=== PATIENT | female | born 1990 | race African-American/Black ===

== ENCOUNTER 2016-11-25 20:07 | Emergency (ER) | payer SELFPAY ==
[~2016-11-25] VITALS: Ht 185.4 cm; Wt 80.7 kg
[~2016-11-25 20:07] MED LIST: ALPR2TAB2 PO; BUPR150T6 PO; CRAN1CAP13 PO; CYAN1TAB28 PO; DESV100T PO; DEXT30TA2 PO; DIPH25CA58 PO; ENOX40DI SQ; HYDR-971 PO; HYDR50TA PO; IBUP800T2 PO; LEVE100020 PO; MESA800T2 PO; NITR100C62 PO; PANT20TA2 PO; PANT40TA3 PO; PENI500T PO; PRAZ1CAP2 PO; PRED50TA PO; TRAM50TA PO; TRAZ50TA15 PO; VENL75TA PO; WARF1TAB; ZOLP5TAB5 PO
[2016-11-25] MEDS ORDERED: TOPI50TA38 PO ×2 (20:40→23:28)
[2016-11-25] MEDS ORDERED: TRAM50TA PO ×2 (20:42→23:28)
[2016-11-25] MEDS ORDERED: PARO20TA55 PO (20:43)
[2016-11-25] MEDS ORDERED: CLON1TAB3 PO (20:45)
[2016-11-25] MEDS ORDERED: OLAN20TA3 PO (20:45)
[2016-11-25] MEDS ORDERED: PRED-220 PO (20:48)
[2016-11-25] MEDS ORDERED: ENOX40DI SQ (20:49)
[2016-11-25 21:10] LABS: BASO % 0 % (0-3); EOS % 0 % (0-3); HEMATOCRIT 31.3 % (36.0-47.0); LYMPH # 0.8 x10^3/uL (1.0-4.8); LYMPH % 12 % (24-48); MEAN CORPUSCULAR HEMOGLOBIN 27 pg (25-35); MEAN CORPUSCULAR HGB CONC 32 g/dL (31-37); MEAN CORPUSCULAR VOLUME 85 fL (79-100); MONO % 3 % (0-9); NEUT % 85 % (31-73); PLATELET COUNT 271 x10^3/uL (140-400); RED BLOOD COUNT 3.68 x10^6/uL (3.50-5.40); RED CELL DISTRIBUTION WIDTH 15.3 % (11.5-14.5); WHITE BLOOD COUNT 6.9 x10^3/uL (4.0-11.0)
--- NOTE | 2016-11-25 21:28 | ED.ADGEN ---
Past Medical History Past Medical History: Seizure, Stroke, Other Additional Past Medical Histor: Ulcerative colitis, Lupus & Protein S deficiency causing frequent DVTs Past Surgical History: Angioplasty, Other Additional Past Surgical Histo: Filter & x4 stents LEFT LEG Alcohol Use: None Drug Use: Marijuana Adult General Chief Complaint Chief Complaint: CHEST PAIN HPI HPI Patient is a 26 year old woman, history of ulcer colitis, CVA, protein C deficiency status post multiple DVTs, who presents to the emergency department with left-sided chest pain for the past 2 days. Patient's pain is located in the left side of her chest, that is radiating across to the right side of her chest, describes a sharp and stabbing in nature. Similar pain that she experienced previously, she states before she's had a seizure. Patient was released from incarceration 3 days ago, and states that she has only had some her medications since that time. She states she try to follow-up with her primary care provider but was unable to get an appointment for the next several weeks. She states she's not had any seizure activity, but states that she has been experiencing this pain constantly for the past 2 days, denies any history of PE, slightly nauseous and slightly lightheaded. Denies any weakness numbness or tingling. No abdominal pain. States she is not certain if she might be , her last mental period was 4 months ago. Review of Systems Review of Systems Constitutional: Denies fever or chills. [] Eyes: Denies change in visual acuity. [] HENT: Denies nasal congestion or sore throat. [] Respiratory: Denies cough or shortness of breath. [] Cardiovascular: Left-sided chest pain, radiating to the left arm. Radiating across to the right chest. GI: Denies abdominal pain, nausea, vomiting, bloody stools or diarrhea. [] : Denies dysuria. [] Musculoskeletal: Denies back pain or joint pain. [] Integument: Denies rash. [] Neurologic: Denies headache, focal weakness or sensory changes. [] Endocrine: Denies polyuria or polydipsia. [] Lymphatic: Denies swollen glands. [] Psychiatric: Denies depression or anxiety. [] Current Medications Current Medications Current Medications Medications (Trade) Dose Ordered Sig/Cyndi Start Time Stop Time Status Last Admin Dose Admin Info (Do NOT chart on this entry -- for MONITORING) 1 each PRN DAILY PRN 11/25/16 22:45 11/27/16 22:44 Iohexol (Omnipaque 300 Mg/ml) 75 ml 1X ONCE 11/25/16 22:45 11/25/16 22:46 DC Ondansetron HCl (Zofran) 4 mg 1X ONCE 11/25/16 21:30 11/25/16 21:31 DC 11/25/16 22:02 4 MG Sodium Chloride (Iv Sodium Chloride 0.9% 1000ml Bag) 1,000 ml @ 1,000 mls/hr 1X ONCE 11/25/16 21:30 11/25/16 22:29 DC 11/25/16 22:01 1,000 MLS/HR Tramadol HCl (Ultram) 50 mg 1X ONCE 11/25/16 22:00 11/25/16 22:01 DC 11/25/16 22:02 50 MG Allergies Allergies Allergies Coded Allergies Type Severity Reaction Last Updated Verified prochlorperazine Allergy Severe DYSTONIC REACTION 03/22/16 Yes warfarin Allergy Intermediate "AGGRAVATES ULCERS IN STOMACH" 03/22/16 Yes Physical Exam Physical Exam Constitutional: Well developed, well nourished, no acute distress, non-toxic appearance. [] HENT: Normocephalic, atraumatic, bilateral external ears normal, oropharynx moist, no oral exudates, nose normal. [] Eyes: PERRLA, EOMI, conjunctiva normal, no discharge. [] Neck: Normal range of motion, no tenderness, supple, no stridor. [] Cardiovascular:Heart rate regular rhythm, no murmur, S1, S2, tachycardic, no rubs or gallops. [] Lungs & Thorax: Bilateral breath sounds clear to auscultation, no wheezing, rhonchi, rales. Patient with tenderness to palpation across the anterior left chest and right chest. [] Abdomen: Bowel sounds normal, soft, no tenderness, no masses, no pulsatile masses. [] Skin: Warm, dry, no erythema, no rash. [] Back: No tenderness, no CVA tenderness. [] Extremities: No tenderness, no cyanosis, no clubbing, ROM intact, no edema. [] Negative Homans sign. Neurologic: Alert and oriented X 3, normal motor function, normal sensory function, no focal deficits noted. [] Psychologic: Affect normal, judgement normal, mood normal. [] Current Patient Data Vital Signs Vital Signs Date Time Temp Pulse Resp B/P Pulse Ox O2 Delivery O2 Flow Rate FiO2 11/25/16 22:02 20 97 Room Air 11/25/16 20:29 108 134/76 Lab Values Laboratory Tests Test 11/25/16 20:20 11/25/16 21:20 11/25/16 21:45 White Blood Count 6.9x10^3/uL (4.0-11.0) Red Blood Count 3.68x10^6/uL (3.50-5.40) Hemoglobin 10.0g/dL (12.0-15.5) L Hematocrit 31.3% (36.0-47.0) L Mean Corpuscular Volume 85fL (79-100) Mean Corpuscular Hemoglobin 27pg (25-35) Mean Corpuscular Hemoglobin Concent 32g/dL (31-37) Red Cell Distribution Width 15.3% (11.5-14.5) H Platelet Count 271x10^3/uL (140-400) Neutrophils (%) (Auto) 85% (31-73) H Lymphocytes (%) (Auto) 12% (24-48) L Monocytes (%) (Auto) 3% (0-9) Eosinophils (%) (Auto) 0% (0-3) Basophils (%) (Auto) 0% (0-3) Neutrophils # (Auto) 5.9x10^3uL (1.8-7.7) Lymphocytes # (Auto) 0.8x10^3/uL (1.0-4.8) L Monocytes # (Auto) 0.2x10^3/uL (0.0-1.1) Eosinophils # (Auto) 0.0x10^3/uL (0.0-0.7) Basophils # (Auto) 0.0x10^3/uL (0.0-0.2) D-Dimer (Katie) 1.05ug/mlFEU (0.00-0.50) H Urine Test Negative (NEG) Sodium Level 139mmol/L (136-145) Potassium Level 4.0mmol/L (3.5-5.1) Chloride Level 103mmol/L (98-107) Carbon Dioxide Level 22mmol/L (21-32) Anion Gap 14 (6-14) Blood Urea Nitrogen 13mg/dL (7-20) Creatinine 0.7mg/dL (0.6-1.0) Estimated GFR (Cockcroft-Gault) 120.6 BUN/Creatinine Ratio 19 (6-20) Glucose Level 102mg/dL (70-99) H Calcium Level 9.1mg/dL (8.5-10.1) Total Bilirubin 0.1mg/dL (0.2-1.0) L Aspartate Amino Transferase (AST) 26U/L (15-37) Alanine Aminotransferase (ALT) 26U/L (14-59) Alkaline Phosphatase 92U/L (46-116) Troponin I Quantitative < 0.017ng/mL (0.000-0.055) Total Protein 8.5g/dL (6.4-8.2) H Albumin 3.4g/dL (3.4-5.0) Albumin/Globulin Ratio 0.7 (1.0-1.7) L Lipase 153U/L (73-393) Urine Opiates Screen Pos (NEG) Urine Methadone Screen Neg (NEG) Urine Barbiturates Neg (NEG) Urine Phencyclidine Screen Neg (NEG) Urine Amphetamine/Methamphetamine Pos (NEG) Urine Benzodiazepines Screen Neg (NEG) Urine Cocaine Screen Neg (NEG) Urine Cannabinoids Screen Neg (NEG) Urine Ethyl Alcohol Neg (NEG) Influenza Type A Antigen Negative (NEGATIVE) Influenza Type B Antigen Negative (NEGATIVE) Laboratory Tests 11/25/16 20:20 Laboratory Tests 11/25/16 20:20 EKG EKG EC: Sinus tachycardia, heart rate 115 beats minute, upright axis, QTC of 439, OR 148, QRS of 88, no ST elevations or depressions, contour abnormalities noted in the inferior anterior lateral leads, abnormal ECG, does not meet STEMI criteria. As interpreted by me. [] Radiology/Procedures Radiology/Procedures Chest x-ray: PA and lateral: 2 view: Normal cardiopulmonary silhouette, no infiltrates, no effusions, no pneumothorax, no soft tissue or bony abnormalities identified. As interpreted by me. [] Course & Med Decision Making Course & Med Decision Making Pertinent Labs and Imaging studies reviewed. (See chart for details) Patient states that she's been compliant with her Lovenox. She denies any swelling in the extremities, right leg pain. Pain is reproducible across the anterior portion of her chest. She is requesting tramadol for the pain. Patient states she has not been able to get her tramadol or her Topamax for the past several days due to issues filling prescriptions being released from incarceration. Discussed with her that we'll to provide her with her bupropion, her tramadol, and her Topamax, however long-term and additional medications most provided by her primary care provider. She voices understanding. On reevaluation states she is feeling better after receiving her tramadol. I did discuss obtaining additional imaging of the chest in addition to the x-ray which was on concerning, due to concerns that she may have a recurrent blood clot, despite the fact that she has a filter in place. After discussion, patient did decline, at this time her oxygenation saturation is 9800% room air, respiratory rate is 18 and unlabored, heart rate is in the 80s. Patient states she has fluctuating tachycardia times. She did receive an ambulatory trial in the ED without any difficulty, states that she understands that we cannot fully rule out any potentially occult pathology in the chest without a CT, for which she is at higher risk due to her history, although she states she is taking her Lovenox as stated. Patient states that this time she would prefer to be discharged, will follow up with her primary care provider, and return to the ED if any concerning symptoms did develop. We discussed at length with the symptoms would entail, patient voiced agreement and understanding, discharged home with prescriptions as stated, in stable condition with plan as above. Dragon Disclaimer Dragon Disclaimer This electronic medical record was generated, in whole or in part, using a voice recognition dictation system. Departure Impression: Primary Impression: Chest pain Disposition: HOME, SELF-CARE Condition: IMPROVED Scripts Bupropion Hcl (Bupropion Hcl Sr)150 Mg Tablet.er150 Mg PO DAILY #30 Prov:MIKAYLA DESAI DO 11/25/16 Topiramate (Topamax)50 Mg Tablet1 Tab PO BID #60 TAB Ref 1 Prov:MIKAYLA DESAI DO 11/25/16 Tramadol Hcl 50 Mg Tablet1 Tab PO PRN Q6HRS PRN PAIN #20 TAB Prov:MIKAYLA DESAI DO 11/25/16 MIKAYLA DESAI DO Nov 25, 2016 21:28
[2016-11-25] MEDS ORDERED: IV NORMAL SALINE 1000ML BAG 1,000 ML IV ONE (21:30)
[2016-11-25] MEDS ORDERED: ONDANSETRON PF 4 MG/2 ML VIAL. IV ONE (21:30)
[2016-11-25 21:43] LABS: NEG OBC UR NEG; POS OBC UR POS
[2016-11-25 21:47] LABS: BARBITURATES NEG (NEG); BENZODIAZEPINES NEG (NEG); CANNABINOIDS NEG (NEG); COCAINE NEG (NEG); METHADONE NEG (NEG); OPIATES POS (NEG); PHENCYCLIDINE NEG (NEG)
[2016-11-25 21:53] LABS: ETHANOL, URINE NEG (NEG)
[2016-11-25] MEDS ORDERED: TRAMADOL 50 MG TABLET. PO ONE (22:00)
[2016-11-25 22:05] LABS: CALCIUM 9.1 mg/dL (8.5-10.1); CREATININE 0.7 mg/dL (0.6-1.0); GFR 120.6
[2016-11-25 22:11] LABS: ALBUMIN 3.4 g/dL (3.4-5.0); ALBUMIN/GLOBULIN RATIO 0.7 (1.0-1.7); TOTAL BILIRUBIN 0.1 mg/dL (0.2-1.0); TOTAL PROTEIN 8.5 g/dL (6.4-8.2)
[2016-11-25 22:18] LABS: OBC FLU VALID
[2016-11-25] MEDS ORDERED: CONTRAST GIVEN MC PRN (22:45)
[2016-11-25] MEDS ORDERED: IOHEXOL 300 MG/ML 75 ML VIAL IV ONE (22:45)
[2016-11-25 23:20] VITALS: BP 144/94
[2016-11-25] MEDS ORDERED: BUPR150T20 PO (23:28)
--- NOTE | 2016-11-26 08:03 | RAD ---
Chest, 2 views, 11/25/2016: History: Chest pain The heart size and pulmonary vascularity are normal. No pulmonary infiltrates are seen. There is no evidence of pleural fluid. IMPRESSION: No acute cardiopulmonary abnormality is detected.
== END 2016-11-26 00:15 | disposition home or self-care (01) ==
LOC: ER 20:07
DX: R07.9 Chest pain, unspecified (principal); F12.10 Cannabis abuse, uncomplicated; Z86.73 Personal history of transient ischemic attack (TIA), and cerebral infarction without residual deficits; Z86.718 Personal history of other venous thrombosis and embolism; Z88.8 Allergy status to other drugs, medicaments and biological substances; Z98.62 Peripheral vascular angioplasty status
CPT/HCPCS: 36415; 71020; 80053; 80305; 81025; 83690; 84484; 84703; 85027; 85379; 87804; 96361; 96374; 99285; J2405; J7030; G0481

== ENCOUNTER 2016-12-14 15:42 | Emergency (ER) | payer OTHER ==
[~2016-12-14] VITALS: Ht 185.4 cm; Wt 80.7 kg
[~2016-12-14 15:42] MED LIST changes: +BUPR150T20 PO; +CLON1TAB3 PO; +OLAN20TA3 PO; +PARO20TA55 PO; +PRED-220 PO; +TOPI50TA38 PO
[2016-12-14] MEDS ORDERED: HYDROMORPHONE 2 MG/ML VIAL. IV ONE (16:45)
[2016-12-14 16:56] LABS: BASO % 1 % (0-3); EOS % 6 % (0-3); HEMATOCRIT 34.2 % (36.0-47.0); HEMOGLOBIN 10.9 g/dL (12.0-15.5); LYMPH # 1.4 x10^3/uL (1.0-4.8); LYMPH % 23 % (24-48); MEAN CORPUSCULAR HEMOGLOBIN 28 pg (25-35); MEAN CORPUSCULAR HGB CONC 32 g/dL (31-37); MEAN CORPUSCULAR VOLUME 86 fL (79-100); MONO % 11 % (0-9); NEUT % 59 % (31-73); PLATELET COUNT 209 x10^3/uL (140-400); RED BLOOD COUNT 3.96 x10^6/uL (3.50-5.40); RED CELL DISTRIBUTION WIDTH 17.7 % (11.5-14.5)
[2016-12-14 17:05] LABS: CALCIUM 9.1 mg/dL (8.5-10.1); CREATININE 0.9 mg/dL (0.6-1.0); GFR 90.2; POTASSIUM 3.7 mmol/L (3.5-5.1)
[2016-12-14 17:06] LABS: INR 1.1 (0.8-1.1); PROTHROMBIN TIME PATIENT 13.5 SEC (11.7-14.0)
[2016-12-14 17:09] VITALS: BP 108/64
[2016-12-14 17:11] LABS: ALBUMIN 3.3 g/dL (3.4-5.0); DIRECT BILIRUBIN 0.1 mg/dL (0.0-0.2); TOTAL BILIRUBIN 0.2 mg/dL (0.2-1.0); TOTAL PROTEIN 8.2 g/dL (6.4-8.2)
--- NOTE | 2016-12-14 17:38 | RAD ---
Left lower extremity venous ultrasound, 12/14/2016: HISTORY - LEG PAIN Duplex evaluation of the deep veins in the left lower extremity was performed including grayscale, color flow and spectral Doppler analysis. The left common femoral and superficial femoral veins are patent. There is a small amount of nonocclusive thrombus in the left popliteal vein. There is thrombus in both peroneal veins in the left lower leg and 1 of the posterior tibial veins. IMPRESSION Deep vein thrombosis in the left popliteal, posterior tibial and peroneal veins as described above. Electronically signed by: Francisco Hawkins MD (Dec 14, 2016 17:36:41)
--- NOTE | 2016-12-14 17:46 | PHYS DOC ---
Past Medical History Past Medical History: Anemia, Bipolar, Depression, Seizure, Stroke, Other Additional Past Medical Histor: Ulcerative colitis, Lupus & Protein S deficiency causing frequent DVTs Past Surgical History: Angioplasty, Other Additional Past Surgical Histo: Filter & x4 stents LEFT LEG, D&C Alcohol Use: None Drug Use: Marijuana Adult General Chief Complaint Chief Complaint: LOWER EXTREMITY SWELLING HPI HPI Patient is a 26 year old female who presents with LLE pain and swelling. Patient reports that for the past week she has been having increasing swelling, pain, and discoloration of her LLE around her ankle and foot. No trauma or other inciting event. Patient does have h/o DVT in that leg, and says these symptoms are similar. Patient has multiple stents in that leg as well as IVC filter. She uses lovenox BID for anticoagulation; she was initially on warfarin but this was discontinued due to bleeding stomach ulcer. Patient says she has been compliant with the lovenox. She has not taken anything for pain prior to arrival. Lastly, patient describes intermittent chest discomfort. This is a chronic pain and is unchanged from baseline. She denies SOB. Current Medications Current Medications Current Medications Medications (Trade) Dose Ordered Sig/Cyndi Start Time Stop Time Status Last Admin Dose Admin Hydromorphone HCl (Dilaudid) 0.5 mg 1X ONCE 12/14/16 16:45 12/14/16 16:46 DC 12/14/16 16:54 0.5 MG Allergies Allergies Allergies Coded Allergies Type Severity Reaction Last Updated Verified prochlorperazine Allergy Severe DYSTONIC REACTION 03/22/16 Yes warfarin Allergy Intermediate "AGGRAVATES ULCERS IN STOMACH" 03/22/16 Yes Physical Exam Physical Exam Constitutional: Well developed, well nourished, no acute distress, non-toxic appearance HENT: Normocephalic, atraumatic, bilateral external ears normal Eyes: EOMI, conjunctiva normal, no discharge Neck: Normal range of motion, no stridor Cardiovascular: Tachycardic, regular rhythm, no murmur Lungs & Thorax: Bilateral breath sounds clear to auscultation Abdomen: Bowel sounds normal, soft, non-distended, no TTP Skin: Warm, dry, no erythema, no rash Extremities: L ankle and foot discolored (dark), swollen, generally TTP; 2+ DP pulse, brisk cap refill in toes; motor function and sensation to light touch preserved Neurologic: Alert and oriented X 3, no gross deficits noted Current Patient Data Vital Signs Vital Signs Date Time Temp Pulse Resp B/P Pulse Ox O2 Delivery O2 Flow Rate FiO2 12/14/16 17:09 92 14 108/64 Room Air 12/14/16 16:39 97 12/14/16 16:30 98.4 98.4 Lab Values Laboratory Tests Test 12/14/16 16:42 White Blood Count 6.0x10^3/uL (4.0-11.0) Red Blood Count 3.96x10^6/uL (3.50-5.40) Hemoglobin 10.9g/dL (12.0-15.5) L Hematocrit 34.2% (36.0-47.0) L Mean Corpuscular Volume 86fL (79-100) Mean Corpuscular Hemoglobin 28pg (25-35) Mean Corpuscular Hemoglobin Concent 32g/dL (31-37) Red Cell Distribution Width 17.7% (11.5-14.5) H Platelet Count 209x10^3/uL (140-400) Neutrophils (%) (Auto) 59% (31-73) Lymphocytes (%) (Auto) 23% (24-48) L Monocytes (%) (Auto) 11% (0-9) H Eosinophils (%) (Auto) 6% (0-3) H Basophils (%) (Auto) 1% (0-3) Neutrophils # (Auto) 3.5x10^3uL (1.8-7.7) Lymphocytes # (Auto) 1.4x10^3/uL (1.0-4.8) Monocytes # (Auto) 0.7x10^3/uL (0.0-1.1) Eosinophils # (Auto) 0.4x10^3/uL (0.0-0.7) Basophils # (Auto) 0.0x10^3/uL (0.0-0.2) Prothrombin Time 13.5SEC (11.7-14.0) Prothrombin Time INR 1.1 (0.8-1.1) PTT 28SEC (24-38) Sodium Level 140mmol/L (136-145) Potassium Level 3.7mmol/L (3.5-5.1) Chloride Level 106mmol/L (98-107) Carbon Dioxide Level 25mmol/L (21-32) Anion Gap 9 (6-14) Blood Urea Nitrogen 18mg/dL (7-20) Creatinine 0.9mg/dL (0.6-1.0) Estimated GFR (Cockcroft-Gault) 90.2 Glucose Level 96mg/dL (70-99) Calcium Level 9.1mg/dL (8.5-10.1) Total Bilirubin 0.2mg/dL (0.2-1.0) Direct Bilirubin 0.1mg/dL (0.0-0.2) Aspartate Amino Transferase (AST) 18U/L (15-37) Alanine Aminotransferase (ALT) 15U/L (14-59) Alkaline Phosphatase 84U/L (46-116) Total Protein 8.2g/dL (6.4-8.2) Albumin 3.3g/dL (3.4-5.0) L Laboratory Tests 12/14/16 16:42 Laboratory Tests 12/14/16 16:42 EKG EKG EKG (my read): sinus rhythm, rate 108, normal axis, intervals wnl, nonspecific ST changes Radiology/Procedures Radiology/Procedures LLE US: IMPRESSION Deep vein thrombosis in the left popliteal, posterior tibial and peroneal veins as described above. Course & Med Decision Making Course & Med Decision Making Pertinent Labs and Imaging studies reviewed. (See chart for details) Patient is 26 year old female who presents with LLE pain and swelling. Concern for possible DVT. Will obtain LLE US in addition to labs. Pain medication ordered for pain control. Labs largely unremarkable; hgb 10.9 at baseline. Imaging results as above. I spoke with Dr. Daniel of vascular surgery who says that with h/o bleeding gastric ulcer, would be ok to keep patient on lovenox rather than changing to another anticoagulant but recommended consultation with hematology as well. I then spoke with Dr. Ivey of hematology. Per his recommendation will change patient from lovenox to arixtra 7.5mg daily given subcutaneously. I discussed this with patient and recommended admission to hospital overnight. Patient refuses to stay in hospital, even after I discussed my concerns with her going home. She is A&Ox4 and acknowledges my concerns; I have given her instructions for close outpatient follow up as well as strict return precautions. Will discharge with rx for arixtra (and instruction to cease lovenox once she starts this new med), norco for pain control, and refill of keppra per patient request as she has run out of this med. Juma Disclaimer Juma Disclaimer This electronic medical record was generated, in whole or in part, using a voice recognition dictation system. Departure Departure Impression: Primary Impression: DVT (deep venous thrombosis) Disposition: HOME, SELF-CARE Condition: STABLE Referrals: LIBRADO IVEY MD, MICHAEL M MD Patient Instructions: Deep Vein Thrombosis Additional Instructions: Thank you for allowing us to provide care today in the Emergency Department. You have chosen to go home rather than stay in the hospital. If you have any new concerns, you are welcome to return. Take the provided medication as directed. You will give yourself a shot one time daily with this medication. 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 Schedule a follow up appointment with your primary care doctor and with a yarn hauler using the provided contact information. Return promptly to the Emergency Department if you develop any new or concerning symptoms, such as blood in your stool or worsening swelling in your leg. Scripts Hydrocodone/Apap 5-325 ([place] 5-325 Tablet)1 Each Tablet1-2 Tab PO Q6HRS PRN PAIN #25 TAB Prov:BRETT AVALOS MD 12/14/16 Levetiracetam (Keppra)1,000 Mg Tablet1,000 Mg PO TID 14 Days Prov:BRETT AVALOS MD 12/14/16 Fondaparinux Sodium (Arixtra)7.5 Mg/0.6 Ml Disp.syrin7.5 Mg SQ DAILY 14 Days Prov:BRETT AVALOS MD 12/14/16 BRETT AVALOS MD Dec 14, 2016 17:46
[2016-12-14] MEDS ORDERED: LEVE100020 PO (18:18)
[2016-12-14] MEDS ORDERED: [UNRECOGNIZED DRUG - CODE] SQ (18:18)
[2016-12-14] MEDS ORDERED: HYDR-971 PO (18:18)
--- NOTE | 2016-12-15 09:48 | EKG ---
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
== END 2016-12-14 18:26 | disposition home or self-care (01) ==
LOC: ER 16:01
DX: I82.4Z2 Acute embolism and thrombosis of unspecified deep veins of left distal lower extremity (principal); F31.9 Bipolar disorder, unspecified; F12.10 Cannabis abuse, uncomplicated; Z98.890 Other specified postprocedural states; Z95.5 Presence of coronary angioplasty implant and graft; Z86.73 Personal history of transient ischemic attack (TIA), and cerebral infarction without residual deficits; Z88.8 Allergy status to other drugs, medicaments and biological substances
CPT/HCPCS: 36415; 80048; 80076; 85027; 85610; 85730; 93005; 93971; 96374; 99285; J1170

== ENCOUNTER 2016-12-15 19:40 | Inpatient (IN) | payer OTHER ==
[~2016-12-15] VITALS: Ht 185.4 cm; Wt 81.6 kg
[~2016-12-15 19:40] MED LIST changes: +[UNRECOGNIZED DRUG - CODE] SQ
[2016-12-15] MEDS ORDERED: IV NORMAL SALINE 1000ML BAG 1,000 ML IV SCH (20:18)
[2016-12-15 20:26] LABS: BASO % 1 % (0-3); EOS % 4 % (0-3); HEMATOCRIT 32.1 % (36.0-47.0); HEMOGLOBIN 10.2 g/dL (12.0-15.5); LYMPH # 1.5 x10^3/uL (1.0-4.8); LYMPH % 29 % (24-48); MEAN CORPUSCULAR HEMOGLOBIN 28 pg (25-35); MEAN CORPUSCULAR HGB CONC 32 g/dL (31-37); MEAN CORPUSCULAR VOLUME 87 fL (79-100); MONO % 13 % (0-9); NEUT % 53 % (31-73); PLATELET COUNT 200 x10^3/uL (140-400); RED BLOOD COUNT 3.68 x10^6/uL (3.50-5.40); RED CELL DISTRIBUTION WIDTH 17.8 % (11.5-14.5); WHITE BLOOD COUNT 5.1 x10^3/uL (4.0-11.0)
[2016-12-15] MEDS ORDERED: ONDANSETRON PF 4 MG/2 ML VIAL. IV ONE (20:30)
--- NOTE | 2016-12-15 20:36 | PHYS DOC ---
Past Medical History Past Medical History: Anemia, Bipolar, Depression, Seizure, Stroke, Other Additional Past Medical Histor: Ulcerative colitis, Lupus & Protein S deficiency causing frequent DVTs Past Surgical History: Angioplasty, Other Additional Past Surgical Histo: Filter & x4 stents LEFT LEG, D&C Alcohol Use: None Drug Use: Marijuana Adult General Chief Complaint Chief Complaint: SHORTNESS OF BREATH HPI HPI Patient is a 26 year old female who presents with complaint of left lower extremity pain and swelling. Patient was seen yesterday in the emergency department and was diagnosed with a DVT. Patient has history of protein S deficiency and systemic lupus erythematosus. The patient has an IVC filter in place that she had been on previous anticoagulation but had developed a GI bleed. Patient came in because she is having worsening severe pain in her left lower extremity and also states that she has been having chest pain and shortness of breath. The patient was originally recommended to be admitted yesterday for treatment however she declined at that time. Patient states that due to worsening pain and worsening shortness of breath she came to the emergency department today and thinks that she does need to be admitted. Patient has not had any fevers. Patient rates pain currently is 10 out of 10. Review of Systems Review of Systems Constitutional: Denies fever or chills [] Eyes: Denies change in visual acuity, redness, or eye pain [] HENT: Denies nasal congestion or sore throat [] Respiratory: Shortness of breath [] Cardiovascular: Chest pain [] GI: Denies abdominal pain, nausea, vomiting, bloody stools or diarrhea [] : Denies dysuria or hematuria [] Musculoskeletal: Left lower show any pain and swelling [] Integument: Denies rash or skin lesions [] Neurologic: Denies headache, focal weakness or sensory changes [] Current Medications Current Medications Current Medications Medications (Trade) Dose Ordered Sig/Cyndi Start Time Stop Time Status Last Admin Dose Admin Heparin Sodium (Porcine) (Heparin Sodium) 1,100 unit PRN Q6HRS PRN 12/15/16 20:45 Heparin Sodium (Porcine) 5750 unit 5,750 unit 1X ONCE 12/15/16 20:45 12/15/16 20:50 DC 12/15/16 21:08 5,750 UNIT Heparin Sodium/ Dextrose 500 ml @ 0 mls/hr CONT PRN 12/15/16 20:45 12/15/16 21:11 0 MLS/HR Hydromorphone HCl (Dilaudid) 1 mg PRN Q1HR PRN 12/15/16 20:30 12/16/16 03:12 1 MG Iohexol (Omnipaque 300 Mg/ml) 75 ml 1X ONCE 12/15/16 20:45 12/15/16 20:46 DC Ondansetron HCl (Zofran) 4 mg 1X ONCE 12/15/16 20:30 12/15/16 20:31 DC 12/15/16 20:56 4 MG Sodium Chloride (Iv Sodium Chloride 0.9% 1000ml Bag) 1,000 ml @ 100 mls/hr Q10H 12/15/16 20:18 12/16/16 06:17 12/15/16 20:30 100 MLS/HR Allergies Allergies Allergies Coded Allergies Type Severity Reaction Last Updated Verified prochlorperazine Allergy Severe DYSTONIC REACTION 03/22/16 Yes warfarin Allergy Intermediate "AGGRAVATES ULCERS IN STOMACH" 03/22/16 Yes Physical Exam Physical Exam Constitutional: Alert, afebrile, appears in moderate discomfort. [] HENT: Normocephalic, atraumatic, bilateral external ears normal, oropharynx moist, no oral exudates, nose normal. [] Eyes: PERRLA, EOMI, conjunctiva normal, no discharge. [] Neck: Normal range of motion, no tenderness, supple, no stridor. [] Cardiovascular: Tachycardia, regular rhythm, no murmur [] Lungs & Thorax: Bilateral breath sounds clear to auscultation [] Abdomen: Bowel sounds normal, soft, no tenderness, no masses, no pulsatile masses. [] Skin: Warm, dry, no erythema, no rash. [] Back: No tenderness, no CVA tenderness. [] Extremities: Left lower extremity displays mild to moderate soft tissue swelling , calf tenderness present,, no cyanosis, no clubbing, ROM intact. [] Neurologic: Alert and oriented X 3, normal motor function, normal sensory function, no focal deficits noted. [] Current Patient Data Vital Signs Vital Signs Date Time Temp Pulse Resp B/P Pulse Ox O2 Delivery O2 Flow Rate FiO2 12/15/16 21:17 84 24 107/57 100 Room Air 12/15/16 19:50 98.3 98.3 Lab Values Laboratory Tests Test 12/15/16 20:19 White Blood Count 5.1x10^3/uL (4.0-11.0) Red Blood Count 3.68x10^6/uL (3.50-5.40) Hemoglobin 10.2g/dL (12.0-15.5) L Hematocrit 32.1% (36.0-47.0) L Mean Corpuscular Volume 87fL (79-100) Mean Corpuscular Hemoglobin 28pg (25-35) Mean Corpuscular Hemoglobin Concent 32g/dL (31-37) Red Cell Distribution Width 17.8% (11.5-14.5) H Platelet Count 200x10^3/uL (140-400) Neutrophils (%) (Auto) 53% (31-73) Lymphocytes (%) (Auto) 29% (24-48) Monocytes (%) (Auto) 13% (0-9) H Eosinophils (%) (Auto) 4% (0-3) H Basophils (%) (Auto) 1% (0-3) Neutrophils # (Auto) 2.7x10^3uL (1.8-7.7) Lymphocytes # (Auto) 1.5x10^3/uL (1.0-4.8) Monocytes # (Auto) 0.7x10^3/uL (0.0-1.1) Eosinophils # (Auto) 0.2x10^3/uL (0.0-0.7) Basophils # (Auto) 0.0x10^3/uL (0.0-0.2) Prothrombin Time 15.3SEC (11.7-14.0) H Prothrombin Time INR 1.3 (0.8-1.1) H PTT 34SEC (24-38) Sodium Level 142mmol/L (136-145) Potassium Level 3.4mmol/L (3.5-5.1) L Chloride Level 107mmol/L (98-107) Carbon Dioxide Level 24mmol/L (21-32) Anion Gap 11 (6-14) Blood Urea Nitrogen 14mg/dL (7-20) Creatinine 0.9mg/dL (0.6-1.0) Estimated GFR (Cockcroft-Gault) 90.2 BUN/Creatinine Ratio 16 (6-20) Glucose Level 99mg/dL (70-99) Calcium Level 8.9mg/dL (8.5-10.1) Total Bilirubin 0.2mg/dL (0.2-1.0) Aspartate Amino Transferase (AST) 19U/L (15-37) Alanine Aminotransferase (ALT) 15U/L (14-59) Alkaline Phosphatase 75U/L (46-116) Total Protein 8.1g/dL (6.4-8.2) Albumin 3.3g/dL (3.4-5.0) L Albumin/Globulin Ratio 0.7 (1.0-1.7) L Serum Test, Qualitative Negative (NEG) Laboratory Tests 12/15/16 20:19 Laboratory Tests 12/15/16 20:19 EKG EKG Interpreted by me: Heart rate 89, sinus rhythm, normal intervals, normal axis, no acute ST/T-wave abnormalities present [] Radiology/Procedures Radiology/Procedures One view AP chest x-ray interpreted by me: No infiltrate, no effusions, normal cardiac silhouette [facility] [address] [place], [place] [id number] IMAGING REPORT Signed PATIENT: TIM FISH ACCOUNT: [id number] : 1990 LOCATION: [facility] AGE: 26 SEX: F EXAM STATUS: ADM IN ORD. PHYSICIAN: MIGUE RUVALCABA MD REASON: rule out PE/ NM KNOWS PROCEDURE: LUNG VENT/PERFUSION SCAN(VQ) VQ lung scan Indication: Pulmonary embolism. The patient was administered 12 millicuries of Xenon 133 gas and inspiratory, equilibrium and washout views over the chest were performed. Next, the patient was administered 5.5 millicuries of technetium 99 M maa intravenously and imaging of the chest was performed at multiple obliquities. The ventilation portion of the exam shows homogeneous ventilation of both lungs. There is prompt washout from both lungs. No ventilation defect is seen. Perfusion portion of the exam demonstrates homogeneous perfusion of both lungs. No pleural-based perfusion defect is seen. Impression: Normal ventilation and perfusion lung scan. Electronically signed by: Nikhil Odonnell MD (Dec 15, 2016 23:35:17) DICTATED and SIGNED BY: NIKHIL ODONNELL MD DATE: 12/15/16 3591 CC: MIGUE RUVALCABA MD; NO PCP; MILES HUSSEIN MD ~ [] Course & Med Decision Making Course & Med Decision Making Pertinent Labs and Imaging studies reviewed. (See chart for details) Patient was given IV Dilaudid and Zofran for symptoms. I consult to Dr. Ivey of hematology who is familiar with the patient from last night's visit. I informed him that the pharmacy does not have Arixtra treatment to give to the patient at this time. He recommended the patient be started on IV heparin for now. The patient was initially given a 22-gauge IV which radiology noted this not large enough to be able to give IV contrast for a pulmonary embolism study. The patient is refusing at this time to have another IV put in place. Thus a V/ Q study was ordered. Patient admitted to Dr. Hussein. Patient's VQ study did not show evidence of pulmonary embolism. Dragon Disclaimer Dragon Disclaimer This electronic medical record was generated, in whole or in part, using a voice recognition dictation system. Departure Departure Impression: Primary Impression: DVT (deep venous thrombosis) Additional Impressions: Intractable pain Chest pain Disposition: ADMITTED INPATIENT Admitting Physician: Other Condition: GUARDED Referrals: NO PCP (PCP) Problem Qualifiers Primary Impression: DVT (deep venous thrombosis) DVT location: lower extremity Affected thrombotic vein of extremity: unspecified vein of extremity Laterality: left Chronicity: acute Qualified Code: I82.402 - Acute embolism and thrombosis of unspecified deep veins of left lower extremity Additional Impressions: Chest pain Chest pain type: unspecified Qualified Code: R07.9 - Chest pain, unspecified MIGUE RUVALCABA MD Dec 15, 2016 20:36
[2016-12-15 20:37] LABS: INR 1.3 (0.8-1.1); PROTHROMBIN TIME PATIENT 15.3 SEC (11.7-14.0)
[2016-12-15 20:38] LABS: CALCIUM 8.9 mg/dL (8.5-10.1); CREATININE 0.9 mg/dL (0.6-1.0); GFR 90.2; POTASSIUM 3.4 mmol/L (3.5-5.1)
[2016-12-15 20:43] LABS: ALBUMIN 3.3 g/dL (3.4-5.0); ALBUMIN/GLOBULIN RATIO 0.7 (1.0-1.7); TOTAL BILIRUBIN 0.2 mg/dL (0.2-1.0); TOTAL PROTEIN 8.1 g/dL (6.4-8.2)
[2016-12-15] MEDS ORDERED: HEPARIN for IV BOLUS 10,000 UNIT/10 ML VIAL. IV ONE (20:45)
[2016-12-15] MEDS ORDERED: IOHEXOL 300 MG/ML 75 ML VIAL IV ONE (20:45)
[2016-12-15] MEDS ORDERED: HEPARIN 25,000UTS/500ML PREMIX 500 ML IV PRN (20:45)
[2016-12-15] MEDS ORDERED: HEPARIN for IV BOLUS 10,000 UNIT/10 ML VIAL. IV PRN ×2 (20:45)
[2016-12-15] MEDS: HYDROMORPHONE 2 MG/ML VIAL. IV PRN ×2 (21:01→22:31)
--- NOTE | 2016-12-15 22:14 | ACF ---
Admission Forms Criteria DEEP VENOUS THROMBOSIS OF LOWER EXTREMITIES Clinical Indications for Admission to Inpatient Care ( Place 'X' for any and all applicable criteria): Admission is indicated for ANY ONE of the following (1)(2)(3)(4): [ ]I. Documented extensive thrombosis (e.g., clot in vena cava or above iliofemoral bifurcation) [ ]II. Limb-threatening thrombosis (e.g., phlegmasia cerulea dolens) [ ]III. Active bleeding [ ]IV. Recent surgery (e.g., within 6 weeks) [ ]V. Active peptic ulcer disease [ ]. Thrombosis while on anticoagulation [ ]VII. [ ]VIII. Appropriate monitoring and therapy cannot be provided in home or outpatient setting [ ]IX. Thrombolysis (e.g., catheter-directed) or pharmaco mechanical thrombectomy needed (3) [ ]X. Vena cava filter placement planned (3) [ ]XI. Severely diminished cardiopulmonary reserve (e.g., pulmonary hypertension) [ ]XII. Severe renal failure (e.g., GFR less than 30 mL/min/1.73m2 (0.5 mL/sec /1.73m2)) [X]XIII. Known clotting abnormality or deficiency (antithrombin III, protein C , or protein S) [ ]XIV. History of heparin-induced thrombocytopenia [ ]XV . Personal or family history of bleeding tendency or familial bleeding disorder that requires inpatient admission rather than observation care (Also use Deep Venous Thrombosis of Lower Extremities: Observation Care as appropriate) because of ANY ONE of the following: [ ]a) Significant allergic, autoimmune (thrombocytopenia), or coagulopathic reaction occurs in response to anticoagulation [ ]b) Other significant finding or clinical condition judged not to be within the scope of observation care Extended stay beyond goal length of stay may be needed for(1)(19): [ ]a) Hemorrhage or recent surgery(3) [ ]b) Inadequate oral anticoagulation [ ]c) Recurrent thromboembolism(3) [ ]d) Heparin-induced thrombocytopenia(14) The original [facility] content created by [facility] has been revised. The portions of the content which have been revised are identified through the use of italic text or in bold, and [facility] has neither reviewed nor approved the modified material. All other unmodified content is copyright [facility]. Please see references footnoted in the original [facility] edition 2016 Admission Criteria Met?: Yes JOSE REIS Dec 15, 2016 22:14
[2016-12-15 22:20] VITALS: BP 106/79
[2016-12-15] MEDS ORDERED: ONDANSETRON PF 4 MG/2 ML VIAL. IV PRN (22:30)
--- NOTE | 2016-12-15 23:36 | RAD ---
VQ lung scan Indication: Pulmonary embolism. The patient was administered 12 millicuries of Xenon 133 gas and inspiratory, equilibrium and washout views over the chest were performed. Next, the patient was administered 5.5 millicuries of technetium 99 M maa intravenously and imaging of the chest was performed at multiple obliquities. The ventilation portion of the exam shows homogeneous ventilation of both lungs. There is prompt washout from both lungs. No ventilation defect is seen. Perfusion portion of the exam demonstrates homogeneous perfusion of both lungs. No pleural-based perfusion defect is seen. Impression: Normal ventilation and perfusion lung scan. Electronically signed by: Nikhil Odonnell MD (Dec 15, 2016 23:35:17)
[2016-12-16 00:07] LABS: NEG OBC SER NEG; POS OBC SER POS
[2016-12-16] MEDS ORDERED: CLON2TAB2 PO (00:41)
[2016-12-16] MEDS ORDERED: LEVE100020 PO (00:42)
[2016-12-16] MEDS ORDERED: HYDR-2762 PO (00:43)
[2016-12-16] MEDS ORDERED: TOPI50TA38 PO (00:43)
[2016-12-16] MEDS ORDERED: BUPR150T15 PO (00:44)
[2016-12-16] MEDS ORDERED: TRAZ100T12 PO (00:44)
[2016-12-16] MEDS ORDERED: DEXT20CA7 PO (00:45)
[2016-12-16] MEDS ORDERED: OLAN20TA3 PO (00:46)
[2016-12-16] MEDS: HYDROMORPHONE 2 MG/ML VIAL. IV PRN ×4 (03:12→21:08)
[2016-12-16 03:29] VITALS: BP 92/47
[2016-12-16 04:41] LABS: BASO % 1 % (0-3); EOS % 5 % (0-3); HEMATOCRIT 32.1 % (36.0-47.0); HEMOGLOBIN 10.2 g/dL (12.0-15.5); LYMPH # 2.9 x10^3/uL (1.0-4.8); LYMPH % 55 % (24-48); MEAN CORPUSCULAR HEMOGLOBIN 28 pg (25-35); MEAN CORPUSCULAR HGB CONC 32 g/dL (31-37); MEAN CORPUSCULAR VOLUME 87 fL (79-100); MONO % 10 % (0-9); NEUT % 29 % (31-73); PLATELET COUNT 173 x10^3/uL (140-400); RED BLOOD COUNT 3.68 x10^6/uL (3.50-5.40); RED CELL DISTRIBUTION WIDTH 17.9 % (11.5-14.5); WHITE BLOOD COUNT 5.3 x10^3/uL (4.0-11.0)
[2016-12-16 05:05] LABS: CALCIUM 8.4 mg/dL (8.5-10.1); CREATININE 0.7 mg/dL (0.6-1.0); GFR 120.6; POTASSIUM 3.9 mmol/L (3.5-5.1)
[2016-12-16] MEDS: IV NORMAL SALINE 1000ML BAG 1,000 ML IV SCH ×3 (05:33→18:03)
--- NOTE | 2016-12-16 06:26 | EKG ---
[facility] [address] [place] [address] Test Date: 2016-12-15 Test Time: 20:35:16 Pat Name: TIM FISH Department: Room: 262 1 Gender: F [employer]: : 1990 Requested By: MIGUE RUVALCABA Order Number: [id number] Reading MD: Hanna Sim Measurements Intervals [place] Rate: 89 P: 37 DC: 158 QRS: 53 QRSD: 102 T: 46 QT: 364 QTc: 444 Interpretive Statements SINUS RHYTHM NORMAL ECG RI6.01 Compared to ECG 03/24/2016 22:48:24 No significant changes Electronically Signed On 12-21-2016 12:36:24 CDT by Hanna Sim
[2016-12-16 07:00] VITALS: BP 101/62
--- NOTE | 2016-12-16 07:26 | RAD ---
Portable chest, 12/15/2016: History: Shortness of breath, chest pain Comparison is made to a study from 11/25/2016. The heart size and pulmonary vascularity are normal. There is minimal prominence of the left basilar markings compatible with atelectasis. No pulmonary consolidation is seen. There is no evidence of pleural fluid. IMPRESSION: Minimal left basilar atelectasis.
--- NOTE | 2016-12-16 09:49 | PDOC ---
Provider Note Provider Note Onc consult dictated- [id number] H/o multiple DVTs now with new LLE DVT- On heparin, plan to switch to eliquis residential if OOP cost not too high, otherwise lovenox which she has done previously. Needs lifelong blood thinners. H/o Ulcerative colitis with ongoing severe constipation now, reports h/o GI bleed none currently- Requests GI to see while here. Consult placed. Thank you. MASSIEL RICHARD DO Dec 16, 2016 09:49
[2016-12-16] MEDS ORDERED: MAGNESIUM HYDROXIDE 2,400 MG/30 ML ORAL.SUSP. PO PRN (11:00)
[2016-12-16] MEDS: traZODone 100 MG TABLET. PO SCH ×2 (11:00→21:50)
[2016-12-16] MEDS ORDERED: ONDANSETRON PF 4 MG/2 ML VIAL. IV PRN (11:00)
[2016-12-16] MEDS ORDERED: ACETAMINOPHEN 325 MG TABLET. PO PRN (11:00)
[2016-12-16] MEDS ORDERED: TRAMADOL 50 MG TABLET. PO PRN (11:00)
[2016-12-16 11:21] VITALS: BP 120/71
--- NOTE | 2016-12-16 11:41 | CONS ---
DATE OF CONSULTATION: 12/16/2016 ONCOLOGY CONSULT NOTE REFERRING PROVIDER: Julien Macias M.D. REASON FOR CONSULTATION: DVT, history of GI bleed. HISTORY OF PRESENT ILLNESS: The patient is a 26-year-old female who has a history of lupus and preeclampsia causing demise in her . She experienced multiple blood clots which she describes throughout the entire left side of her body. She had an IVC filter placed. She also was placed on Coumadin, which she reports caused gastric ulcers. She was then placed on Lovenox. She states that she continued on this for 5 years and did not have any further blood clots and told she was recently incarcerated late last year. For some reason, this medication, she reports was discontinued in the care home. Upon leaving the care home 3 months ago, she continued to remain off the Lovenox, said that was held while she was there. She then presented yesterday with a new left lower extremity DVT causing symptomatic pain and swelling. She has now been started on a heparin drip. She has not had any ongoing issues with GI bleeds. She also reports a history of ulcerative colitis, on some immunosuppression as an outpatient. She now is concerned that she repeatedly has constipation for 2 weeks at a time with only very small bowel movements. This sometimes causes severe nausea for her. She requests GI followup while she is here. PAST MEDICAL HISTORY: Protein S deficiency, lupus, reported having gastric ulcer due to previous medications, ulcerative colitis, hepatomegaly per chart review, also bipolar depression and schizophrenia. PAST SURGICAL HISTORY: IVC filter placement, D and C. FAMILY HISTORY: Unknown to the patient. SOCIAL HISTORY: Recently incarcerated. Denies any tobacco, alcohol or drug use. ALLERGIES: COUMADIN, COMPAZINE. CURRENT MEDICATIONS: Normal saline, Zofran, heparin, Dilaudid. REVIEW OF SYSTEMS: Ten-point review of systems completed and unremarkable with the exception of the constipation, left lower extremity swelling and pain. PHYSICAL EXAMINATION: VITAL SIGNS: Temperature 97.5, pulse 85, respiratory rate 16, blood pressure 101/62, 98% O2 on room air. GENERAL: She is alert and oriented though does appear very fatigued after taking some pain medication. No distress at this time. HEENT: Extraocular muscles are intact. Sclerae are without icterus. Mucous membranes are moist. CARDIOVASCULAR: Heart is regular in rhythm and rate. LUNGS: Clear to auscultation bilaterally. ABDOMEN: Soft, nontender. EXTREMITIES: 1+ edema, distal left lower extremity. No swelling in other extremities. NEUROLOGIC: No focal deficits. IMAGING/LABORATORY DATA: Left lower extremity ultrasound confirmed a popliteal, posterior tibial and peroneal vein acute DVT. V/Q scan was negative. CBC notable for hemoglobin 10.2, which appears to be her baseline. The remainder of her CBC and CMP are unremarkable. ASSESSMENT AND PLAN: The patient is a 26-year-old female with the following medical problems: 1. Left lower extremity acute deep venous thrombosis with history of multiple blood clots previously. Clinically, she appears to be very prone to have recurrent clots and needs lifelong anticoagulation. She is tolerating the heparin without difficulty. If there are no planned procedures this admission, I would recommend starting Eliquis as she would like to be on an oral medication mcfp. I will place a request for nurse case management to please check and make sure she does not have a large [id number] cost. 2. History of reported ulcerative colitis, now with ongoing severe constipation, reported history of GI bleeding. She has requested that GI see her while she is here, so I have placed this consult as well. There does not appear to be any active GI bleeding at this time, so I do think anticoagulation is okay to give. Thank you for allowing me to participate in her care. MASSIEL RICHARD DO DR: Armand JOB#: [id number] / [id number]
[2016-12-16] MEDS: SENNOSIDES/DOCUSATE 8.6/50MG TABLET. PO SCH ×2 (12:52→21:49)
[2016-12-16] MEDS: DOCUSATE SODIUM 100 MG CAPSULE. PO SCH ×2 (12:52→21:49)
[2016-12-16] MEDS: TOPIRAMATE 25 MG TABLET. PO SCH ×2 (12:52→21:51)
[2016-12-16] MEDS: buPROPion XL 150 MG TAB.ER.24H. PO SCH (12:52)
[2016-12-16] MEDS: CLONAZEPAM 1 MG TABLET. PO SCH ×2 (12:53→21:51)
[2016-12-16] MEDS: HYDROCODONE/APAP 7.5/325MG TABLET. PO PRN (12:53)
--- NOTE | 2016-12-16 12:57 | PDOC2 ---
CONSULT Date of Consult Date of Consult DATE: 12/16/16 TIME: 12:56 Reason for Consult Reason for Consult: Ulcerative colitis flare/DVTS Past Medical History Cardiovascular: Other Pulmonary: No pertinent hx CENTRAL NERVOUS SYSTEM: Migraine, Seizure GI: Inflam bowel disease Heme/Onc: Other Hepatobiliary: No pertinent hx Psych: Anxiety, Bipolar, Depression, Schizophrenia Rheumatologic: Fibromyalgia, Other Infectious disease: No pertinent hx Renal/: No pertinent hx Endocrine: No pertinent hx Past Surgical History Past Surgical History: Other Social History ALCOHOL: none Drugs: Marijuana Current Problem List Problem List Problems Medical Problems: (1) Chest pain Status: Acute (2) Deep vein thrombosis (DVT) of left lower extremity Status: Acute (3) DVT (deep venous thrombosis) Status: Acute (4) Intractable pain Status: Acute Current Medications Current Medications Current Medications Sodium Chloride (Iv Sodium Chloride 0.9% 1000ml Bag) 1,000 ml @ 100 mls/hr Q10H IV Last administered on 12/15/16 20:30; Start 12/15/16 at 20:18; Stop at 06:17; Status DC Hydromorphone HCl (Dilaudid) 1 mg PRN Q1HR PRN IV PAIN Last administered on 07:48; Start 12/15/16 at 20:30; Stop 12/16/16 at 10:56; Status DC Ondansetron HCl (Zofran) 4 mg 1X ONCE IV Last administered on 12/15/16 20:56 ; Start 12/15/16 at 20:30; Stop 12/15/16 at 20:31; Status DC Iohexol (Omnipaque 300 Mg/ml) 75 ml 1X ONCE IV ; Start 12/15/16 at 20:45; Stop 12/15/16 at 20:46; Status DC Heparin Sodium (Porcine) 5750 unit 5,750 unit 1X ONCE IV Last administered on 12/15/16 21:08; Start 12/15/16 at 20:45; Stop 12/15/16 at 20:50; Status DC Heparin Sodium/ Dextrose 500 ml @ 0 mls/hr CONT PRN IV SEE I/O RECORD Last administered on 12/15/16 21:11; Start 12/15/16 at 20:45 Heparin Sodium (Porcine) (Heparin Sodium) 2,150 unit PRN Q6HRS PRN IV FOR UFH LEVEL LESS THAN 0.2; Start 12/15/16 at 20:45 Heparin Sodium (Porcine) (Heparin Sodium) 1,100 unit PRN Q6HRS PRN IV FOR UFH LEVEL 0.2 - 0.29; Start 12/15/16 at 20:45 Ondansetron HCl 4 mg 4 mg PRN Q8HRS PRN IV NAUSEA/VOMITING; Start 12/15/16 at 22:30; Stop 12/16/16 at 22:29 Sodium Chloride (Iv Sodium Chloride 0.9% 1000ml Bag) 1,000 ml @ 100 mls/hr Q10H IV Last administered on 12/16/16 05:33; Start 12/15/16 at 22:30; Stop at 22:29 Bupropion HCl (Wellbutrin Xl) 150 mg DAILYWBKFT PO Last administered on 12:52; Start 12/16/16 at 11:00 Acetaminophen/ Hydrocodone Bitart (Lortab 7.5/325) 1 tab PRN TID PRN PO PAIN Last administered on 12/16/16 12:53; Start 12/16/16 at 11:00 Trazodone HCl (Desyrel) 100 mg BID PO Last administered on 12/16/16 11:00; Start 12/16/16 at 11:00 Clonazepam (Klonopin) 2 mg BID PO Last administered on 12/16/16 12:53; Start 12/16/16 at 11:00 Non-Formulary Medication 40 mg DAILY PO ; Start 12/17/16 at 09:00; Status UNV Non-Formulary Medication 3 tab TID PO ; Start 12/16/16 at 14:00; Status UNV Olanzapine (Zyprexa) 20 mg HS PO ; Start 12/16/16 at 21:00 Topiramate (Topamax) 50 mg BID PO Last administered on 12/16/16 12:52; Start 12/16/16 at 11:15 Hydromorphone HCl (Dilaudid) 1 mg PRN Q4HRS PRN IV PAIN; Start 12/16/16 at 20: 30 Acetaminophen (Tylenol) 650 mg PRN Q6HRS PRN PO FEVER; Start 12/16/16 at 11:00 Ondansetron HCl (Zofran) 4 mg PRN Q6HRS PRN IV NAUSEA/VOMITING; Start 12/16/16 at 11:00 Tramadol HCl (Ultram) 100 mg PRN Q6HRS PRN PO PAIN; Start 12/16/16 at 11:00 Senna/Docusate Sodium (Senna Plus) 1 tab BID PO Last administered on 12/16/16 12:52; Start 12/16/16 at 11:00 Docusate Sodium (Colace) 100 mg BID PO Last administered on 12/16/16 12:52; Start 12/16/16 at 11:00 Magnesium Hydroxide (Milk Of Magnesia) 2,400 mg PRN Q12HR PRN PO CONSTIPATION; Start 12/16/16 at 11:00 Active Scripts Active Reported Zyprexa (Olanzapine) 20 Mg Tablet 1 Tab PO QHS Adderall Xr 20 Mg Capsule (Dextroamphetamine/Amphetamine) 20 Mg Cap.er.24h 40 Mg PO DAILY Wellbutrin Xl (Bupropion Hcl) 150 Mg Tab.er.24h 1 Tab PO DAILYWBKFT Trazodone Hcl 100 Mg Tablet 1 Tab PO BID Topamax (Topiramate) 50 Mg Tablet 1 Tab PO BID Hydrocodone-Apap 7.5-325 (Hydrocodone Bit/Acetaminophen) 1 Each Tablet 1 Tab PO TID PRN Keppra (Levetiracetam) 1,000 Mg Tablet 3 Tab PO TID Clonazepam 2 Mg Tablet 1 Tab PO BID Allergies Allergies: Coded Allergies: prochlorperazine (Verified Allergy, Severe, DYSTONIC REACTION, 03/22/16) warfarin (Verified Allergy, Intermediate, "AGGRAVATES ULCERS IN STOMACH", 03/22/16) Vitals VITALS Vital Signs Date Time Temp Pulse Resp B/P Pulse Ox O2 Delivery O2 Flow Rate FiO2 12/16/16 12:53 100 Room Air 12/16/16 11:21 98.0 103 18 120/71 98.0 Labs Labs Laboratory Tests Test 12/15/16 20:19 12/16/16 03:05 White Blood Count 5.1x10^3/uL (4.0-11.0) 5.3x10^3/uL (4.0-11.0) Red Blood Count 3.68x10^6/uL (3.50-5.40) 3.68x10^6/uL (3.50-5.40) Hemoglobin 10.2g/dL (12.0-15.5) 10.2g/dL (12.0-15.5) Hematocrit 32.1% (36.0-47.0) 32.1% (36.0-47.0) Mean Corpuscular Volume 87fL (79-100) 87fL (79-100) Mean Corpuscular Hemoglobin 28pg (25-35) 28pg (25-35) Mean Corpuscular Hemoglobin Concent 32g/dL (31-37) 32g/dL (31-37) Red Cell Distribution Width 17.8% (11.5-14.5) 17.9% (11.5-14.5) Platelet Count 200x10^3/uL (140-400) 173x10^3/uL (140-400) Neutrophils (%) (Auto) 53% (31-73) 29% (31-73) Lymphocytes (%) (Auto) 29% (24-48) 55% (24-48) Monocytes (%) (Auto) 13% (0-9) 10% (0-9) Eosinophils (%) (Auto) 4% (0-3) 5% (0-3) Basophils (%) (Auto) 1% (0-3) 1% (0-3) Neutrophils # (Auto) 2.7x10^3uL (1.8-7.7) 1.5x10^3uL (1.8-7.7) Lymphocytes # (Auto) 1.5x10^3/uL (1.0-4.8) 2.9x10^3/uL (1.0-4.8) Monocytes # (Auto) 0.7x10^3/uL (0.0-1.1) 0.5x10^3/uL (0.0-1.1) Eosinophils # (Auto) 0.2x10^3/uL (0.0-0.7) 0.3x10^3/uL (0.0-0.7) Basophils # (Auto) 0.0x10^3/uL (0.0-0.2) 0.0x10^3/uL (0.0-0.2) Prothrombin Time 15.3SEC (11.7-14.0) Prothromb Time International Ratio 1.3 (0.8-1.1) Activated Partial Thromboplast Time 34SEC (24-38) Sodium Level 142mmol/L (136-145) 144mmol/L (136-145) Potassium Level 3.4mmol/L (3.5-5.1) 3.9mmol/L (3.5-5.1) Chloride Level 107mmol/L (98-107) 109mmol/L (98-107) Carbon Dioxide Level 24mmol/L (21-32) 24mmol/L (21-32) Anion Gap 11 (6-14) 11 (6-14) Blood Urea Nitrogen 14mg/dL (7-20) 13mg/dL (7-20) Creatinine 0.9mg/dL (0.6-1.0) 0.7mg/dL (0.6-1.0) Estimated GFR (Cockcroft-Gault) 90.2 120.6 BUN/Creatinine Ratio 16 (6-20) Glucose Level 99mg/dL (70-99) 94mg/dL (70-99) Calcium Level 8.9mg/dL (8.5-10.1) 8.4mg/dL (8.5-10.1) Total Bilirubin 0.2mg/dL (0.2-1.0) Aspartate Amino Transf (AST/SGOT) 19U/L (15-37) Alanine Aminotransferase (ALT/SGPT) 15U/L (14-59) Alkaline Phosphatase 75U/L (46-116) Total Protein 8.1g/dL (6.4-8.2) Albumin 3.3g/dL (3.4-5.0) Albumin/Globulin Ratio 0.7 (1.0-1.7) Serum Test, Qualitative Negative (NEG) Heparin Anti-Xa Act, Unfractionated 0.80IU/mL (0.30-0.70) Laboratory Tests Test 12/15/16 20:19 12/16/16 03:05 White Blood Count 5.1x10^3/uL (4.0-11.0) 5.3x10^3/uL (4.0-11.0) Red Blood Count 3.68x10^6/uL (3.50-5.40) 3.68x10^6/uL (3.50-5.40) Hemoglobin 10.2g/dL (12.0-15.5) 10.2g/dL (12.0-15.5) Hematocrit 32.1% (36.0-47.0) 32.1% (36.0-47.0) Mean Corpuscular Volume 87fL (79-100) 87fL (79-100) Mean Corpuscular Hemoglobin 28pg (25-35) 28pg (25-35) Mean Corpuscular Hemoglobin Concent 32g/dL (31-37) 32g/dL (31-37) Red Cell Distribution Width 17.8% (11.5-14.5) 17.9% (11.5-14.5) Platelet Count 200x10^3/uL (140-400) 173x10^3/uL (140-400) Neutrophils (%) (Auto) 53% (31-73) 29% (31-73) Lymphocytes (%) (Auto) 29% (24-48) 55% (24-48) Monocytes (%) (Auto) 13% (0-9) 10% (0-9) Eosinophils (%) (Auto) 4% (0-3) 5% (0-3) Basophils (%) (Auto) 1% (0-3) 1% (0-3) Neutrophils # (Auto) 2.7x10^3uL (1.8-7.7) 1.5x10^3uL (1.8-7.7) Lymphocytes # (Auto) 1.5x10^3/uL (1.0-4.8) 2.9x10^3/uL (1.0-4.8) Monocytes # (Auto) 0.7x10^3/uL (0.0-1.1) 0.5x10^3/uL (0.0-1.1) Eosinophils # (Auto) 0.2x10^3/uL (0.0-0.7) 0.3x10^3/uL (0.0-0.7) Basophils # (Auto) 0.0x10^3/uL (0.0-0.2) 0.0x10^3/uL (0.0-0.2) Prothrombin Time 15.3SEC (11.7-14.0) Prothromb Time International Ratio 1.3 (0.8-1.1) Activated Partial Thromboplast Time 34SEC (24-38) Sodium Level 142mmol/L (136-145) 144mmol/L (136-145) Potassium Level 3.4mmol/L (3.5-5.1) 3.9mmol/L (3.5-5.1) Chloride Level 107mmol/L (98-107) 109mmol/L (98-107) Carbon Dioxide Level 24mmol/L (21-32) 24mmol/L (21-32) Anion Gap 11 (6-14) 11 (6-14) Blood Urea Nitrogen 14mg/dL (7-20) 13mg/dL (7-20) Creatinine 0.9mg/dL (0.6-1.0) 0.7mg/dL (0.6-1.0) Estimated GFR (Cockcroft-Gault) 90.2 120.6 BUN/Creatinine Ratio 16 (6-20) Glucose Level 99mg/dL (70-99) 94mg/dL (70-99) Calcium Level 8.9mg/dL (8.5-10.1) 8.4mg/dL (8.5-10.1) Total Bilirubin 0.2mg/dL (0.2-1.0) Aspartate Amino Transf (AST/SGOT) 19U/L (15-37) Alanine Aminotransferase (ALT/SGPT) 15U/L (14-59) Alkaline Phosphatase 75U/L (46-116) Total Protein 8.1g/dL (6.4-8.2) Albumin 3.3g/dL (3.4-5.0) Albumin/Globulin Ratio 0.7 (1.0-1.7) Serum Test, Qualitative Negative (NEG) Heparin Anti-Xa Act, Unfractionated 0.80IU/mL (0.30-0.70) Assessment/Plan Assessment/Plan Ulcerative colitis- with flare, will resume oral steroids, begin anticoagulation MAYKEL QUINTANILLA MD Dec 16, 2016 12:57
--- NOTE | 2016-12-16 13:29 | PDOC1 ---
History and Physical Date of Admission Date of Admission 12/16/16 Identification/Chief Complaint Chief Complaint left leg pain, dvt Problems: Source Source: Chart review, Patient History of Present Illness History of Present Illness HPI HPI Patient is a 26 year old female who presents with complaint of left lower extremity pain and swelling for a few days. Pt has history of protein S deficiency and systemic lupus erythematosus, h/o DVT 3 TImes before. The patient has an IVC filter in place, on levonox bid currently, has h/o UC, with GIB. Recently not on any meds for UC, chronic constipation, last BM was 1 week ago, not taking stool softner. The patient was originally recommended to be admitted on 12/14 for treatment however she declined at that time. Patient states that due to worsening pain and worsening shortness of breath she came to the emergency department today and thinks that she does need to be admitted. Patient has not had any fevers. Patient rates pain currently is 10 out of 10. no sob, or chest pain. US left leg + DVT, PE neg from VQ scan. Past Medical History Cardiovascular: Other Pulmonary: No pertinent hx CENTRAL NERVOUS SYSTEM: Migraine, Seizure GI: Inflam bowel disease Heme/Onc: Other Hepatobiliary: No pertinent hx Psych: Anxiety, Bipolar, Depression, Schizophrenia Rheumatologic: Fibromyalgia, Other Infectious disease: No pertinent hx Renal/: No pertinent hx Endocrine: No pertinent hx Past Surgical History Past Surgical History: Other Social History Smoke: No ALCOHOL: none Drugs: Marijuana Current Problem List Problem List Problems Medical Problems: (1) Chest pain Status: Acute (2) Deep vein thrombosis (DVT) of left lower extremity Status: Acute (3) DVT (deep venous thrombosis) Status: Acute (4) Intractable pain Status: Acute Current Medications Current Medications Current Medications Medications (Trade) Dose Ordered Sig/Cyndi Start Time Stop Time Status Last Admin Dose Admin Acetaminophen (Tylenol) 650 mg PRN Q6HRS PRN 12/16/16 11:00 Acetaminophen/ Hydrocodone Bitart (Lortab 7.5/325) 1 tab PRN TID PRN 12/16/16 11:00 12/16/16 12:53 1 TAB Bupropion HCl (Wellbutrin Xl) 150 mg DAILYWBKFT 12/16/16 11:00 12/16/16 12:52 150 MG Clonazepam (Klonopin) 2 mg BID 12/16/16 11:00 12/16/16 12:53 2 MG Docusate Sodium (Colace) 100 mg BID 12/16/16 11:00 12/16/16 12:52 100 MG Heparin Sodium (Porcine) (Heparin Sodium) 1,100 unit PRN Q6HRS PRN 12/15/16 20:45 Heparin Sodium (Porcine) 5750 unit 5,750 unit 1X ONCE 12/15/16 20:45 12/15/16 20:50 DC 12/15/16 21:08 5,750 UNIT Heparin Sodium/ Dextrose 500 ml @ 0 mls/hr CONT PRN 12/15/16 20:45 12/15/16 21:11 0 MLS/HR Hydromorphone HCl (Dilaudid) 1 mg PRN Q4HRS PRN 12/16/16 20:30 Iohexol (Omnipaque 300 Mg/ml) 75 ml 1X ONCE 12/15/16 20:45 12/15/16 20:46 DC Magnesium Hydroxide (Milk Of Magnesia) 2,400 mg PRN Q12HR PRN 12/16/16 11:00 Mesalamine (Pentasa) 1,000 mg [id number] 12/16/16 17:00 Non-Formulary Medication 3 tab TID 12/16/16 14:00 UNV Olanzapine (Zyprexa) 20 mg HS 12/16/16 21:00 Ondansetron HCl (Zofran) 4 mg PRN Q6HRS PRN 12/16/16 11:00 Ondansetron HCl 4 mg 4 mg PRN Q8HRS PRN 12/15/16 22:30 12/16/16 22:29 Prednisone (Prednisone) 20 mg BID 12/16/16 13:00 Senna/Docusate Sodium (Senna Plus) 1 tab BID 12/16/16 11:00 12/16/16 12:52 1 TAB Sodium Chloride (Iv Sodium Chloride 0.9% 1000ml Bag) 1,000 ml @ 100 mls/hr Q10H 12/15/16 22:30 12/16/16 22:29 12/16/16 05:33 100 MLS/HR Topiramate (Topamax) 50 mg BID 12/16/16 11:15 12/16/16 12:52 50 MG Tramadol HCl (Ultram) 100 mg PRN Q6HRS PRN 12/16/16 11:00 Trazodone HCl (Desyrel) 100 mg BID 12/16/16 11:00 12/16/16 11:00 100 MG Allergies Allergies Allergies Coded Allergies Type Severity Reaction Last Updated Verified prochlorperazine Allergy Severe DYSTONIC REACTION 03/22/16 Yes warfarin Allergy Intermediate "AGGRAVATES ULCERS IN STOMACH" 03/22/16 Yes ROS Review of System CONSTITUTIONAL: No fever or chills EYES: No recent changes SKIN: No rash or itching CARDIOVASCULAR: No chest pain, syncope, palpitations, or edema RESPIRATORY: No SOB or cough GASTROINTESTINAL: No nausea, vomiting or abdominal pain NEUROLOGICAL: No headaches or weakness ENDOCRINE: No cold or heat intolerance GENITOURINARY: No urgency or frequency of urination MUSCULOSKELETAL: No back pain or joint pain LYMPHATICS: No enlarged lymph nodes PSYCHIATRIC: No anxiety or depression Physical Exam Physical Exam GEN.: No apparent distress. Alert and oriented. HEENT: Head is normocephalic, atraumatic NECK: Supple. LUNGS: Clear to auscultation. HEART: RRR, S1, S2 present. Peripheral pulses intact ABDOMEN: Soft, nontender. Positive bowel sounds. EXTREMITIES: Without any cyanosis. left leg mild swelling, with tenderness NEUROLOGIC: Normal speech, normal tone PSYCHIATRIC: Normal affect, normal mood. SKIN: No ulcerations Vitals Vitals Vital Signs Date Time Temp Pulse Resp B/P Pulse Ox O2 Delivery O2 Flow Rate FiO2 12/16/16 12:53 100 Room Air 12/16/16 11:21 98.0 103 18 120/71 98.0 Labs Labs Laboratory Tests Test 12/15/16 20:19 12/16/16 03:05 White Blood Count 5.1x10^3/uL (4.0-11.0) 5.3x10^3/uL (4.0-11.0) Red Blood Count 3.68x10^6/uL (3.50-5.40) 3.68x10^6/uL (3.50-5.40) Hemoglobin 10.2g/dL (12.0-15.5) 10.2g/dL (12.0-15.5) Hematocrit 32.1% (36.0-47.0) 32.1% (36.0-47.0) Mean Corpuscular Volume 87fL (79-100) 87fL (79-100) Mean Corpuscular Hemoglobin 28pg (25-35) 28pg (25-35) Mean Corpuscular Hemoglobin Concent 32g/dL (31-37) 32g/dL (31-37) Red Cell Distribution Width 17.8% (11.5-14.5) 17.9% (11.5-14.5) Platelet Count 200x10^3/uL (140-400) 173x10^3/uL (140-400) Neutrophils (%) (Auto) 53% (31-73) 29% (31-73) Lymphocytes (%) (Auto) 29% (24-48) 55% (24-48) Monocytes (%) (Auto) 13% (0-9) 10% (0-9) Eosinophils (%) (Auto) 4% (0-3) 5% (0-3) Basophils (%) (Auto) 1% (0-3) 1% (0-3) Neutrophils # (Auto) 2.7x10^3uL (1.8-7.7) 1.5x10^3uL (1.8-7.7) Lymphocytes # (Auto) 1.5x10^3/uL (1.0-4.8) 2.9x10^3/uL (1.0-4.8) Monocytes # (Auto) 0.7x10^3/uL (0.0-1.1) 0.5x10^3/uL (0.0-1.1) Eosinophils # (Auto) 0.2x10^3/uL (0.0-0.7) 0.3x10^3/uL (0.0-0.7) Basophils # (Auto) 0.0x10^3/uL (0.0-0.2) 0.0x10^3/uL (0.0-0.2) Prothrombin Time 15.3SEC (11.7-14.0) Prothromb Time International Ratio 1.3 (0.8-1.1) Activated Partial Thromboplast Time 34SEC (24-38) Sodium Level 142mmol/L (136-145) 144mmol/L (136-145) Potassium Level 3.4mmol/L (3.5-5.1) 3.9mmol/L (3.5-5.1) Chloride Level 107mmol/L (98-107) 109mmol/L (98-107) Carbon Dioxide Level 24mmol/L (21-32) 24mmol/L (21-32) Anion Gap 11 (6-14) 11 (6-14) Blood Urea Nitrogen 14mg/dL (7-20) 13mg/dL (7-20) Creatinine 0.9mg/dL (0.6-1.0) 0.7mg/dL (0.6-1.0) Estimated GFR (Cockcroft-Gault) 90.2 120.6 BUN/Creatinine Ratio 16 (6-20) Glucose Level 99mg/dL (70-99) 94mg/dL (70-99) Calcium Level 8.9mg/dL (8.5-10.1) 8.4mg/dL (8.5-10.1) Total Bilirubin 0.2mg/dL (0.2-1.0) Aspartate Amino Transf (AST/SGOT) 19U/L (15-37) Alanine Aminotransferase (ALT/SGPT) 15U/L (14-59) Alkaline Phosphatase 75U/L (46-116) Total Protein 8.1g/dL (6.4-8.2) Albumin 3.3g/dL (3.4-5.0) Albumin/Globulin Ratio 0.7 (1.0-1.7) Serum Test, Qualitative Negative (NEG) Heparin Anti-Xa Act, Unfractionated 0.80IU/mL (0.30-0.70) Laboratory Tests Test 12/15/16 20:19 12/16/16 03:05 White Blood Count 5.1x10^3/uL (4.0-11.0) 5.3x10^3/uL (4.0-11.0) Red Blood Count 3.68x10^6/uL (3.50-5.40) 3.68x10^6/uL (3.50-5.40) Hemoglobin 10.2g/dL (12.0-15.5) 10.2g/dL (12.0-15.5) Hematocrit 32.1% (36.0-47.0) 32.1% (36.0-47.0) Mean Corpuscular Volume 87fL (79-100) 87fL (79-100) Mean Corpuscular Hemoglobin 28pg (25-35) 28pg (25-35) Mean Corpuscular Hemoglobin Concent 32g/dL (31-37) 32g/dL (31-37) Red Cell Distribution Width 17.8% (11.5-14.5) 17.9% (11.5-14.5) Platelet Count 200x10^3/uL (140-400) 173x10^3/uL (140-400) Neutrophils (%) (Auto) 53% (31-73) 29% (31-73) Lymphocytes (%) (Auto) 29% (24-48) 55% (24-48) Monocytes (%) (Auto) 13% (0-9) 10% (0-9) Eosinophils (%) (Auto) 4% (0-3) 5% (0-3) Basophils (%) (Auto) 1% (0-3) 1% (0-3) Neutrophils # (Auto) 2.7x10^3uL (1.8-7.7) 1.5x10^3uL (1.8-7.7) Lymphocytes # (Auto) 1.5x10^3/uL (1.0-4.8) 2.9x10^3/uL (1.0-4.8) Monocytes # (Auto) 0.7x10^3/uL (0.0-1.1) 0.5x10^3/uL (0.0-1.1) Eosinophils # (Auto) 0.2x10^3/uL (0.0-0.7) 0.3x10^3/uL (0.0-0.7) Basophils # (Auto) 0.0x10^3/uL (0.0-0.2) 0.0x10^3/uL (0.0-0.2) Prothrombin Time 15.3SEC (11.7-14.0) Prothromb Time International Ratio 1.3 (0.8-1.1) Activated Partial Thromboplast Time 34SEC (24-38) Sodium Level 142mmol/L (136-145) 144mmol/L (136-145) Potassium Level 3.4mmol/L (3.5-5.1) 3.9mmol/L (3.5-5.1) Chloride Level 107mmol/L (98-107) 109mmol/L (98-107) Carbon Dioxide Level 24mmol/L (21-32) 24mmol/L (21-32) Anion Gap 11 (6-14) 11 (6-14) Blood Urea Nitrogen 14mg/dL (7-20) 13mg/dL (7-20) Creatinine 0.9mg/dL (0.6-1.0) 0.7mg/dL (0.6-1.0) Estimated GFR (Cockcroft-Gault) 90.2 120.6 BUN/Creatinine Ratio 16 (6-20) Glucose Level 99mg/dL (70-99) 94mg/dL (70-99) Calcium Level 8.9mg/dL (8.5-10.1) 8.4mg/dL (8.5-10.1) Total Bilirubin 0.2mg/dL (0.2-1.0) Aspartate Amino Transf (AST/SGOT) 19U/L (15-37) Alanine Aminotransferase (ALT/SGPT) 15U/L (14-59) Alkaline Phosphatase 75U/L (46-116) Total Protein 8.1g/dL (6.4-8.2) Albumin 3.3g/dL (3.4-5.0) Albumin/Globulin Ratio 0.7 (1.0-1.7) Serum Test, Qualitative Negative (NEG) Heparin Anti-Xa Act, Unfractionated 0.80IU/mL (0.30-0.70) VTE Prophylaxis Ordered VTE Prophylaxis Devices: Yes VTE Pharmacological Prophylaxi: No Assessment/Plan Assessment/Plan 1. 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 h/o protein S deficiency and SLE 3. H/O UC 4. CHRONIC constipation 5. bipolar 6. chronic anemia 7. h/o seizure 8. IVC filter 9. h/o left leg stents 10, drug abuse with marijuana plan: 1. dc heparin drip, start eliquis 2. onco, GI consulted 2. on prednisone bid as per GI cont home pysch meds pain control dc tmr add stool softner HIRAM THACKER MD Dec 16, 2016 13:29
[2016-12-16] MEDS ORDERED: ANTI-COAG MONITOR BY PHARMACY. MC PRN (13:45)
[2016-12-16] MEDS: APIXABAN 5 MG TABLET. PO SCH ×2 (14:23→21:50)
[2016-12-16] MEDS: PREDNISONE 20 MG TABLET PO SCH ×2 (14:23→21:49)
[2016-12-16] MEDS: LEVETIRACETAM 500 MG TABLET. PO SCH ×2 (14:23→21:50)
[2016-12-16 14:50] VITALS: BP 93/53
[2016-12-16] MEDS: MESALAMINE ER 250 MG CAPSULE.ER PO SCH ×2 (18:03→21:52)
[2016-12-16 19:11] VITALS: BP 115/62
[2016-12-16] MEDS ORDERED: HYDROMORPHONE 2 MG/ML VIAL. IV PRN (20:30)
[2016-12-16] MEDS ORDERED: OLANZAPINE 5 MG TABLET. PO SCH (21:00)
[2016-12-16] MEDS ORDERED: FAMOTIDINE 20 MG TABLET. PO SCH (21:00)
[2016-12-16 23:04] VITALS: BP 115/63
--- NOTE | 2016-12-16 23:58 | CONS ---
DATE OF CONSULTATION: 12/16/2016 REASON FOR CONSULTATION: DVTs and ulcerative colitis. HISTORY OF PRESENT ILLNESS: A 26-year-old -[place] female with past medical history significant for UC, lupus, protein S deficiency with recurrent DVTs, seizure disorder, bipolar, anemia, who is admitted to [facility] with increasing shortness of breath and DVTs. Consultation is requested for further management with 10-20 loose, nonbloody stools each day. The patient states that she was on sulfasalazine and low dose prednisone while in the local ____, which did not control her symptoms. There are no recent antibiotics, exotic travel or additional constitutional complaints. PAST MEDICAL HISTORY: Lupus, protein S deficiency, angioplasty, seizure, SLE, stroke, depression and bipolar disorder. ALLERGIES: WARFARIN. MEDICATIONS: Include Zyprexa, Dilaudid, Topamax, Ultram, Klonopin, Desyrel, Lortab, Wellbutrin. FAMILY AND SOCIAL HISTORY: Does not drink or smoke. Family history is noncontributory. REVIEW OF SYSTEMS: Per records. PHYSICAL EXAMINATION: GENERAL: Reveals a thin -[place] female. VITAL SIGNS: Temperature is 98, pulse 103, respirations 18, blood pressure is 120/71. HEENT: Normocephalic, atraumatic head. Pupils and extraocular muscles not tested. Sclerae anicteric. NECK: Supple. LUNGS: Clear. CARDIOVASCULAR: Reveals S1, S2 without S3, S4 or appreciable murmur. ABDOMEN: Reveals soft abdomen, normal bowel sounds, without appreciable hepatosplenomegaly. EXTREMITIES: Reveals pedal edema bilaterally. LABORATORY DATA: Hemoglobin is 10.2, hematocrit 32.1, white count 5.3, platelet count 173,000. Sodium 142, potassium 3.4, chloride 107, BUN 14, creatinine 0.9, glucose is 99, calcium is 8.9, total bilirubin 0.2, AST of 19, ALT of 15, alkaline phosphatase 75, total protein 8.1, albumin 3.3. INR is 1.3. IMPRESSION: Ulcerative colitis with recent flare. Recommend the patient resume steroids, mesalamine product. If this is unhelpful, interval colonoscopy prior to Imuran or biologic therapy may be warranted. I would like to thank Dr. Hussein for allowing us to consult and participate in the patient's care. MAYKEL QUINTANILLA MD DR: Armida JOB#: [id number] / [id number]
[2016-12-17] MEDS: HYDROCODONE/APAP 7.5/325MG TABLET. PO PRN (02:59)
[2016-12-17 03:00] VITALS: BP 126/79
[2016-12-17 05:01] LABS: BASO % 0 % (0-3); EOS % 0 % (0-3); HEMATOCRIT 32.6 % (36.0-47.0); HEMOGLOBIN 10.4 g/dL (12.0-15.5); LYMPH # 0.6 x10^3/uL (1.0-4.8); LYMPH % 11 % (24-48); MEAN CORPUSCULAR HEMOGLOBIN 28 pg (25-35); MEAN CORPUSCULAR HGB CONC 32 g/dL (31-37); MEAN CORPUSCULAR VOLUME 86 fL (79-100); MONO % 3 % (0-9); NEUT % 85 % (31-73); PLATELET COUNT 199 x10^3/uL (140-400); RED BLOOD COUNT 3.77 x10^6/uL (3.50-5.40); RED CELL DISTRIBUTION WIDTH 18.1 % (11.5-14.5); WHITE BLOOD COUNT 5.8 x10^3/uL (4.0-11.0)
[2016-12-17 05:29] LABS: CALCIUM 8.9 mg/dL (8.5-10.1); CREATININE 0.7 mg/dL (0.6-1.0); GFR 120.6; POTASSIUM 3.9 mmol/L (3.5-5.1)
[2016-12-17 07:00] VITALS: BP 126/69
[2016-12-17] MEDS ORDERED: AMPHETAMINE PO SCH (09:00)
[2016-12-17] MEDS ORDERED: DEXTROAMPHETAMINE PO SCH (09:00)
[2016-12-17] MEDS: buPROPion XL 150 MG TAB.ER.24H. PO SCH (09:19)
[2016-12-17] MEDS: DOCUSATE SODIUM 100 MG CAPSULE. PO SCH (09:19)
[2016-12-17] MEDS: LEVETIRACETAM 500 MG TABLET. PO SCH (09:20)
[2016-12-17] MEDS: CLONAZEPAM 1 MG TABLET. PO SCH (09:20)
[2016-12-17] MEDS: traZODone 100 MG TABLET. PO SCH (09:20)
[2016-12-17] MEDS: SENNOSIDES/DOCUSATE 8.6/50MG TABLET. PO SCH (09:20)
[2016-12-17] MEDS: PREDNISONE 20 MG TABLET PO SCH (09:20)
[2016-12-17] MEDS: TOPIRAMATE 25 MG TABLET. PO SCH (09:20)
[2016-12-17] MEDS: APIXABAN 5 MG TABLET. PO SCH (09:20)
[2016-12-17] MEDS: MESALAMINE ER 250 MG CAPSULE.ER PO SCH (09:21)
[2016-12-17] MEDS ORDERED: HYDR-2762 PO (10:11)
[2016-12-17] MEDS ORDERED: MESA250C PO (10:11)
[2016-12-17] MEDS ORDERED: CLON2TAB2 PO (10:11)
[2016-12-17] MEDS ORDERED: PRED20TA PO (10:11)
[2016-12-17] MEDS ORDERED: APIX5TAB PO (10:11)
[2016-12-17] MEDS ORDERED: DOCU100C5 PO (10:11)
[2016-12-17] MEDS ORDERED: TRAM50TA PO (10:11)
[2016-12-17] MEDS ORDERED: SENN-22 PO (10:11)
--- NOTE | 2016-12-17 13:09 | PDOC3 ---
Discharge Summary [facility] Date of Admission: Dec 15, 2016 Discharge Date: Dec 17, 2016 Admitting Diagnosis 1. 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 h/o protein S deficiency and SLE 3. H/O UC 4. CHRONIC constipation 5. bipolar 6. chronic anemia 7. h/o seizure 8. IVC filter 9. h/o left leg stents 10, drug abuse with marijuana Problems: Final Diagnosis CONSULTS onco gi Brief Hospital Course Patient is a 26 year old female who presents with complaint of left lower extremity pain and swelling for a few days. Pt has history of protein S deficiency and systemic lupus erythematosus, h/o DVT 3 TImes before. The patient has an IVC filter in place, on levonox bid currently, has h/o UC, with GIB. Recently not on any meds for UC, chronic constipation, last BM was 1 week ago, not taking stool softner. The patient was originally recommended to be admitted on 12/14 for treatment however she declined at that time. Patient states that due to worsening pain and worsening shortness of breath she came to the emergency department today and thinks that she does need to be admitted. Patient has not had any fevers. Patient rates pain currently is 10 out of 10. no sob, or chest pain. US left leg + DVT, PE neg from VQ scan. Pt was on heparin drip for 1d, switch to eliquis bid. gi consulted, add prednisone and mesalamine. dc home with eliquis, 20 pills of lortab and tramadol, and stool softner. pt still has some left leg pain with mild swelling foot. Grandma refused dc. dc time 35min GEN.: No apparent distress. Alert and oriented. HEENT: Head is normocephalic, atraumatic NECK: Supple. LUNGS: Clear to auscultation. HEART: RRR, S1, S2 present. Peripheral pulses intact ABDOMEN: Soft, nontender. Positive bowel sounds. EXTREMITIES: Without any cyanosis. left leg/foot mild swelling, with tenderness NEUROLOGIC: Normal speech, normal tone PSYCHIATRIC: Normal affect, normal mood. SKIN: No ulcerations Patient History: Unknown Problems: Disposition home CONDITION AT DISCHARGE: Improved Diet regular Scheduled Apixaban (Eliquis) 10 MG PO BID Bupropion Hcl (Wellbutrin Xl) 1 TAB PO [id number] (Reported) Clonazepam (Clonazepam) 1 TAB PO BID Dextroamphetamine/Amphetamine (Adderall Xr 20 Mg Capsule) 40 MG PO DAILY ( Reported) Docusate Sodium (Docusate Sodium) 100 MG PO BID Levetiracetam (Keppra) 3 TAB PO TID (Reported) Mesalamine (Pentasa) 1,000 MG PO [id number] Olanzapine (Zyprexa) 1 TAB PO QHS (Reported) Prednisone (Prednisone) 20 MG PO BID Sennosides/Docusate Sodium (Senna-Time S Tablet) 1 TAB PO BID Topiramate (Topamax) 1 TAB PO BID (Reported) Trazodone Hcl (Trazodone Hcl) 1 TAB PO BID (Reported) Scheduled PRN Hydrocodone Bit/Acetaminophen (Hydrocodone-Apap 7.5-325 ) 1 TAB PO TID PRN PRN PAIN Tramadol Hcl (Tramadol Hcl) 100 MG PO PRN Q6HRS PRN PRN PAIN Discontinued Medications Bupropion Hcl (Bupropion Xl) 150 MG PO DAILY (Reported) Discontinued Reason: PER PT Bupropion Hcl (Bupropion Hcl Sr) 150 MG PO DAILY Discontinued Reason: PER PT Clonazepam (Clonazepam) 1 TAB PO BID (Reported) Discontinued Reason: PER PT Cran/C/B.coag/Fos/L.acid/L.rha (Probiotic Plus & Cranberry Cap) 1 EACH PO ( Reported) Discontinued Reason: PRT PT Desvenlafaxine Succinate (Pristiq Er) 100 MG PO DAILY (Reported) Discontinued Reason: PRT PT Dextroamphetamine/Amphetamine (Adderall 30 Mg Tablet) 40 MG PO DAILY (Reported) Discontinued Reason: PER PT Diphenhydramine Hcl (Benadryl) 25 MG PO PRN Q12HRS PRN PRN CONGESTION (Reported ) Discontinued Reason: PER PT Enoxaparin Sodium (Lovenox) 60 MG SQ BID (Reported) Discontinued Reason: PER PT Fondaparinux Sodium (Arixtra) 7.5 MG SQ DAILY Discontinued Reason: PER PT Hydrocodone/Apap 5-325 ([place] 5-325 Tablet) 1 TAB PO PRN Q4-6HRS PRN PRN PAIN Discontinued Reason: PER PT Hydrocodone/Apap 5-325 ([place] 5-325 Tablet) 1-2 TAB PO Q6HRS PRN PRN PAIN Discontinued Reason: PER PT Ibuprofen (Ibuprofen) 800 MG PO PRN PRN PRN MODERATE PAIN (Reported) Discontinued Reason: PER PT Levetiracetam (Keppra) 1,000 MG PO TID (Reported) Discontinued Reason: PE Levetiracetam (Keppra) 1,000 MG PO TID Discontinued Reason: PER Mesalamine (Asacol Hd) 800 MG PO TID (Reported) Discontinued Reason: PER Nitrofurantoin Monohyd/M-Cryst (Macrobid 100 Mg Capsule) 1 CAP PO BID Discontinued Reason: PER PT Olanzapine (Zyprexa) 1 TAB PO QHS (Reported) Discontinued Reason: PER PT Pantoprazole Sodium (Protonix) 40 MG PO DAILY (Reported) Discontinued Reason: PER PT Paroxetine Hcl (Paxil) 1 TAB PO DAILY (Reported) Discontinued Reason: PER PT Prazosin Hcl (Prazosin Hcl) 1 MG PO QHS (Reported) Discontinued Reason: PET Prednisone (Prednisone) 10 MG PO DAILY (Reported) Discontinued Reason: PER PT Topiramate (Topamax) 1 TAB PO BID (Reported) Discontinued Reason: PER PT Topiramate (Topamax) 1 TAB PO BID Discontinued Reason: PER PT Tramadol Hcl (Tramadol Hcl) 50 MG PO Q6HRS (Reported) Discontinued Reason: PER P Tramadol Hcl (Tramadol Hcl) 1 TAB PO PRN Q6HRS PRN PRN PAIN Discontinued Reason: PER PT Trazodone Hcl (Trazodone Hcl) 50 MG PO HS (Reported) Discontinued Reason: PER PT Venlafaxine Hcl (Venlafaxine Hcl) 75 MG PO QHS (Reported) Discontinued Reason: PER PT Follow Up pcp in 2 weeks HIRAM THACKER MD Dec 17, 2016 13:09
== END 2016-12-17 12:00 | disposition home or self-care (01) | DRG 300 ==
LOC: ER 19:40 → 2 SOUTH 21:43
PROVIDERS: ADMIT Internal Medicine Hematology & Oncology; ATTEND Internal Medicine Hematology & Oncology
DX: I82.402 Acute embolism and thrombosis of unspecified deep veins of left lower extremity (principal); D68.59 Other primary thrombophilia; K51.90 Ulcerative colitis, unspecified, without complications; D64.9 Anemia, unspecified; F20.9 Schizophrenia, unspecified; G40.909 Epilepsy, unspecified, not intractable, without status epilepticus; K25.9 Gastric ulcer, unspecified as acute or chronic, without hemorrhage or perforation; M32.9 Systemic lupus erythematosus, unspecified; F12.20 Cannabis dependence, uncomplicated; F32.9 Major depressive disorder, single episode, unspecified; G43.909 Migraine, unspecified, not intractable, without status migrainosus; Z88.8 Allergy status to other drugs, medicaments and biological substances; Z86.73 Personal history of transient ischemic attack (TIA), and cerebral infarction without residual deficits; Z87.11 Personal history of peptic ulcer disease; F12.10 Cannabis abuse, uncomplicated; F41.9 Anxiety disorder, unspecified; K59.09 Other constipation
CPT/HCPCS: 36415; 71010; 78582; 80048; 80053; 84703; 85027; 85520; 85610; 85730; 93005; 96361; 96374; 96375; A9540; A9558; J1170; J2405; J7030; J7512; 99285-25

== ENCOUNTER 2017-01-20 19:23 | Emergency (ER) | payer OTHER ==
[~2017-01-20] VITALS: Ht 185.4 cm; Wt 71.7 kg
[~2017-01-20 19:23] MED LIST changes: +APIX5TAB PO; +BUPR150T15 PO; +CLON2TAB2 PO; +DEXT20CA7 PO; +DOCU100C5 PO; +HYDR-2762 PO; +MESA250C PO; +PRED20TA PO; +SENN-22 PO; +TRAZ100T12 PO; -WARF1TAB; +WARF1TAB74
[2017-01-20 19:48] VITALS: BP 124/73
--- NOTE | 2017-01-20 20:08 | PHYS DOC ---
Past Medical History Past Medical History: Anemia, Bipolar, Depression, Migraines, Seizure, Stroke, Other Additional Past Medical Histor: Ulcerative colitis, Lupus & Protein S deficiency causing frequent DVTs Past Surgical History: Angioplasty, Other Additional Past Surgical Histo: Filter & x4 stents LEFT LEG, D&C Alcohol Use: None Drug Use: Marijuana Adult General Chief Complaint Chief Complaint: HEADACHE HPI HPI Patient is a 26 year old female with chronic intermittent migraines and body pain who presents seeking tramadol because she ran out because she missed her appointment and has next appointment next week. She wants multiple pain medications. She still has other medications. She denies dyspnea, chest pain, cough, abdominal pain, nausea or vomiting, fever or chills, vision changes, numbness, tingling, weakness, leg pain or swelling. Review of Systems Review of Systems Constitutional: Denies fever or chills [] Eyes: Denies change in visual acuity, redness, or eye pain [] HENT: Denies nasal congestion or sore throat [] Respiratory: Denies cough or shortness of breath [] Cardiovascular: No additional information not addressed in HPI [] GI: Denies abdominal pain, nausea, vomiting, bloody stools or diarrhea [] : Denies dysuria or hematuria [] Musculoskeletal: Denies back pain [] Integument: Denies rash or skin lesions [] Neurologic: Denies focal weakness or sensory changes [] Endocrine: Denies polyuria or polydipsia [] Current Medications Current Medications Current Medications Medications (Trade) Dose Ordered Sig/Cyndi Start Time Stop Time Status Last Admin Dose Admin Tramadol HCl (Ultram) 100 mg 1X ONCE 01/20/17 20:15 01/20/17 20:16 DC 01/20/17 20:17 100 MG Allergies Allergies Allergies Coded Allergies Type Severity Reaction Last Updated Verified prochlorperazine Allergy Severe DYSTONIC REACTION 03/22/16 Yes warfarin Allergy Intermediate "AGGRAVATES ULCERS IN STOMACH" 03/22/16 Yes Physical Exam Physical Exam Constitutional: Well developed, well nourished, no acute distress, non-toxic appearance. [] HENT: Normocephalic, atraumatic, bilateral external ears normal, oropharynx moist, nose normal. [] Eyes: PERRLA, EOMI. [] Neck: Normal range of motion, supple. [] Cardiovascular:Heart rate regular rhythm [] Lungs & Thorax: Bilateral breath sounds clear to auscultation [] Abdomen: Bowel sounds normal, soft, no tenderness. [] Skin: Warm, dry, no erythema, no rash. [] Back: Normal range of motion. [] Extremities: No tenderness, ROM intact, no edema. [] Neurologic: Alert and oriented X 3, normal motor function, normal sensory function, no focal deficits noted, cranial nerves II through XII intact. [] Psychologic: Affect normal, judgement normal, mood normal. [] Current Patient Data Vital Signs Vital Signs Date Time Temp Pulse Resp B/P (MAP) Pulse Ox O2 Delivery O2 Flow Rate FiO2 01/20/17 20:17 20 01/20/17 19:48 98.1 85 124/73 (90) 98 Room Air 98.1 Lab Values Laboratory Tests Test 01/20/17 18:52 POC Urine HCG, Qualitative Hcg negative (Negative) Course & Med Decision Making Course & Med Decision Making Discussed she must see her primary care doctor for refills of controlled substances. Offered tramadol 1 here. Offered IV and IM treatment of headache with nonnarcotic pain medication, but she declined and stated she only wanted tramadol or narcotics. Return precautions given. She understands plan. Dragon Disclaimer Dragon Disclaimer This electronic medical record was generated, in whole or in part, using a voice recognition dictation system. Departure Departure Impression: Primary Impression: Migraine headache Additional Impression: Intractable pain Disposition: 01 HOME, SELF-CARE Condition: STABLE Referrals: MADONNA BOATENG MD (PCP) Patient Instructions: Recurrent Migraine Headache, [id number] Additional Instructions: Follow-up with your primary care doctor for further pain management. Return for any concerns. Problem Qualifiers Primary Impression: Migraine headache Migraine type: unspecified Status migrainosus presence: without status migrainosus Intractability: not intractable Qualified Codes: G43.909 - Migraine, unspecified, not intractable, without status migrainosus Oleg TEJADA MD January 20, 2017 20:08
[2017-01-20] MEDS ORDERED: traMADol 50 MG TABLET PO ONE (20:15)
== END 2017-01-20 20:18 | disposition home or self-care (01) ==
LOC: ER 19:23
DX: G43.909 Migraine, unspecified, not intractable, without status migrainosus (principal); M32.9 Systemic lupus erythematosus, unspecified; F31.9 Bipolar disorder, unspecified; F12.10 Cannabis abuse, uncomplicated; Z86.73 Personal history of transient ischemic attack (TIA), and cerebral infarction without residual deficits; Z88.8 Allergy status to other drugs, medicaments and biological substances; Z95.5 Presence of coronary angioplasty implant and graft
CPT/HCPCS: 81025; 99282

== ENCOUNTER 2017-04-26 18:26 | Emergency (ER) | payer OTHER ==
[~2017-04-26] VITALS: Ht 185.4 cm; Wt 75.7 kg
[~2017-04-26 18:26] MED LIST changes: +DOCU100C28 PO; -DOCU100C5 PO; +IBUP800T19 PO; -IBUP800T2 PO; -PARO20TA55 PO; +PARO20TA99 PO
[2017-04-26] MEDS ORDERED: ONDANSETRON PF 4 MG/2 ML VIAL. IV ONE (18:45)
[2017-04-26] MEDS ORDERED: HYDROmorphone 2 MG/ML VIAL IV ONE ×2 (18:45→19:45)
[2017-04-26] MEDS ORDERED: IV NORMAL SALINE 500ML BAG 500 ML IV ONE (18:45)
--- NOTE | 2017-04-26 18:47 | PHYS DOC ---
Past Medical History Past Medical History: Anemia, Bipolar, Depression, Migraines, Seizure, Stroke, Other Additional Past Medical Histor: Ulcerative colitis, Lupus & Protein S deficiency causing frequent DVTs Past Surgical History: Angioplasty, Other Additional Past Surgical Histo: Filter & x4 stents LEFT LEG, D&C Alcohol Use: None Drug Use: Marijuana Adult General Chief Complaint Chief Complaint: body pain from lupus HPI HPI Patient is a 26 year old female who presents with otherwise body pain consistent with flareup of her lupus 1 day; denies significant chest pain/ shortness of breath, nausea, vomiting/ diarrhea or abdominal pain. Takes subcutaneous Lovenox daily due to prior DVT and pulmonary embolism. Has an IVC filter. Denies kidney failure. Reports history of seizure disorder and noncompliance with her seizure meds. Review of Systems Review of Systems Constitutional: Denies fever or chills [] Eyes: Denies change in visual acuity, redness, or eye pain [] HENT: Denies nasal congestion or sore throat [] Respiratory: Denies cough or shortness of breath [] Cardiovascular: No additional information not addressed in HPI [] GI: Denies abdominal pain, nausea, vomiting, bloody stools or diarrhea [] : Denies dysuria or hematuria [] Musculoskeletal: Denies back pain or joint pain [] Integument: Denies rash or skin lesions [] Neurologic: Denies headache, focal weakness or sensory changes [] Endocrine: Denies polyuria or polydipsia [] Current Medications Current Medications Current Medications Medications (Trade) Dose Ordered Sig/Cyndi Start Time Stop Time Status Last Admin Dose Admin Hydromorphone HCl (Dilaudid) 1 mg 1X ONCE 04/26/17 19:45 04/26/17 20:04 DC 04/26/17 19:50 1 MG Ondansetron HCl (Zofran) 4 mg 1X ONCE 04/26/17 18:45 04/26/17 18:46 DC 04/26/17 19:09 4 MG Sodium Chloride 500 ml @ 500 mls/hr 1X ONCE 04/26/17 18:45 04/26/17 19:44 DC 04/26/17 19:09 500 MLS/HR Allergies Allergies Allergies Coded Allergies Type Severity Reaction Last Updated Verified prochlorperazine Allergy Severe DYSTONIC REACTION 03/22/16 Yes warfarin Allergy Intermediate "AGGRAVATES ULCERS IN STOMACH" 03/22/16 Yes Physical Exam Physical Exam Constitutional: Well developed, well nourished, no acute distress, non-toxic appearance. [] HENT: Normocephalic, atraumatic, bilateral external ears normal, oropharynx moist, no oral exudates, nose normal. [] Eyes: PERRLA, EOMI, conjunctiva normal, no discharge. [] Neck: Normal range of motion, no tenderness, supple, no stridor. [] Cardiovascular:Heart rate regular rhythm, no murmur [] Lungs & Thorax: Bilateral breath sounds clear to auscultation [] Abdomen: Bowel sounds normal, soft, no tenderness, no masses, no pulsatile masses. [] Skin: Warm, dry, no erythema, no rash. [] Back: No tenderness, no CVA tenderness. [] Extremities: No tenderness, no cyanosis, no clubbing, ROM intact, no edema. [] Neurologic: Alert and oriented X 3, normal motor function, normal sensory function, no focal deficits noted. [] Psychologic: Affect normal, judgement normal, mood normal. [] Current Patient Data Vital Signs Vital Signs Date Time Temp Pulse Resp B/P (MAP) Pulse Ox O2 Delivery O2 Flow Rate FiO2 04/26/17 20:08 56 115/67 (83) 100 Room Air 04/26/17 18:30 97.7 12 97.7 Lab Values Laboratory Tests Test 04/26/17 18:34 04/26/17 19:20 POC Urine HCG, Qualitative Hcg negative (Negative) White Blood Count 5.9 x10^3/uL (4.0-11.0) Red Blood Count 3.92 x10^6/uL (3.50-5.40) Hemoglobin 11.7 g/dL (12.0-15.5) L Hematocrit 35.3 % (36.0-47.0) L Mean Corpuscular Volume 90 fL (79-100) Mean Corpuscular Hemoglobin 30 pg (25-35) Mean Corpuscular Hemoglobin Concent 33 g/dL (31-37) Red Cell Distribution Width 13.4 % (11.5-14.5) Platelet Count 194 x10^3/uL (140-400) Neutrophils (%) (Auto) 44 % (31-73) Lymphocytes (%) (Auto) 44 % (24-48) Monocytes (%) (Auto) 9 % (0-9) Eosinophils (%) (Auto) 3 % (0-3) Basophils (%) (Auto) 1 % (0-3) Neutrophils # (Auto) 2.6 x10^3uL (1.8-7.7) Lymphocytes # (Auto) 2.6 x10^3/uL (1.0-4.8) Monocytes # (Auto) 0.5 x10^3/uL (0.0-1.1) Eosinophils # (Auto) 0.2 x10^3/uL (0.0-0.7) Basophils # (Auto) 0.0 x10^3/uL (0.0-0.2) Urine Collection Type Clean catch Urine Color Dk yellow Urine Clarity Clear Urine pH 6.0 Urine Specific [place] >=1.030 Urine Protein 30 mg/dL (NEG-TRACE) Urine Glucose (UA) Negative mg/dL (NEG) Urine Ketones (Stick) Trace mg/dL (NEG) Urine Blood Negative (NEG) Urine Nitrite Negative (NEG) Urine Bilirubin Small (NEG) Urine Urobilinogen Dipstick 1.0 mg/dL (0.2 mg/dL) Urine Leukocyte Esterase Moderate (NEG) Urine RBC 0 /HPF (0-2) Urine WBC 20-40 /HPF (0-4) Urine Squamous Epithelial Cells Few /LPF Urine Bacteria Few /HPF (0-FEW) Urine Hyaline Casts Few /HPF Urine Mucus Marked /LPF Sodium Level 142 mmol/L (136-145) Potassium Level 3.0 mmol/L (3.5-5.1) L Chloride Level 103 mmol/L (98-107) Carbon Dioxide Level 30 mmol/L (21-32) Anion Gap 9 (6-14) Blood Urea Nitrogen 11 mg/dL (7-20) Creatinine 0.8 mg/dL (0.6-1.0) Estimated GFR (Cockcroft-Gault) 103.3 BUN/Creatinine Ratio 14 (6-20) Glucose Level 83 mg/dL (70-99) Calcium Level 9.3 mg/dL (8.5-10.1) Total Bilirubin 0.2 mg/dL (0.2-1.0) Aspartate Amino Transferase (AST) 12 U/L (15-37) L Alanine Aminotransferase (ALT) 11 U/L (14-59) L Alkaline Phosphatase 88 U/L (46-116) Total Protein 8.5 g/dL (6.4-8.2) H Albumin 3.9 g/dL (3.4-5.0) Albumin/Globulin Ratio 0.8 (1.0-1.7) L Laboratory Tests 04/26/17 19:20 Laboratory Tests 04/26/17 19:20 EKG EKG EKG sinus rhythm rate of 57 no STEMI T-wave inversion in V1 and V2 consistent with persistent juvenile pattern QTC normal my interpretation [] Radiology/Procedures Radiology/Procedures [] Course & Med Decision Making Course & Med Decision Making Pertinent Labs and Imaging studies reviewed. (See chart for details) Plan is to check labs to exclude lupus nephritis/renal failure and to treat symptomatically with pain medications. Urine was positive for possible UTI we will treat accordingly with Keflex. Dragon Disclaimer Dragon Disclaimer This electronic medical record was generated, in whole or in part, using a voice recognition dictation system. Departure Departure Impression: Primary Impression: UTI (urinary tract infection) Additional Impression: Lupus (systemic lupus erythematosus) Disposition: 01 HOME, SELF-CARE Condition: IMPROVED Referrals: MADONNA BOATENG MD (PCP) Patient Instructions: Urinary Tract Infection, Ibhs-dx-Gcey Scripts Fluconazole (DIFLUCAN) 150 Mg Tablet 1 TAB PO ONCE, #1 TAB 1 Refill take after antibiotics are completed Prov: MIGUE DAS MD 04/26/17 Metronidazole (FLAGYL) 500 Mg Tablet 1 TAB PO BID, #14 TAB Prov: MIGUE DAS MD 04/26/17 Cephalexin (KEFLEX) 500 Mg Capsule 500 MG PO QID for 7 Days, #28 CAP Prov: MIGUE DAS MD 04/26/17 Problem Qualifiers MIGUE DAS MD Apr 26, 2017 18:47
[2017-04-26 19:44] LABS: BASO % 1 % (0-3); BILIRUBIN,URINE SMALL (NEG); EOS % 3 % (0-3); GLUCOSE,URINE NEGATIVE (NEG); HEMATOCRIT 35.3 % (36.0-47.0); HEMOGLOBIN 11.7 g/dL (12.0-15.5); LYMPH # 2.6 x10^3/uL (1.0-4.8); LYMPH % 44 % (24-48); MEAN CORPUSCULAR HEMOGLOBIN 30 pg (25-35); MEAN CORPUSCULAR HGB CONC 33 g/dL (31-37); MEAN CORPUSCULAR VOLUME 90 fL (79-100); MONO % 9 % (0-9); NEUT % 44 % (31-73); NITRITE,URINE NEGATIVE (NEG); PLATELET COUNT 194 x10^3/uL (140-400); PROTEIN,URINE 30 mg/dL (NEG-TRACE); RED BLOOD COUNT 3.92 x10^6/uL (3.50-5.40); RED CELL DISTRIBUTION WIDTH 13.4 % (11.5-14.5); WHITE BLOOD COUNT 5.9 x10^3/uL (4.0-11.0)
[2017-04-26 19:46] LABS: CALCIUM 9.3 mg/dL (8.5-10.1); CREATININE 0.8 mg/dL (0.6-1.0); GFR 103.3
[2017-04-26 19:52] LABS: ALBUMIN 3.9 g/dL (3.4-5.0); ALBUMIN/GLOBULIN RATIO 0.8 (1.0-1.7); TOTAL BILIRUBIN 0.2 mg/dL (0.2-1.0); TOTAL PROTEIN 8.5 g/dL (6.4-8.2)
[2017-04-26 20:08] VITALS: BP 115/67
[2017-04-26 20:09] LABS: BACTERIA,URINE FEW /HPF (0-FEW); RBC,URINE 0 /HPF (0-2); SQUAMOUS EPITHELIAL CELL,UR FEW /LPF; WBC,URINE 20-40 /HPF (0-4)
[2017-04-26] MEDS ORDERED: CEPH-264 PO (20:53)
[2017-04-26] MEDS ORDERED: METR500T PO (20:53)
[2017-04-26] MEDS ORDERED: FLUC150T PO (20:53)
--- NOTE | 2017-04-27 13:02 | EKG ---
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
== END 2017-04-26 21:17 | disposition home or self-care (01) ==
LOC: ER 18:26
DX: M32.9 Systemic lupus erythematosus, unspecified (principal); N39.0 Urinary tract infection, site not specified; G40.909 Epilepsy, unspecified, not intractable, without status epilepticus; F31.9 Bipolar disorder, unspecified; G43.909 Migraine, unspecified, not intractable, without status migrainosus; Z86.73 Personal history of transient ischemic attack (TIA), and cerebral infarction without residual deficits; Z86.718 Personal history of other venous thrombosis and embolism; Z86.711 Personal history of pulmonary embolism; Z91.19 Patient's noncompliance with other medical treatment and regimen; Z95.5 Presence of coronary angioplasty implant and graft; Z88.8 Allergy status to other drugs, medicaments and biological substances
CPT/HCPCS: 36415; 80053; 81001; 81025; 85025; 87086; 93005; 96361; 96374; 96375; 96376; 99285; J1170; J2405; J7040

== ENCOUNTER 2017-05-22 20:10 | Emergency (ER) | payer OTHER ==
[~2017-05-22] VITALS: Ht 185.4 cm; Wt 69.9 kg
[~2017-05-22 20:10] MED LIST changes: +CEPH-264 PO; +FLUC150T PO; +METR500T PO
--- NOTE | 2017-05-22 20:35 | PHYS DOC ---
Past Medical History Past Medical History: Anemia, Bipolar, Depression, Migraines, Seizure, Stroke, Other Additional Past Medical Histor: Ulcerative colitis, Lupus & Protein S deficiency causing frequent DVTs Past Surgical History: Angioplasty, Other Additional Past Surgical Histo: Filter & x4 stents LEFT LEG, D&C Alcohol Use: None Drug Use: Marijuana Adult General Chief Complaint Chief Complaint: PAIN CONTROL HPI HPI Patient is a 26 year old -[place] Citizen female with history of lupus, protein C nest deficiency, DVT, PE, currently on anticoagulation therapy, and CVA presents with early controlled pain for the past 3 days. Patient reports muscle aches and pains,, cough, fever about 101.3. No shortness breath, nausea, vomiting and sweats. No abdominal pain. History of irregular periods. No other acute symptoms or complaints. Review of Systems Review of Systems Review symptoms as per history of present illness. All other review symptoms are negative. Current Medications Current Medications Current Medications Medications (Trade) Dose Ordered Sig/Cyndi Start Time Stop Time Status Last Admin Dose Admin Fentanyl Citrate (Fentanyl 2ml Vial) 75 mcg 1X ONCE 05/22/17 20:45 05/22/17 20:46 Ondansetron HCl (Zofran) 4 mg 1X ONCE 05/22/17 20:45 05/22/17 20:46 Allergies Allergies Allergies Coded Allergies Type Severity Reaction Last Updated Verified prochlorperazine Allergy Severe DYSTONIC REACTION 03/22/16 Yes warfarin Allergy Intermediate "AGGRAVATES ULCERS IN STOMACH" 03/22/16 Yes Physical Exam Physical Exam Constitutional: Well developed, well nourished, discomfort secondary to pain. [] HENT: Normocephalic, atraumatic, bilateral external ears normal, oropharynx moist, no oral exudates, nose normal. [] Eyes: PERRLA, EOMI, conjunctiva normal, no discharge. [] Neck: Normal range of motion, no tenderness, supple, no stridor. [] Cardiovascular: Tachycardic.[] Lungs & Thorax: Bilateral breath sounds clear to auscultation [] Abdomen: Bowel sounds normal, soft. [] Skin: Warm, dry, no erythema, no rash. [] Back: No tenderness, no CVA tenderness. [] Extremities: No tenderness, no cyanosis, no clubbing, ROM intact, no edema. [] Neurologic: Alert and oriented X 3, normal motor function, normal sensory function, no focal deficits noted. [] Psychologic: Affect normal, [] Current Patient Data Vital Signs Vital Signs Date Time Temp Pulse Resp B/P (MAP) Pulse Ox O2 Delivery O2 Flow Rate FiO2 05/22/17 20:20 98.2 97 20 131/78 (95) 98 Room Air 98.2 EKG EKG [EKG:] Radiology/Procedures Radiology/Procedures [Chest x-ray:] Course & Med Decision Making Course & Med Decision Making Pertinent Labs and Imaging studies reviewed. (See chart for details) [Work up in progress. Care endorsed to oncoming [facility] at 2100. Thank you] Dragon Disclaimer Dragon Disclaimer This electronic medical record was generated, in whole or in part, using a voice recognition dictation system. Departure Departure Referrals: MADONNA BOATENG MD (PCP) ENRRIQUE GONZALEZ DO May 22, 2017 20:35
[2017-05-22 20:42] LABS: BILIRUBIN,URINE SMALL (NEG); GLUCOSE,URINE NEGATIVE (NEG); NITRITE,URINE NEGATIVE (NEG); PROTEIN,URINE 30 mg/dL (NEG-TRACE); UROBILINOGEN,URINE 0.2 mg/dL (0.2 mg/dL)
[2017-05-22] MEDS ORDERED: fentaNYL PF VIAL 100 MCG/2 ML VIAL IV ONE (20:45)
[2017-05-22] MEDS ORDERED: ONDANSETRON PF 4 MG/2 ML VIAL. IV ONE (20:45)
[2017-05-22 20:57] LABS: BACTERIA,URINE FEW /HPF (0-FEW); RBC,URINE OCC /HPF (0-2); SQUAMOUS EPITHELIAL CELL,UR FEW /LPF
[2017-05-22 21:52] LABS: CALCIUM 9.6 mg/dL (8.5-10.1); CREATININE 0.7 mg/dL (0.6-1.0); GFR 120.6; POTASSIUM 3.2 mmol/L (3.5-5.1)
[2017-05-22 21:56] LABS: NEG OBC SER NEG; POS OBC SER POS
[2017-05-22 21:57] LABS: ALBUMIN 4.1 g/dL (3.4-5.0); ALBUMIN/GLOBULIN RATIO 0.9 (1.0-1.7); TOTAL BILIRUBIN 0.2 mg/dL (0.2-1.0); TOTAL PROTEIN 8.6 g/dL (6.4-8.2)
[2017-05-22] MEDS ORDERED: methylPREDNISolone SOD SUCC PF 125 MG/2 ML VIAL. IV ONE (22:00)
[2017-05-22] MEDS ORDERED: IV NORMAL SALINE 1000ML BAG 1,000 ML IV ONE (22:00)
[2017-05-22] MEDS ORDERED: IPRATRPIUM/ALBUTEROL 0.5/2.5MG 3 ML NEBU. NEB ONE (22:00)
[2017-05-22] MEDS ORDERED: BENZONATATE 100 MG CAPSULE. PO ONE (22:00)
[2017-05-22 22:03] LABS: OBC FLU VALID
[2017-05-22] MEDS: HYDROmorphone 2 MG/ML VIAL IV/SQ PRN (22:09)
[2017-05-22 23:08] LABS: BASO % 1 % (0-3); EOS % 1 % (0-3); HEMATOCRIT 34.3 % (36.0-47.0); HEMOGLOBIN 11.1 g/dL (12.0-15.5); LYMPH # 1.7 x10^3/uL (1.0-4.8); LYMPH % 28 % (24-48); MEAN CORPUSCULAR HEMOGLOBIN 29 pg (25-35); MEAN CORPUSCULAR HGB CONC 32 g/dL (31-37); MEAN CORPUSCULAR VOLUME 91 fL (79-100); MONO % 8 % (0-9); NEUT % 63 % (31-73); PLATELET COUNT 181 x10^3/uL (140-400); RED BLOOD COUNT 3.79 x10^6/uL (3.50-5.40); RED CELL DISTRIBUTION WIDTH 13.3 % (11.5-14.5); WHITE BLOOD COUNT 6.2 x10^3/uL (4.0-11.0)
[2017-05-22] MEDS ORDERED: POTASSIUM CHLORIDE 20 MEQ/15 ML ORAL LIQUID. PEG ONE (23:45)
[2017-05-23] MEDS ORDERED: AZITHROMYCIN 250 MG TABLET. PO ONE
[2017-05-23] MEDS ORDERED: AZIT250T6 PO (00:05)
[2017-05-23] MEDS ORDERED: BENZ100C PO (00:05)
[2017-05-23] MEDS ORDERED: PROAIR HFA8.5 GM INH (00:05)
[2017-05-23] MEDS: HYDROmorphone 2 MG/ML VIAL IV/SQ PRN (00:06)
[2017-05-23 00:25] VITALS: BP 131/78
--- NOTE | 2017-05-23 07:37 | RAD ---
Indication shortness of air. Frontal and lateral views of the chest were obtained and are compared to an examination 12/15/2016. The heart, pulmonary vessels and mediastinum appear normal. The lungs are clear. There is no pleural fluid or pneumothorax. IMPRESSION: No acute finding in the chest
== END 2017-05-23 00:18 | disposition home or self-care (01) ==
LOC: ER 20:10
DX: R50.9 Fever, unspecified (principal); M79.1 Myalgia; J02.9 Acute pharyngitis, unspecified; F31.9 Bipolar disorder, unspecified; M32.9 Systemic lupus erythematosus, unspecified; Z86.73 Personal history of transient ischemic attack (TIA), and cerebral infarction without residual deficits; Z86.718 Personal history of other venous thrombosis and embolism; Z95.5 Presence of coronary angioplasty implant and graft; Z88.8 Allergy status to other drugs, medicaments and biological substances
CPT/HCPCS: 36415; 71020; 80053; 81001; 81025; 83690; 84703; 85025; 87040; 87086; 87804; 94640; 96361; 96374; 96375; 96376; 99285; J1170; J2405; J2930; J3010; J7030; J7620; Q0144

== ENCOUNTER 2017-06-12 13:56 | Emergency (ER) | payer OTHER ==
[~2017-06-12] VITALS: Ht 185.4 cm; Wt 67.1 kg
[~2017-06-12 13:56] MED LIST changes: +AZIT250T6 PO; +BENZ100C PO; +PROAIR HFA8.5 GM INH
[2017-06-12] MEDS ORDERED: ONDANSETRON PF 4 MG/2 ML VIAL. IV ONE (14:30)
[2017-06-12] MEDS ORDERED: IV NORMAL SALINE 1000ML BAG 1,000 ML IV ONE (14:30)
[2017-06-12] MEDS ORDERED: MORPHINE SULFATE 4 MG/ML DISP.SYRIN. IV ONE (14:30)
--- NOTE | 2017-06-12 14:41 | EKG ---
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
[2017-06-12 14:54] LABS: BASO % 1 % (0-3); EOS % 2 % (0-3); HEMATOCRIT 36.1 % (36.0-47.0); HEMOGLOBIN 12.1 g/dL (12.0-15.5); LYMPH % 53 % (24-48); MEAN CORPUSCULAR HEMOGLOBIN 30 pg (25-35); MEAN CORPUSCULAR HGB CONC 33 g/dL (31-37); MEAN CORPUSCULAR VOLUME 89 fL (79-100); MONO % 15 % (0-9); NEUT % 30 % (31-73); PLATELET COUNT 187 x10^3/uL (140-400); RED BLOOD COUNT 4.06 x10^6/uL (3.50-5.40); RED CELL DISTRIBUTION WIDTH 13.2 % (11.5-14.5); WHITE BLOOD COUNT 3.8 x10^3/uL (4.0-11.0)
--- NOTE | 2017-06-12 15:01 | RAD ---
Indication chest heaviness and shortness of breath. A single view of the chest was obtained and is compared to an examination 05/22/2017. The heart, pulmonary vessels and mediastinum appear normal. The lungs are clear of acute infiltrates. There is no pleural fluid or pneumothorax and there has not been a significant change compared to the previous exam. IMPRESSION: No acute or focal process. No significant change
[2017-06-12 15:20] LABS: CALCIUM 9.5 mg/dL (8.5-10.1); CREATININE 0.7 mg/dL (0.6-1.0); GFR 120.6
[2017-06-12 15:32] LABS: ALBUMIN 4.2 g/dL (3.4-5.0); ALBUMIN/GLOBULIN RATIO 0.9 (1.0-1.7); TOTAL BILIRUBIN 0.4 mg/dL (0.2-1.0); TOTAL PROTEIN 8.9 g/dL (6.4-8.2)
--- NOTE | 2017-06-12 16:31 | PHYS DOC ---
Past Medical History Past Medical History: Anemia, Bipolar, Depression, Migraines, Seizure, Stroke, Other Additional Past Medical Histor: Ulcerative colitis, Lupus & Protein S deficiency causing frequent DVTs Past Surgical History: Angioplasty, Other Additional Past Surgical Histo: Filter & 7 stents LEFT LEG, D&C x 3 Alcohol Use: None Drug Use: Marijuana Adult General Chief Complaint Chief Complaint: CHEST PAIN HPI HPI Patient is a 26 female with history of lupus, protein C&S deficiency, multiple DVT and PE anticoagulated on Lovenox twice daily with IVC filter in place who presents with arthralgias, palpitations dizziness and lightheaded this morning. Patient relates her symptoms to her arthritis from weather change. Patient reports heart rate in the 160s prior to ED arrival. Denies chest pain, chest tightness and shortness breath the ED. Patient's pulses less than 100. Patient reports feeling slightly better but continues to have diffuse arthralgias and body pain. No fever, chills, nausea, vomiting and sweats. No abdominal pain, urinary frequency urgency. No other acute symptoms or complaints.[] [] Review of Systems Review of Systems Review of symptoms as per history of present illness. All other review symptoms are negative. Current Medications Current Medications Current Medications Medications (Trade) Dose Ordered Sig/Cyndi Start Time Stop Time Status Last Admin Dose Admin Morphine Sulfate 4 mg 1X ONCE 06/12/17 14:30 06/12/17 14:31 DC 06/12/17 14:51 4 MG Ondansetron HCl (Zofran) 4 mg 1X ONCE 06/12/17 14:30 06/12/17 14:31 DC 06/12/17 14:49 4 MG Sodium Chloride 1,000 ml @ 1,000 mls/hr 1X ONCE 06/12/17 14:30 06/12/17 15:29 DC 06/12/17 14:48 1,000 MLS/HR Allergies Allergies Allergies Coded Allergies Type Severity Reaction Last Updated Verified prochlorperazine Allergy Severe DYSTONIC REACTION 06/12/17 Yes warfarin Allergy Intermediate "AGGRAVATES ULCERS IN STOMACH" 06/12/17 Yes Physical Exam Physical Exam Constitutional: Well developed, just, moderate discomfort secondary to pain, no acute distress. [] HENT: Normocephalic, atraumatic, bilateral external ears normal, oropharynx moist, no oral exudates, nose normal. [] Eyes: PERRLA, EOMI, conjunctiva normal, no discharge. [] Neck: Normal range of motion, no tenderness, supple, no stridor. [] Cardiovascular:Heart rate regular rhythm, no murmur. Negative Homans signs. [] Lungs & Thorax: Bilateral breath sounds clear to auscultation [] Abdomen: Bowel sounds normal, soft, no tenderness, no masses, no pulsatile masses. [] Skin: Warm, dry, no erythema, no rash. [] Back: No tenderness, no CVA tenderness. [] Extremities: No tenderness, no cyanosis, no clubbing, ROM intact, no edema. [] Neurologic: Alert and oriented X 3, normal motor function, normal sensory function, no focal deficits noted. [] Current Patient Data Vital Signs Vital Signs Date Time Temp Pulse Resp B/P (MAP) Pulse Ox O2 Delivery O2 Flow Rate FiO2 06/12/17 15:04 103 16 117/80 (92) 100 Room Air 06/12/17 14:17 98.8 98.8 Lab Values Laboratory Tests Test 06/12/17 14:40 White Blood Count 3.8 x10^3/uL (4.0-11.0) L Red Blood Count 4.06 x10^6/uL (3.50-5.40) Hemoglobin 12.1 g/dL (12.0-15.5) Hematocrit 36.1 % (36.0-47.0) Mean Corpuscular Volume 89 fL (79-100) Mean Corpuscular Hemoglobin 30 pg (25-35) Mean Corpuscular Hemoglobin Concent 33 g/dL (31-37) Red Cell Distribution Width 13.2 % (11.5-14.5) Platelet Count 187 x10^3/uL (140-400) Neutrophils (%) (Auto) 30 % (31-73) L Lymphocytes (%) (Auto) 53 % (24-48) H Monocytes (%) (Auto) 15 % (0-9) H Eosinophils (%) (Auto) 2 % (0-3) Basophils (%) (Auto) 1 % (0-3) Neutrophils # (Auto) 1.1 x10^3uL (1.8-7.7) L Lymphocytes # (Auto) 2.0 x10^3/uL (1.0-4.8) Monocytes # (Auto) 0.6 x10^3/uL (0.0-1.1) Eosinophils # (Auto) 0.1 x10^3/uL (0.0-0.7) Basophils # (Auto) 0.0 x10^3/uL (0.0-0.2) Sodium Level 141 mmol/L (136-145) Potassium Level 3.0 mmol/L (3.5-5.1) L Chloride Level 105 mmol/L (98-107) Carbon Dioxide Level 27 mmol/L (21-32) Anion Gap 9 (6-14) Blood Urea Nitrogen 13 mg/dL (7-20) Creatinine 0.7 mg/dL (0.6-1.0) Estimated GFR (Cockcroft-Gault) 120.6 BUN/Creatinine Ratio 19 (6-20) Glucose Level 83 mg/dL (70-99) Calcium Level 9.5 mg/dL (8.5-10.1) Total Bilirubin 0.4 mg/dL (0.2-1.0) Aspartate Amino Transferase (AST) 13 U/L (15-37) L Alanine Aminotransferase (ALT) 11 U/L (14-59) L Alkaline Phosphatase 81 U/L (46-116) Total Protein 8.9 g/dL (6.4-8.2) H Albumin 4.2 g/dL (3.4-5.0) Albumin/Globulin Ratio 0.9 (1.0-1.7) L Thyroid Stimulating Hormone (TSH) 2.272 uIU/mL (0.358-3.74) Laboratory Tests 06/12/17 14:40 Laboratory Tests 06/12/17 14:40 EKG EKG [EKG: Normal sinus rhythm, no acute ST-T wave changes] Radiology/Procedures Radiology/Procedures [Chest x-ray: No acute cardiopulmonary disease on preliminary ED review.] Course & Med Decision Making Course & Med Decision Making Pertinent Labs and Imaging studies reviewed. (See chart for details) [Patient with acute lupus flare secondary to weather change. EKG lab and imaging studies reviewed. Potassium replaced. Patient given fluids and pain medication with improved symptoms. Recommend continued supportive care with PCP follow-up for further management. Return precautions reviewed.] Dragon Disclaimer Dragon Disclaimer This electronic medical record was generated, in whole or in part, using a voice recognition dictation system. Departure Departure Impression: Primary Impression: Diffuse arthralgia Additional Impressions: Lupus Hypokalemia Disposition: 01 HOME, SELF-CARE Condition: Referrals: MADONNA BOATENG MD (PCP) Patient Instructions: Arthralgia, Lupus Additional Instructions: You were evaluated in the emergency department for generalized aches and body pain. Lab work, EKG and imaging studies were performed and are nondiagnostic.Your symptoms are most consistent with lupus. Please go home rest , increase fluids, and take hydrocodone as needed for pain. Follow-up with your PCP early next week. If you develop new or worsening symptoms, please return to the emergency department. Problem Qualifiers ENRRIQUE GONZALEZ DO Jun 12, 2017 16:31
[2017-06-12 16:41] VITALS: BP 117/77
[2017-06-12] MEDS ORDERED: POTASSIUM CHLORIDE 20 MEQ TABLET.ER. PO ONE (16:45)
[2017-06-12] MEDS ORDERED: oxyCODONE/APAP 5/325 1 TAB TABLET PO ONE (16:45)
== END 2017-06-12 16:55 | disposition home or self-care (01) ==
LOC: ER 13:56
DX: M25.50 Pain in unspecified joint (principal); E87.6 Hypokalemia; M32.9 Systemic lupus erythematosus, unspecified; Z86.718 Personal history of other venous thrombosis and embolism; Z86.73 Personal history of transient ischemic attack (TIA), and cerebral infarction without residual deficits; F31.9 Bipolar disorder, unspecified; G43.909 Migraine, unspecified, not intractable, without status migrainosus; Z95.5 Presence of coronary angioplasty implant and graft; Z88.8 Allergy status to other drugs, medicaments and biological substances
CPT/HCPCS: 36415; 71010; 80053; 84443; 85025; 93005; 96361; 96374; 99285; J2270; J2405; J7030

== ENCOUNTER 2017-07-12 09:59 | Emergency (ER) | payer SELFPAY ==
[~2017-07-12] VITALS: Ht 185.4 cm; Wt 68.9 kg
[2017-07-12 10:06] VITALS: BP 120/76
[2017-07-12] MEDS ORDERED: DEXAMETHASONE 4 MG TABLET PO STA (10:16)
[2017-07-12] MEDS ORDERED: IV NORMAL SALINE 1000ML BAG 1,000 ML IV ONE (10:30)
[2017-07-12] MEDS ORDERED: HYDROcodone/APAP 5/325MG 1 TAB TABLET PO ONE (10:30)
[2017-07-12 10:43] LABS: OBC FLU VALID
[2017-07-12 11:08] LABS: BASO % 1 % (0-3); EOS % 2 % (0-3); HEMATOCRIT 37.4 % (36.0-47.0); HEMOGLOBIN 12.2 g/dL (12.0-15.5); LYMPH # 1.1 x10^3/uL (1.0-4.8); LYMPH % 22 % (24-48); MEAN CORPUSCULAR HEMOGLOBIN 29 pg (25-35); MEAN CORPUSCULAR HGB CONC 33 g/dL (31-37); MEAN CORPUSCULAR VOLUME 89 fL (79-100); MONO % 8 % (0-9); NEUT % 67 % (31-73); PLATELET COUNT 192 x10^3/uL (140-400); RED BLOOD COUNT 4.19 x10^6/uL (3.50-5.40); RED CELL DISTRIBUTION WIDTH 14.1 % (11.5-14.5); WHITE BLOOD COUNT 5.1 x10^3/uL (4.0-11.0)
[2017-07-12 11:10] LABS: CALCIUM 9.3 mg/dL (8.5-10.1); CREATININE 0.6 mg/dL (0.6-1.0); POTASSIUM 3.6 mmol/L (3.5-5.1)
[2017-07-12 11:16] LABS: ALBUMIN 3.9 g/dL (3.4-5.0); ALBUMIN/GLOBULIN RATIO 0.8 (1.0-1.7); MAGNESIUM 1.9 mg/dL (1.8-2.4); TOTAL BILIRUBIN 0.3 mg/dL (0.2-1.0)
[2017-07-12 11:19] LABS: NEGATIVE OBC STREP NEG; POSITIVE OBC STREP POS
[2017-07-12 12:02] LABS: BILIRUBIN,URINE NEGATIVE (NEG); GLUCOSE,URINE NEGATIVE (NEG); NITRITE,URINE NEGATIVE (NEG); PH,URINE 6.5; PROTEIN,URINE NEGATIVE (NEG-TRACE); UROBILINOGEN,URINE 0.2 mg/dL (0.2 mg/dL)
[2017-07-12 12:17] LABS: BACTERIA,URINE 0 /HPF (0-FEW); RBC,URINE 0 /HPF (0-2); WBC,URINE RARE /HPF (0-4)
--- NOTE | 2017-07-12 13:01 | RAD ---
EXAM: Chest, 2 views. HISTORY: Cough. COMPARISON: 06/12/2017. FINDINGS: Frontal and lateral views of the chest are obtained. There is no infiltrate, effusion or pneumothorax. The heart is normal in size. There are few calcified granulomas. IMPRESSION: No acute pulmonary finding.
--- NOTE | 2017-07-12 13:08 | PHYS DOC ---
Past Medical History Past Medical History: Anemia, Bipolar, Depression, DVT, Migraines, Seizure, Stroke, Other Additional Past Medical Histor: Ulcerative colitis, Lupus & Protein S deficiency causing frequent DVTs Past Surgical History: Angioplasty, Other Additional Past Surgical Histo: Filter & 7 stents LEFT LEG, D&C x 3 Alcohol Use: None Drug Use: Marijuana Adult General Chief Complaint Chief Complaint: FLU SYMPTOM HPI HPI Patient is a 26 year old female presenting to the emergency department for evaluation of multiple symptoms including cough congestion runny nose and body aches fevers chills nausea. Going on for approximately one week but the fever started last night and given her history of lupus she was concerned and came to the emergency department. He is leaving on a cruise ship that speaks some [place] later this week and she is hoping to feel better by the time she leaves. Patient denies dysuria rash diarrhea. She says that the cough is productive of yellowish mucus. Review of Systems Review of Systems Constitutional: + fever, chills [] Eyes: Denies change in visual acuity, redness, or eye pain [] HENT: + nasal congestion. No sore throat [] Respiratory: Denies cough or shortness of breath [] Cardiovascular: No additional information not addressed in HPI [] GI: Denies abdominal pain. + nausea. No vomiting, bloody stools or diarrhea [] : Denies dysuria or hematuria [] Musculoskeletal: + diffuse muscle and joint pain [] Integument: Denies rash or skin lesions [] Neurologic: Denies headache, focal weakness or sensory changes [] All other systems were reviewed and found to be within normal limits, except as documented in this note. Current Medications Current Medications Current Medications Medications (Trade) Dose Ordered Sig/Cyndi Start Time Stop Time Status Last Admin Dose Admin Acetaminophen/ Hydrocodone Bitart (Lortab 5/325) 2 tab 1X ONCE 07/12/17 10:30 07/12/17 10:31 DC 07/12/17 10:57 2 TAB Dexamethasone (Decadron) 8 mg 1X STAT 07/12/17 10:16 07/12/17 10:19 DC 07/12/17 10:57 8 MG Sodium Chloride 1,000 ml @ 1,000 mls/hr 1X ONCE 07/12/17 10:30 07/12/17 11:29 DC 07/12/17 10:59 1,000 MLS/HR Allergies Allergies Allergies Coded Allergies Type Severity Reaction Last Updated Verified prochlorperazine Allergy Severe DYSTONIC REACTION 06/12/17 Yes warfarin Allergy Intermediate "AGGRAVATES ULCERS IN STOMACH" 06/12/17 Yes Physical Exam Physical Exam Constitutional: Well developed, well nourished, no acute distress, non-toxic appearance. [] HENT: Normocephalic, atraumatic, bilateral external ears normal, oropharynx moist, no oral exudates, nose with boggy nasal turbinates. [] Eyes: PERRLA, EOMI, conjunctiva normal, no discharge. [] Neck: Normal range of motion, no tenderness, supple, no stridor. [] Cardiovascular:Heart rate regular rhythm, no murmur [] Lungs & Thorax: Bilateral breath sounds clear to auscultation [] Abdomen: Bowel sounds normal, soft, no tenderness, no masses, no pulsatile masses. [] Skin: Warm, dry, no erythema, no rash. [] Back: No tenderness, no CVA tenderness. [] Extremities: No tenderness, no cyanosis, no clubbing, ROM intact, no edema. [] Neurologic: Alert and oriented X 3, normal motor function, normal sensory function, no focal deficits noted. [] Psychologic: Affect normal, judgement normal, mood normal. [] Current Patient Data Vital Signs Vital Signs Date Time Temp Pulse Resp B/P (MAP) Pulse Ox O2 Delivery O2 Flow Rate FiO2 07/12/17 10:57 18 07/12/17 10:06 98.2 127 120/76 (91) 98 Room Air 98.2 Lab Values Laboratory Tests Test 07/12/17 10:18 07/12/17 10:21 07/12/17 10:44 07/12/17 11:42 Influenza Type A Antigen Negative (NEGATIVE) Influenza Type B Antigen Negative (NEGATIVE) Group A Streptococcus Rapid Negative (NEGATIVE) White Blood Count 5.1 x10^3/uL (4.0-11.0) Red Blood Count 4.19 x10^6/uL (3.50-5.40) Hemoglobin 12.2 g/dL (12.0-15.5) Hematocrit 37.4 % (36.0-47.0) Mean Corpuscular Volume 89 fL (79-100) Mean Corpuscular Hemoglobin 29 pg (25-35) Mean Corpuscular Hemoglobin Concent 33 g/dL (31-37) Red Cell Distribution Width 14.1 % (11.5-14.5) Platelet Count 192 x10^3/uL (140-400) Neutrophils (%) (Auto) 67 % (31-73) Lymphocytes (%) (Auto) 22 % (24-48) L Monocytes (%) (Auto) 8 % (0-9) Eosinophils (%) (Auto) 2 % (0-3) Basophils (%) (Auto) 1 % (0-3) Neutrophils # (Auto) 3.4 x10^3uL (1.8-7.7) Lymphocytes # (Auto) 1.1 x10^3/uL (1.0-4.8) Monocytes # (Auto) 0.4 x10^3/uL (0.0-1.1) Eosinophils # (Auto) 0.1 x10^3/uL (0.0-0.7) Basophils # (Auto) 0.0 x10^3/uL (0.0-0.2) Sodium Level 140 mmol/L (136-145) Potassium Level 3.6 mmol/L (3.5-5.1) Chloride Level 104 mmol/L (98-107) Carbon Dioxide Level 26 mmol/L (21-32) Anion Gap 10 (6-14) Blood Urea Nitrogen 14 mg/dL (7-20) Creatinine 0.6 mg/dL (0.6-1.0) Estimated GFR (Cockcroft-Gault) 144.0 BUN/Creatinine Ratio 23 (6-20) H Glucose Level 80 mg/dL (70-99) Lactic Acid Level 0.9 mmol/L (0.4-2.0) Calcium Level 9.3 mg/dL (8.5-10.1) Magnesium Level 1.9 mg/dL (1.8-2.4) Total Bilirubin 0.3 mg/dL (0.2-1.0) Aspartate Amino Transferase (AST) 17 U/L (15-37) Alanine Aminotransferase (ALT) 13 U/L (14-59) L Alkaline Phosphatase 77 U/L (46-116) Creatine Kinase 49 U/L (26-192) Total Protein 9.0 g/dL (6.4-8.2) H Albumin 3.9 g/dL (3.4-5.0) Albumin/Globulin Ratio 0.8 (1.0-1.7) L Urine Collection Type Unknown Urine Color Yellow Urine Clarity Cloudy Urine pH 6.5 Urine Specific [place] >=1.030 Urine Protein Negative mg/dL (NEG-TRACE) Urine Glucose (UA) Negative mg/dL (NEG) Urine Ketones (Stick) 15 mg/dL (NEG) Urine Blood Negative (NEG) Urine Nitrite Negative (NEG) Urine Bilirubin Negative (NEG) Urine Urobilinogen Dipstick 0.2 mg/dL (0.2 mg/dL) Urine Leukocyte Esterase Trace (NEG) Urine RBC 0 /HPF (0-2) Urine WBC Rare /HPF (0-4) Urine Bacteria 0 /HPF (0-FEW) Laboratory Tests 07/12/17 10:44 Laboratory Tests 07/12/17 10:44 EKG EKG [] Radiology/Procedures Radiology/Procedures EXAM: Chest, 2 views. HISTORY: Cough. COMPARISON: 06/12/2017. FINDINGS: Frontal and lateral views of the chest are obtained. There is no infiltrate, effusion or pneumothorax. The heart is normal in size. There are few calcified granulomas. IMPRESSION: No acute pulmonary finding. DICTATED and SIGNED BY: BING NEAL MD DATE: 07/12/17 7446 Course & Med Decision Making Course & Med Decision Making Patient does have history of lupus with some immunosuppression so she had labs urinalysis and chest x-ray done to evaluate for acute pathology. Unremarkable for acute pathology at this time but she does appear somewhat dehydrated. Decadron IV fluids along with [place] given and she says she is feeling much better with decreased cough. Patient looks and feels well and is stable for discharge in my opinion so she'll be discharged with instructions to use over- the-counter Nasonex drink plenty of fluids eat a good diet and will prescribe [place] for pain cough albuterol Zithromax and Zofran. I told her she should probably not gone her [place] if she is still feeling ill but if she is starting to feel better she could go on the cruise. Patient aware and agreeable with plan for discharge and verbalized understanding of the need for short-term follow-up and strict ED return precautions discussed worsening pain fevers vomiting or other general concerns. Dragon Disclaimer Dragon Disclaimer This electronic medical record was generated, in whole or in part, using a voice recognition dictation system. Departure Departure Impression: Primary Impression: Upper respiratory infection Disposition: 01 HOME, SELF-CARE Condition: STABLE Referrals: MADONNA BOATENG MD (PCP) Patient Instructions: Upper Respiratory Infection, Adult Additional Instructions: DRINK PLENTY OF FLUIDS AND EAT A GOOD DIET. USE OTC NASONEX FOR YOUR SINUS CONGESTION. FOLLOW WITH YOUR PCP LATER THIS WEEK TO ENSURE IMPROVEMENT AND COME BACK TO THE ED WITH ANY NEW OR WORSENING SYMPTOMS. THANK YOU! Scripts Hydrocodone/Apap 5-325 (NORCO 5-325 TABLET) 1 Each Tablet 1 TAB PO PRN Q6HRS Y for PAIN, #20 TAB 0 Refills Prov: MAE COPELAND DO 07/12/17 Albuterol Sulfate (PROAIR HFA INHALER) 8.5 Gm Hfa.aer.ad 1 PUFF INH Q4HRS Y for SHORTNESS OF BREATH, #1 INHALER 0 Refills Prov: MAE COPELAND DO 07/12/17 Ondansetron (ZOFRAN ODT) 4 Mg Tab.rapdis 4 MG PO BID Y for NAUSEA/VOMITING, #14 TAB Prov: MAE COPELAND DO 07/12/17 Azithromycin (ZITHROMAX) 250 Mg Tablet 1 PKG PO UD, #6 TAB Prov: MAE COPELAND DO 07/12/17 Problem Qualifiers Primary Impression: Upper respiratory infection URI type: unspecified URI Qualified Codes: J06.9 - Acute upper respiratory infection, unspecified MAE COPELAND DO Jul 12, 2017 13:08
[2017-07-12] MEDS ORDERED: PROAIR HFA8.5 GM INH (13:18)
[2017-07-12] MEDS ORDERED: ONDA4TAB10 PO (13:18)
[2017-07-12] MEDS ORDERED: AZIT250T PO (13:18)
[2017-07-12] MEDS ORDERED: HYDR-971 PO (13:18)
== END 2017-07-12 13:40 | disposition home or self-care (01) ==
LOC: ER 09:59
DX: J06.9 Acute upper respiratory infection, unspecified (principal); Z86.718 Personal history of other venous thrombosis and embolism; F31.9 Bipolar disorder, unspecified; G43.909 Migraine, unspecified, not intractable, without status migrainosus; F12.10 Cannabis abuse, uncomplicated; Z98.61 Coronary angioplasty status; Z86.73 Personal history of transient ischemic attack (TIA), and cerebral infarction without residual deficits; Z86.2 Personal history of diseases of the blood and blood-forming organs and certain disorders involving the immune mechanism; Z88.8 Allergy status to other drugs, medicaments and biological substances
CPT/HCPCS: 36415; 71020; 80053; 81001; 82550; 83605; 83735; 85025; 87040; 87070; 87086; 87804; 87880; 96360; 99285; J7030; J8540

== ENCOUNTER 2017-07-14 00:47 | Emergency (ER) | payer SELFPAY ==
[~2017-07-14] VITALS: Ht 185.4 cm; Wt 71.7 kg
[~2017-07-14 00:47] MED LIST changes: +AZIT250T PO; +ONDA4TAB10 PO
[2017-07-14] MEDS ORDERED: IPRATRPIUM/ALBUTEROL 0.5/2.5MG 3 ML NEBU. NEB ONE (01:30)
[2017-07-14] MEDS ORDERED: ONDANSETRON PF 4 MG/2 ML VIAL. IV ONE (01:30)
[2017-07-14] MEDS ORDERED: IV NORMAL SALINE 1000ML BAG 1,000 ML IV ONE (01:30)
[2017-07-14 01:33] LABS: BASO % 1 % (0-3); EOS % 1 % (0-3); HEMOGLOBIN 11.7 g/dL (12.0-15.5); LYMPH # 3.5 x10^3/uL (1.0-4.8); LYMPH % 47 % (24-48); MEAN CORPUSCULAR HEMOGLOBIN 30 pg (25-35); MEAN CORPUSCULAR HGB CONC 33 g/dL (31-37); MEAN CORPUSCULAR VOLUME 89 fL (79-100); MONO % 13 % (0-9); NEUT % 39 % (31-73); PLATELET COUNT 206 x10^3/uL (140-400); RED BLOOD COUNT 3.95 x10^6/uL (3.50-5.40); RED CELL DISTRIBUTION WIDTH 13.7 % (11.5-14.5); WHITE BLOOD COUNT 7.5 x10^3/uL (4.0-11.0)
[2017-07-14 01:48] LABS: BILIRUBIN,URINE NEGATIVE (NEG); GLUCOSE,URINE NEGATIVE (NEG); NITRITE,URINE NEGATIVE (NEG); PH,URINE 6.5; PROTEIN,URINE NEGATIVE (NEG-TRACE); UROBILINOGEN,URINE 0.2 mg/dL (0.2 mg/dL)
[2017-07-14 01:48] LABS: CALCIUM 9.4 mg/dL (8.5-10.1); CREATININE 0.6 mg/dL (0.6-1.0); POTASSIUM 3.3 mmol/L (3.5-5.1)
[2017-07-14 01:54] LABS: ALBUMIN/GLOBULIN RATIO 0.8 (1.0-1.7); TOTAL BILIRUBIN 0.3 mg/dL (0.2-1.0); TOTAL PROTEIN 8.8 g/dL (6.4-8.2)
[2017-07-14 02:00] LABS: BACTERIA,URINE FEW /HPF (0-FEW); RBC,URINE OCC /HPF (0-2); SQUAMOUS EPITHELIAL CELL,UR MOD /LPF
[2017-07-14] MEDS ORDERED: POTASSIUM CHLORIDE 20 MEQ TABLET.ER. PO ONE (02:30)
[2017-07-14] MEDS ORDERED: KETOROLAC 30 MG/ML INJ. IV ONE (02:30)
[2017-07-14] MEDS ORDERED: CEPH-264 PO (02:56)
--- NOTE | 2017-07-14 02:56 | PHYS DOC ---
Past Medical History Past Medical History: Anxiety, Bipolar, Depression, Stroke, Other Additional Past Medical Histor: Lupus;Preeclamp/HELP syn ; Ulcer colitis; Left sided weakness Past Surgical History: Angioplasty, Other Additional Past Surgical Histo: [place] Filter; Stents (left leg); D&C x2 Alcohol Use: None Drug Use: None Adult General Chief Complaint Chief Complaint: FLU SYMPTOM HPI HPI Patient is a 26 year old female who presents with cough & vomiting. The patient reports 3 day history of illness with cough, now vomiting 6-7 times today still feeling nauseated & poorly tolerating oral intake. Denies fevers/ chills, chest pain, shortness of breath, abdominal pain, diarrhea, dysuria. She has past medical history of lupus, ulcerative colitis, multiple CVA. She was seen here on 07/12 for same symptoms but cough more prominent than vomiting at that time. States she has been taking prescribed medications including azithromycin, prednisone, zofran, but feeling worse rather than better. PCP is Dr. Morataya. Review of Systems Review of Systems Constitutional: Denies fever or chills Eyes: Denies drainage HENT: Denies nasal congestion, reports sore throat Respiratory: Reports cough, denies shortness of breath Cardiovascular: Denies chest pain or edema GI: Reports nausea & vomiting. Denies abdominal pain, or diarrhea : Denies dysuria or hematuria Musculoskeletal: Denies back pain or joint pain Integument: Denies rash or skin lesions Neurologic: Denies headache, focal weakness or sensory changes All other systems were reviewed and found to be within normal limits, except as documented in this note. Current Medications Current Medications Current Medications Medications (Trade) Dose Ordered Sig/Cyndi Start Time Stop Time Status Last Admin Dose Admin Albuterol/ Ipratropium (Duoneb) 3 ml 1X ONCE 07/14/17 01:30 07/14/17 01:31 DC 07/14/17 01:39 3 ML Ketorolac Tromethamine (Toradol) 30 mg 1X ONCE 07/14/17 02:30 07/14/17 02:31 DC 07/14/17 02:31 30 MG Ondansetron HCl (Zofran) 4 mg 1X ONCE 07/14/17 01:30 07/14/17 01:31 DC 07/14/17 01:34 4 MG Potassium Chloride (Klor-Con) 40 meq 1X ONCE 07/14/17 02:30 07/14/17 02:31 DC Sodium Chloride 1,000 ml @ 1,000 mls/hr 1X ONCE 07/14/17 01:30 07/14/17 02:29 DC 07/14/17 01:35 1,000 MLS/HR Allergies Allergies Allergies Coded Allergies Type Severity Reaction Last Updated Verified prochlorperazine Allergy Severe DYSTONIC REACTION 06/12/17 Yes warfarin Allergy Intermediate "AGGRAVATES ULCERS IN STOMACH" 06/12/17 Yes Physical Exam Physical Exam Constitutional: Well developed, well nourished, no acute distress, non-toxic appearance. HENT: Normocephalic, atraumatic, bilateral external ears normal, oropharynx moist, nose normal. Eyes: conjunctiva normal, no discharge. Neck: supple, no stridor. Cardiovascular: RRR, no murmurs, no edema. Lungs & Thorax: LCTAB, no wheezing, no respiratory distress. Abdomen: soft, nontender, nondistended. no masses or pulsatile masses, no rebound/guarding. Skin: Warm, dry, no erythema, no rash. Back: No CVA tenderness. Extremities: No tenderness, no edema. Neurologic: Alert and oriented X 3, no focal deficits noted. Psychologic: Affect normal, judgement normal, mood normal. Current Patient Data Vital Signs Vital Signs Date Time Temp Pulse Resp B/P (MAP) Pulse Ox O2 Delivery O2 Flow Rate FiO2 07/14/17 03:06 15 129/77 (94) 98 07/14/17 02:51 80 07/14/17 01:40 Room Air 07/14/17 00:55 98.8 98.8 Lab Values Laboratory Tests Test 07/14/17 01:22 07/14/17 01:37 07/14/17 01:41 White Blood Count 7.5 x10^3/uL (4.0-11.0) Red Blood Count 3.95 x10^6/uL (3.50-5.40) Hemoglobin 11.7 g/dL (12.0-15.5) L Hematocrit 35.0 % (36.0-47.0) L Mean Corpuscular Volume 89 fL (79-100) Mean Corpuscular Hemoglobin 30 pg (25-35) Mean Corpuscular Hemoglobin Concent 33 g/dL (31-37) Red Cell Distribution Width 13.7 % (11.5-14.5) Platelet Count 206 x10^3/uL (140-400) Neutrophils (%) (Auto) 39 % (31-73) Lymphocytes (%) (Auto) 47 % (24-48) Monocytes (%) (Auto) 13 % (0-9) H Eosinophils (%) (Auto) 1 % (0-3) Basophils (%) (Auto) 1 % (0-3) Neutrophils # (Auto) 2.9 x10^3uL (1.8-7.7) Lymphocytes # (Auto) 3.5 x10^3/uL (1.0-4.8) Monocytes # (Auto) 1.0 x10^3/uL (0.0-1.1) Eosinophils # (Auto) 0.1 x10^3/uL (0.0-0.7) Basophils # (Auto) 0.0 x10^3/uL (0.0-0.2) Sodium Level 141 mmol/L (136-145) Potassium Level 3.3 mmol/L (3.5-5.1) L Chloride Level 103 mmol/L (98-107) Carbon Dioxide Level 28 mmol/L (21-32) Anion Gap 10 (6-14) Blood Urea Nitrogen 10 mg/dL (7-20) Creatinine 0.6 mg/dL (0.6-1.0) Estimated GFR (Cockcroft-Gault) 144.0 BUN/Creatinine Ratio 17 (6-20) Glucose Level 88 mg/dL (70-99) Calcium Level 9.4 mg/dL (8.5-10.1) Total Bilirubin 0.3 mg/dL (0.2-1.0) Aspartate Amino Transferase (AST) 14 U/L (15-37) L Alanine Aminotransferase (ALT) 11 U/L (14-59) L Alkaline Phosphatase 72 U/L (46-116) Total Protein 8.8 g/dL (6.4-8.2) H Albumin 4.0 g/dL (3.4-5.0) Albumin/Globulin Ratio 0.8 (1.0-1.7) L Lipase 83 U/L (73-393) Urine Collection Type Unknown Urine Color Yellow Urine Clarity Cloudy Urine pH 6.5 Urine Specific [place] >=1.030 Urine Protein Negative mg/dL (NEG-TRACE) Urine Glucose (UA) Negative mg/dL (NEG) Urine Ketones (Stick) Negative mg/dL (NEG) Urine Blood Negative (NEG) Urine Nitrite Negative (NEG) Urine Bilirubin Negative (NEG) Urine Urobilinogen Dipstick 0.2 mg/dL (0.2 mg/dL) Urine Leukocyte Esterase Small (NEG) Urine RBC Occ /HPF (0-2) Urine WBC 11-20 /HPF (0-4) Urine Squamous Epithelial Cells Mod /LPF Urine Bacteria Few /HPF (0-FEW) Urine Mucus Marked /LPF POC Urine HCG, Qualitative Hcg negative (Negative) Laboratory Tests 07/14/17 01:22 Laboratory Tests 07/14/17 01:22 EKG EKG [] Radiology/Procedures Radiology/Procedures CXR, 2 view: interpreted by me: no cardiomegaly, no infiltrate, no pneumothorax, diaphragmatic flattening, no acute process.[] Course & Med Decision Making Course & Med Decision Making Pertinent Labs and Imaging studies reviewed. (See chart for details) The patient presents with cough & vomiting. Not tolerating PO intake. Gave IV fluids, zofran, pain medication, duoneb treatment. Obtained labs which showed hypokalemia but she declined oral potassium here because she takes it at home. No evidence of pneumonia on x-ray, vitals stable. She felt better after treatments. Recommend rest, hydration, tylenol/ibuprofen for pain or fever, zofran for nausea, will additionally give keflex for UTI. Follow up with PCP in 2-3 days. Come back for severe shortness of breath, uncontrolled vomiting, severe abdominal pain, any otherwise worsening condition. Discharged home in stable condition. [] Dragon Disclaimer Dragon Disclaimer This electronic medical record was generated, in whole or in part, using a voice recognition dictation system. Departure Departure Impression: Primary Impression: Nausea & vomiting Additional Impressions: UTI (urinary tract infection) Hypokalemia Upper respiratory infection Disposition: 01 HOME, SELF-CARE Condition: STABLE Referrals: MADONNA MORATAYA MD (PCP) Patient Instructions: Nausea and Vomiting, [id number], Upper Respiratory Infection, Adult, [id number] Additional Instructions: You were seen in the emergency department today for nausea, vomiting, & cough. You improved with treatment here. be sure to take potassium at home because your level was low today. Drink sips of clear liquids to stay hydrated, take zofran for nausea. Take keflex for urinary tract infection. Follow up with primary care physician in 2-3 days. Come back for severe shortness of breath or chest pain, severe abdominal pain, uncontrolled vomiting, any otherwise worsening condition. Scripts Cephalexin (KEFLEX) 500 Mg Capsule 1 CAP PO BID, #14 CAP Prov: ANNETTE DURAN MD 07/14/17 Problem Qualifiers Primary Impression: Nausea & vomiting Vomiting type: unspecified Vomiting Intractability: unspecified Qualified Codes: R11.2 - Nausea with vomiting, unspecified ANNETTE DURAN MD Jul 14, 2017 02:56
[2017-07-14 03:06] VITALS: BP 129/77
--- NOTE | 2017-07-14 07:08 | RAD ---
Chest, 2 views, 07/14/2017: History: Cough Comparison is made to a study from 07/12/2017. The heart size is normal. The lungs are clear. There is no evidence of pleural fluid. IMPRESSION: No acute cardiopulmonary abnormality is detected.
== END 2017-07-14 03:29 | disposition home or self-care (01) ==
LOC: ER 00:47
DX: N39.0 Urinary tract infection, site not specified (principal); E87.6 Hypokalemia; J06.9 Acute upper respiratory infection, unspecified; F41.9 Anxiety disorder, unspecified; F32.9 Major depressive disorder, single episode, unspecified; Z86.73 Personal history of transient ischemic attack (TIA), and cerebral infarction without residual deficits; Z98.61 Coronary angioplasty status; Z88.8 Allergy status to other drugs, medicaments and biological substances
CPT/HCPCS: 36415; 71020; 80053; 81001; 81025; 83690; 85025; 87086; 94250; 94640; 96361; 96374; 96375; 99285; J1885; J2405; J7030; J7620

== ENCOUNTER 2017-10-09 22:19 | Emergency (ER) | payer OTHER ==
[2017-10-09 23:00] LABS: NEG OBC UR NEG; POS OBC UR POS; U PREG PATIENT NEGATIVE (NEG)
[2017-10-09] MEDS ORDERED: IV NORMAL SALINE 1000ML BAG 1,000 ML IV ×2 (23:00)
== END 2017-10-09 23:24 | disposition left against medical advice (07) ==
LOC: ER 23:24
DX: N92.6 Irregular menstruation, unspecified (principal); R42 Dizziness and giddiness; R45.4 Irritability and anger; F32.9 Major depressive disorder, single episode, unspecified; F41.9 Anxiety disorder, unspecified; Z76.5 Malingerer [conscious simulation]; Z86.73 Personal history of transient ischemic attack (TIA), and cerebral infarction without residual deficits; Z88.8 Allergy status to other drugs, medicaments and biological substances
CPT/HCPCS: 81025; 99283

== ENCOUNTER 2018-01-24 00:55 | Emergency (ER) | payer OTHER | END 2018-01-24 01:35 | disposition home or self-care (01) | LOC: ER 00:55 | DX: K08.89 Other specified disorders of teeth and supporting structures (principal); M32.9 Systemic lupus erythematosus, unspecified; Z86.73 Personal history of transient ischemic attack (TIA), and cerebral infarction without residual deficits; F31.9 Bipolar disorder, unspecified; Z88.8 Allergy status to other drugs, medicaments and biological substances | CPT/HCPCS: 99283 ==

== ENCOUNTER → 2018-02-17 | Day surgery (SDC) | payer OTHER ==
[~2018-02-17] MED LIST changes: -ALPR2TAB2 PO; -APIX5TAB PO; -AZIT250T PO; -AZIT250T6 PO; -BENZ100C PO; -BUPR150T15 PO; -BUPR150T20 PO; -BUPR150T6 PO; -CEPH-264 PO; -CLON1TAB3 PO; -CLON2TAB2 PO; -CRAN1CAP13 PO; -CYAN1TAB28 PO; -DESV100T PO; -DEXT20CA7 PO; -DEXT30TA2 PO; -DIPH25CA58 PO; -DOCU100C28 PO; -ENOX40DI SQ; -FLUC150T PO; -HYDR-2762 PO; -HYDR-971 PO; -HYDR50TA PO; -IBUP800T19 PO; -LEVE100020 PO; +MEPERIDINE PF 25 MG/ML VIAL.; -MESA250C PO; -MESA800T2 PO; -METR500T PO; +MIDAZOLAM HCL/PF 5 MG/5 ML VIAL.; -NITR100C62 PO; -OLAN20TA3 PO; -ONDA4TAB10 PO; -PANT20TA2 PO; -PANT40TA3 PO; -PARO20TA99 PO; -PENI500T PO; -PRAZ1CAP2 PO; -PRED-220 PO; -PRED20TA PO; -PRED50TA PO; -PROAIR HFA8.5 GM INH; -SENN-22 PO; -TOPI50TA38 PO; -TRAM50TA PO; -TRAZ100T12 PO; -TRAZ50TA15 PO; -VENL75TA PO; -WARF1TAB74; -ZOLP5TAB5 PO; -[UNRECOGNIZED DRUG - CODE] SQ; +diphenhydrAMINE 50 MG/ML VIAL
[2018-02-17] MEDS: diphenhydrAMINE 50 MG/ML VIAL IV ×2 (16:21→16:29)
[2018-02-17] MEDS: MIDAZOLAM HCL/PF 5 MG/5 ML VIAL. IV ×5 (16:24→16:42)
[2018-02-17] MEDS: MEPERIDINE PF 25 MG/ML VIAL. IV ×4 (16:24→16:42)
[2018-02-17 19:03] LABS: NEG OBC UR NEG; POS OBC UR POS; U PREG PATIENT NEGATIVE (NEG)
== END | disposition home or self-care (01) ==
LOC: ENDOS 15:28
DX: K63.3 Ulcer of intestine (principal); K64.0 First degree hemorrhoids; K63.89 Other specified diseases of intestine; B37.81 Candidal esophagitis; Z86.73 Personal history of transient ischemic attack (TIA), and cerebral infarction without residual deficits; Z79.01 Long term (current) use of anticoagulants; D64.9 Anemia, unspecified; M79.7 Fibromyalgia; I10 Essential (primary) hypertension; J45.909 Unspecified asthma, uncomplicated; K21.9 Gastro-esophageal reflux disease without esophagitis; M19.90 Unspecified osteoarthritis, unspecified site; F17.210 Nicotine dependence, cigarettes, uncomplicated; Z79.899 Other long term (current) drug therapy; Z98.890 Other specified postprocedural states; G40.909 Epilepsy, unspecified, not intractable, without status epilepticus; Z95.5 Presence of coronary angioplasty implant and graft; Z86.718 Personal history of other venous thrombosis and embolism; Z87.440 Personal history of urinary (tract) infections; E11.9 Type 2 diabetes mellitus without complications; M32.9 Systemic lupus erythematosus, unspecified; F20.9 Schizophrenia, unspecified; F90.9 Attention-deficit hyperactivity disorder, unspecified type; F43.10 Post-traumatic stress disorder, unspecified; F41.0 Panic disorder [episodic paroxysmal anxiety]; F31.9 Bipolar disorder, unspecified; F12.90 Cannabis use, unspecified, uncomplicated; Z88.8 Allergy status to other drugs, medicaments and biological substances; Z79.84 Long term (current) use of oral hypoglycemic drugs
CPT/HCPCS: 43239; 45380; 45385; 81025; 88305; 88312; 99152; G0500; J1200; J2175; J2250

== ENCOUNTER 2018-04-02 18:12 | Emergency (ER) | payer OTHER ==
[2018-04-02 18:30] LABS: ADD MAN DIFF? NO
[2018-04-02] MEDS: IV NORMAL SALINE 1000ML BAG 1,000 ML IV (18:31)
[2018-04-02 18:33] LABS: BASO % 1 % (0-3); EOS # 0.2 x10^3/uL (0.0-0.7); EOS % 3 % (0-3); HEMATOCRIT 31.7 % (36.0-47.0); HEMOGLOBIN 10.6 g/dL (12.0-15.5); LYMPH # 2.7 x10^3/uL (1.0-4.8); LYMPH % 47 % (24-48); MEAN CORPUSCULAR HEMOGLOBIN 30 pg (25-35); MEAN CORPUSCULAR HGB CONC 33 g/dL (31-37); MEAN CORPUSCULAR VOLUME 89 fL (79-100); MONO # 0.5 x10^3/uL (0.0-1.1); MONO % 10 % (0-9); NEUT # 2.3 x10^3uL (1.8-7.7); NEUT % 39 % (31-73); PLATELET COUNT 200 x10^3/uL (140-400); RED BLOOD COUNT 3.56 x10^6/uL (3.50-5.40); WHITE BLOOD COUNT 5.7 x10^3/uL (4.0-11.0)
[2018-04-02 18:41] LABS: ANION GAP 7 (6-14); BLOOD UREA NITROGEN 12 mg/dL (7-20); BUN/CREATININE RATIO 17 (6-20); CARBON DIOXIDE 28 mmol/L (21-32); CHLORIDE 103 mmol/L (98-107); CREATININE 0.7 mg/dL (0.6-1.0); GFR 119.7; GLUCOSE 81 mg/dL (70-99); POTASSIUM 4.2 mmol/L (3.5-5.1); SODIUM 138 mmol/L (136-145)
[2018-04-02 18:47] LABS: ALBUMIN 3.6 g/dL (3.4-5.0); ALBUMIN/GLOBULIN RATIO 0.8 (1.0-1.7); ALK PHOS 83 U/L (46-116); ALT (SGPT) 18 U/L (14-59); AST (SGOT) 18 U/L (15-37); TOTAL BILIRUBIN 0.1 mg/dL (0.2-1.0); TOTAL PROTEIN 8.4 g/dL (6.4-8.2)
[2018-04-02 19:28] LABS: NEG OBC SER NEG; POS OBC SER POS; PREG TEST PT QUAL NEGATIVE (NEG)
[2018-04-05 22:10] LABS: LEVETIRACETAM None Detected ug/mL (10.0-40.0)
== END 2018-04-02 19:32 | disposition left against medical advice (07) ==
LOC: ER 18:12
DX: R56.9 Unspecified convulsions (principal); F31.9 Bipolar disorder, unspecified; M32.9 Systemic lupus erythematosus, unspecified; Z86.73 Personal history of transient ischemic attack (TIA), and cerebral infarction without residual deficits; Z95.5 Presence of coronary angioplasty implant and graft; Z86.711 Personal history of pulmonary embolism; Z88.8 Allergy status to other drugs, medicaments and biological substances
CPT/HCPCS: 36415; 80053; 80177; 83605; 84703; 85025; 93005; 99285-25; J7030

== ENCOUNTER 2018-06-30 15:54 | Emergency (ER) | payer OTHER ==
[~2018-06-30] VITALS: Ht 180.3 cm; Wt 73.9 kg
[~2018-06-30 15:54] MED LIST changes: +ALPR2TAB2 PO; +APIX5TAB PO; +AZIT250T PO; +AZIT250T6 PO; +BENZ100C PO; +BUPR150T15 PO; +BUPR150T20 PO; +BUPR150T6 PO; +CEPH-264 PO; +CLIN300C8 PO; +CLON1TAB4 PO; +CLON2TAB9 PO; +CRAN1CAP13 PO; +CYAN1TAB28 PO; +DESV100T PO; +DEXT20CA7 PO; +DEXT30TA2 PO; +DICY10CA3 PO; +DIPH25CA58 PO; +DOCU100C28 PO; +ENOX40DI SQ; +FLUC150T PO; +HYDR-2762 PO; +HYDR-971 PO; +HYDR50TA PO; +IBUP800T19 PO; +LEVE100020 PO; -MEPERIDINE PF 25 MG/ML VIAL.; +MESA250C PO; +MESA800T2 PO; +METR500T PO; -MIDAZOLAM HCL/PF 5 MG/5 ML VIAL.; +NITR100C62 PO; +OLAN20TA3 PO; +OMEP40CA5 PO; +ONDA4TAB10 PO; +PANT20TA2 PO; +PANT40GR PO; +PANT40TA3 PO; +PARO20TA99 PO; +PARO40TA3 PO; +PENI500T PO; +PRAZ1CAP2 PO; +PRED-220 PO; +PRED20TA PO; +PRED50TA PO; +PROAIR HFA8.5 GM INH; +QUET50TA5 PO; +SENN-22 PO; +TOPI50TA38 PO; +TRAM50TA PO; +TRAZ-85 PO; +TRAZ-86 PO; +VENL75TA PO; +WARF1TAB74; +ZOLP5TAB5 PO; +[UNRECOGNIZED DRUG - CODE] SQ; -diphenhydrAMINE 50 MG/ML VIAL
[2018-06-30 17:48] VITALS: BP 130/90
[2018-06-30] MEDS ORDERED: HYDR-971 PO (17:51)
[2018-06-30] MEDS ORDERED: AMOX875T PO (17:51)
--- NOTE | 2018-06-30 17:52 | PHYS DOC ---
Past Medical History Past Medical History: Anxiety, Bipolar, Depression, Seizure, Stroke, Other Additional Past Medical Histor: Lupus;Preeclamp/HELP syn ; Ulcer colitis; Left sided weakness Past Surgical History: Angioplasty, Other Additional Past Surgical Histo: Radhika Filter; Stents (left leg); D&C x2 Alcohol Use: None Drug Use: None Adult General Chief Complaint Chief Complaint: DENTAL PROBLEM HPI HPI Patient is a 27 year old female with history of bipolar, anxiety, bleeding disorder, who presents today complaining of 10 out of 10 right lower gum dental pain and swelling for 1 week. Patient states no dentist or see her because of bleeding disorder. Patient denies any fever or trismus. Review of Systems Review of Systems Constitutional: Denies fever or chills [] HENT: Reports right lower gum pain and swelling. Denies nasal congestion or sore throat [] Musculoskeletal: Denies back pain or joint pain [] Integument: Denies rash or skin lesions [] Neurologic: Denies headache, focal weakness or sensory changes [] All other systems were reviewed and found to be within normal limits, except as documented in this note. Allergies Allergies Allergies Coded Allergies Type Severity Reaction Last Updated Verified prochlorperazine Allergy Severe DYSTONIC REACTION 02/17/18 Yes warfarin Allergy Intermediate "AGGRAVATES ULCERS IN STOMACH" 02/17/18 Yes Physical Exam Physical Exam Constitutional: Well developed, well nourished, no acute distress, non-toxic appearance. [] HENT: Normocephalic, atraumatic, bilateral external ears normal, oropharynx moist, no oral exudates, nose normal. [] Right cheek with moderate swelling consistent with a dental abscess. Right lower gum with swelling around tooth#30. Tooth #30 is broken and decayed. There is no fluctuance to the gum. Skin: Warm, dry, no erythema, no rash. [] Back: No tenderness, no CVA tenderness. [] Extremities: No tenderness, no cyanosis, no clubbing, ROM intact, no edema. [] Neurologic: Alert and oriented X 3, normal motor function, normal sensory function, no focal deficits noted. [] Psychologic: Affect normal, judgement normal, mood normal. [] Current Patient Data Vital Signs Vital Signs Date Time Temp Pulse Resp B/P (MAP) Pulse Ox O2 Delivery O2 Flow Rate FiO2 06/30/18 17:04 98.4 89 18 117/76 (90) 98 Room Air 98.4 EKG EKG [] Radiology/Procedures Radiology/Procedures [] Course & Med Decision Making Course & Med Decision Making Pertinent Labs and Imaging studies reviewed. (See chart for details) This is a 27-year-old female patient with history of bleeding disorder presenting today with a dental abscess. Patient was discharged with amoxicillin and hydrocodone for pain. Follow-up with a dentist. Juma Disclaimer Dragon Disclaimer This electronic medical record was generated, in whole or in part, using a voice recognition dictation system. Departure Departure Impression: Primary Impression: Dental abscess Disposition: HOME, SELF-CARE Condition: STABLE Referrals: FILIPPO WILSON (PCP) Follow-up with you own dentist as well as your own doctor as soon as you can Patient Instructions: Dental Abscess Additional Instructions: You were seen in the emergency room for dental abscess. Take the prescribed antibiotics as ordered. Ensure you complete them. Follow-up with the dentist as soon as possible. Scripts Amoxicillin (AMOXICILLIN) 875 Mg Tablet 1 TAB PO BID, #20 TAB Prov: ANA CRISTINA DUNLAP APRN 06/30/18 Hydrocodone/Apap 5-325 (NORCO 5-325 TABLET) 1 Each Tablet 1 TAB PO Q6HRS PRN for PAIN, #20 TAB Prov: ANA CRISTINA DUNLAP APRN 06/30/18 ANA CRISTINA DUNLAP APRN Jun 30, 2018 17:51
== END 2018-06-30 18:08 | disposition home or self-care (01) ==
LOC: ER 15:54
DX: K04.7 Periapical abscess without sinus (principal); F31.9 Bipolar disorder, unspecified; Z95.5 Presence of coronary angioplasty implant and graft; Z86.73 Personal history of transient ischemic attack (TIA), and cerebral infarction without residual deficits; Z88.8 Allergy status to other drugs, medicaments and biological substances
CPT/HCPCS: 99283

== ENCOUNTER 2018-07-22 19:39 | Emergency (ER) | payer OTHER ==
[~2018-07-22] VITALS: Ht 185.4 cm; Wt 74.8 kg
[~2018-07-22 19:39] MED LIST changes: +AMOX875T PO; +CLON1TAB11 PO; -CLON1TAB4 PO; +HYDR-3164 PO; -HYDR-971 PO
[2018-07-22 21:10] VITALS: BP 147/78
[2018-07-22] MEDS ORDERED: HYDR-2758 PO (21:54)
--- NOTE | 2018-07-22 21:54 | PHYS DOC ---
Past Medical History Past Medical History: Anxiety, Bipolar, Depression, Seizure, Stroke, Other Additional Past Medical Histor: Lupus;Preeclamp/HELP syn ; Ulcer colitis; Left sided weakness Past Surgical History: Angioplasty, Other Additional Past Surgical Histo: Radhika Filter; Stents (left leg); D&C x2 Alcohol Use: None Drug Use: None Adult General Chief Complaint Chief Complaint: DENTAL PROBLEM HPI HPI Patient is a 27 year old female who presents with seen a dentist for her abscess right lower tooth that also has a cavity she is currently on penicillin taken for the last 2 days. She rates her pain a 10 out of 10. She states she just ran out of her Winfall and her doctor usually refills it because of her lupus but did not fill it. Patient states she is needs to get through until Friday when her doctor will refill her Winfall. Patient states that she sees a specialist on next Friday of which will pull four her teeth. There is no facial swelling. Patient does have swelling to her gumline and to dental caries seen in the right lower back of her mouth. Review of Systems Review of Systems Constitutional: Denies fever or chills [] Eyes: Denies change in visual acuity, redness, or eye pain [] HENT: Right lower gumline is red and swollen with dental caries. Denies nasal congestion or sore throat [] Respiratory: Denies cough or shortness of breath [] Cardiovascular: No additional information not addressed in HPI [] GI: Denies abdominal pain, nausea, vomiting, bloody stools or diarrhea [] : Denies dysuria or hematuria [] Musculoskeletal: Denies back pain or joint pain [] Integument: Denies rash or skin lesions [] Neurologic: Denies headache, focal weakness or sensory changes [] All other systems were reviewed and found to be within normal limits, except as documented in this note. Allergies Allergies Allergies Coded Allergies Type Severity Reaction Last Updated Verified prochlorperazine Allergy Severe DYSTONIC REACTION 02/17/18 Yes warfarin Allergy Intermediate "AGGRAVATES ULCERS IN STOMACH" 02/17/18 Yes Physical Exam Physical Exam Constitutional: Well developed, well nourished, no acute distress, non-toxic appearance. [] HENT: Right lower gumline reddened and swollen with 2 lower back dental caries. No facial swelling. Normocephalic, atraumatic, bilateral external ears normal, oropharynx moist, no oral exudates, nose normal. [] Eyes: PERRLA, EOMI, conjunctiva normal, no discharge. [] Neck: Normal range of motion, no tenderness, supple, no stridor. [] Cardiovascular:Heart rate regular rhythm, no murmur [] Lungs & Thorax: Bilateral breath sounds clear to auscultation [] Abdomen: Bowel sounds normal, soft, no tenderness, no masses, no pulsatile masses. [] Skin: Warm, dry, no erythema, no rash. [] Back: No tenderness, no CVA tenderness. [] Extremities: No tenderness, no cyanosis, no clubbing, ROM intact, no edema. [] Neurologic: Alert and oriented X 3, normal motor function, normal sensory function, no focal deficits noted. [] Psychologic: Affect normal, judgement normal, mood normal. [] Current Patient Data Vital Signs Vital Signs Date Time Temp Pulse Resp B/P (MAP) Pulse Ox O2 Delivery O2 Flow Rate FiO2 07/22/18 21:10 98.7 133 19 147/78 (101) 96 Room Air 98.7 EKG EKG [] Radiology/Procedures Radiology/Procedures [] Course & Med Decision Making Course & Med Decision Making Patient is a 27 year old female who presents with seen a dentist for her abscess right lower tooth that also has a cavity she is currently on penicillin taken for the last 2 days. She rates her pain a 10 out of 10. She states she just ran out of her Winfall and her doctor usually refills it because of her lupus but did not fill it. Patient states she is needs to get through until Friday when her doctor will refill her Winfall. Patient states that she sees a specialist on next Friday of which will pull four her teeth. There is no facial swelling. Patient does have swelling to her gumline and to dental caries seen in the right lower back of her mouth. Afebrile. Skin pink warm and dry. Alert and oriented. Patient is given a prescription for some Winfall to get her through until Friday. Patient is stable and in no distress. [] Dragon Disclaimer Dragon Disclaimer This electronic medical record was generated, in whole or in part, using a voice recognition dictation system. Departure Departure Impression: Primary Impression: Pain, dental Disposition: HOME, SELF-CARE Condition: STABLE Referrals: FILIPPO WILSON (PCP) Patient Instructions: Dental Abscess, Dental Caries Additional Instructions: Keep your appointment for Friday. Continue taking medications as prescribed. Scripts Hydrocodone Bit/Acetaminophen (HYDROCODONE-APAP 5-325 ) 1 Each Tablet 1 TAB PO PRN Q6HRS PRN for PAIN, #15 TAB 0 Refills Prov: NELI RIOJAS APRN 07/22/18 NELI RIOJAS APRN Jul 22, 2018 21:54
== END 2018-07-22 22:09 | disposition home or self-care (01) ==
LOC: ER 19:39
DX: K04.7 Periapical abscess without sinus (principal); F31.9 Bipolar disorder, unspecified; M32.9 Systemic lupus erythematosus, unspecified; Z86.73 Personal history of transient ischemic attack (TIA), and cerebral infarction without residual deficits; Z95.5 Presence of coronary angioplasty implant and graft; Z88.8 Allergy status to other drugs, medicaments and biological substances
CPT/HCPCS: 99283

== ENCOUNTER 2018-10-30 02:01 | Emergency (ER) | payer OTHER ==
[~2018-10-30] VITALS: Ht 185.4 cm; Wt 74.8 kg
[~2018-10-30 02:01] MED LIST changes: +ALBU2.5V8 INH; +HYDR-2761 PO; -HYDR-2762 PO; +HYDR-2765 PO; -PROAIR HFA8.5 GM INH; +TRAZ-118 PO; -TRAZ-85 PO
[2018-10-30 02:09] VITALS: BP 123/76
[2018-10-30] MEDS ORDERED: LIDO15SO2 MM (02:17)
[2018-10-30] MEDS ORDERED: ACET-704 PO (02:17)
[2018-10-30] MEDS ORDERED: CLIN300C8 PO (02:17)
--- NOTE | 2018-10-30 02:18 | PHYS DOC ---
Past Medical History Past Medical History: Anxiety, Bipolar, Depression, Seizure, Stroke, Other Additional Past Medical Histor: Lupus;Preeclamp/HELP syn ; Ulcer colitis; Left sided weakness Past Surgical History: Angioplasty, Other Additional Past Surgical Histo: Radhika Filter; Stents (left leg); D&C x2 Alcohol Use: None Drug Use: None Adult General Chief Complaint Chief Complaint: DENTAL PROBLEM HPI HPI Patient is a 28-year-old female who presents with complaint of left-sided upper dental pain and swelling to her maxillary region. She states that there is an area of her rear molar that she believes had broken off and when she had been eating earlier she thought she had a piece of food stuck In there and was trying to use something to pick out but states that she thinks that she may have hit a nerve because now she is having pain and she states that she is starting to get swelling in her upper jaw area. She denies any fever. She denies any nausea or vomiting. She rates pain as being moderate. Review of Systems Review of Systems Constitutional: Denies fever or chills [] HENT: Positive dental pain and jaw swelling[] Respiratory: Denies cough or shortness of breath [] Cardiovascular: No additional information not addressed in HPI [] Neurologic: Denies headache, focal weakness or sensory changes [] Current Medications Current Medications Current Medications Medications (Trade) Dose Ordered Sig/Cyndi Start Time Stop Time Status Last Admin Dose Admin Acetaminophen/ Codeine Phosphate (Tylenol #3) 1 tab 1X ONCE 10/30/18 02:30 10/30/18 02:32 DC 10/30/18 02:30 1 TAB Clindamycin HCl (Cleocin) 300 mg 1X ONCE 10/30/18 02:30 10/30/18 02:32 DC 10/30/18 02:29 300 MG Allergies Allergies Allergies Coded Allergies Type Severity Reaction Last Updated Verified prochlorperazine Allergy Severe DYSTONIC REACTION 02/17/18 Yes warfarin Allergy Intermediate "AGGRAVATES ULCERS IN STOMACH" 02/17/18 Yes Physical Exam Physical Exam Constitutional: Well developed, well nourished, no acute distress, non-toxic appearance. [] HENT: Examination of mouth demonstrates fairly good dentition. The second left maxillary molar appears to have posterior lower quadrant fractured. There is mild caries. [] Neck: Normal range of motion, no tenderness, supple, no stridor. [] Cardiovascular: Regular rate and rhythm[] Lungs & Thorax: Bilateral breath sounds clear to auscultation [] Neurologic: Alert and oriented X 3, no focal deficits noted. [] Current Patient Data Vital Signs Vital Signs Date Time Temp Pulse Resp B/P (MAP) Pulse Ox O2 Delivery O2 Flow Rate FiO2 10/30/18 02:30 98 Room Air 10/30/18 02:09 98.3 94 20 123/76 (92) 98.3 EKG EKG [] Radiology/Procedures Radiology/Procedures [] Course & Med Decision Making Course & Med Decision Making Pertinent Labs and Imaging studies reviewed. (See chart for details) [] Dragon Disclaimer Dragon Disclaimer This electronic medical record was generated, in whole or in part, using a voice recognition dictation system. Departure Departure Impression: Primary Impression: Pain, dental Disposition: 01 HOME, SELF-CARE Condition: STABLE Referrals: FILIPPO WILSON (PCP) Patient Instructions: Dental Caries, Dental Pain Scripts Lidocaine HCl (Lidocaine HCl Viscous) 15 Ml Solution 1 ML MM Q2HR PRN for dental pain, #100 ML Prov: NICOLE NAQVI Jr. DO 10/30/18 Acetaminophen With Codeine (TYLENOL WITH CODEINE #3 TABLET) 1 Each Tablet 1 TAB PO PRN Q6HRS PRN for PAIN, #12 TAB Prov: NICOLE NAQVI Jr. DO 10/30/18 Clindamycin Hcl (CLINDAMYCIN HCL) 300 Mg Capsule 300 MG PO QID, #40 CAP Prov: NICOLE NAQVI Jr. DO 10/30/18 NICOLE NAQVI Jr. DO Oct 30, 2018 02:18
[2018-10-30] MEDS ORDERED: ACETAMINOPHEN/CODEINE 300/30MG TABLET. PO ONE (02:30)
[2018-10-30] MEDS ORDERED: CLINDAMYCIN HCL 150 MG CAPSULE. PO ONE (02:30)
== END 2018-10-30 02:37 | disposition home or self-care (01) ==
LOC: ER 02:01
DX: K08.89 Other specified disorders of teeth and supporting structures (principal); R22.0 Localized swelling, mass and lump, head; F31.9 Bipolar disorder, unspecified; Z86.73 Personal history of transient ischemic attack (TIA), and cerebral infarction without residual deficits; Z95.5 Presence of coronary angioplasty implant and graft; Z88.8 Allergy status to other drugs, medicaments and biological substances
CPT/HCPCS: 99283

== ENCOUNTER → 2020-02-21 | Outpatient (CLI) | payer MEDICAID ==
[~2020-02-21] VITALS: Ht 185.4 cm; Wt 70.8 kg
[~2020-02-21] MED LIST changes: +ACET-704 PO; -BUPR150T20 PO; +BUPR150T27 PO; -CLON1TAB11 PO; +CLONAZEPAM1 MG PO; +LIDO20SO10 MM; +OMEP40CA45 PO; -OMEP40CA5 PO; -PANT40TA3 PO; +PANT40TA77 PO; +SINCALIDE 1.42 MCG in IV NORMAL SALINE 50ML 30 ML IV ONE; +TRAZ-123 PO; -TRAZ-86 PO; +WARF1TAB2; -WARF1TAB74
--- NOTE | 2020-02-21 07:59 | RAD ---
EXAM: Abdomen sonogram. HISTORY: Right upper quadrant pain. TECHNIQUE: Sonographic imaging of the abdomen was performed. COMPARISON: None. FINDINGS: The liver is normal in size. No focal hepatic lesion is seen. The common bile duct is normal in caliber. The gallbladder is unremarkable. The kidneys right kidney is unremarkable. The inferior vena cava is patent. The pancreas is unremarkable. IMPRESSION: Unremarkable abdomen sonogram. Electronically signed by: Flower Barry MD (02/21/2020 7:56 AM) [id number]
--- NOTE | 2020-02-21 11:10 | RAD ---
EXAM: Nuclear hepatobiliary scan. HISTORY: Pain. TECHNIQUE: Following intravenous administration of 5.5 mCi Tc 99m Choletec, anterior images of the abdomen were obtained at five minute intervals through one hour. Subsequently, 1.42 mcg CCK was administered and additional images to assess gallbladder ejection fraction were obtained. FINDINGS: There is prompt radiotracer uptake by the liver. No focal defect is seen. There is normal excretion into the biliary tree. The gallbladder is visualized within 5 minutes and there is free flow into the duodenum. The gallbladder ejection fraction is 42 percent. IMPRESSION: Normal radionuclide biliary scan. Electronically signed by: Flower Barry MD (02/21/2020 11:07 AM) [id number]
== END | disposition home or self-care (01) ==
LOC: US 07:25
PROVIDERS: ATTEND Internal Medicine Gastroenterology
DX: R10.13 Epigastric pain (principal)
CPT/HCPCS: 76705; 78227; A9537; J2805

== ENCOUNTER 2020-03-05 10:54 | Emergency (ER) | payer MEDICAID ==
[~2020-03-05] VITALS: Ht 188 cm; Wt 68.0 kg
[~2020-03-05 10:54] MED LIST changes: -SINCALIDE 1.42 MCG in IV NORMAL SALINE 50ML 30 ML IV ONE
[2020-03-05] MEDS ORDERED: predniSONE 10 MG TABLET PO ONE (11:45)
[2020-03-05] MEDS ORDERED: IBUPROFEN 200 MG TABLET. PO ONE (11:45)
[2020-03-05 12:00] VITALS: BP 140/88
--- NOTE | 2020-03-05 12:10 | PHYS DOC ---
Past Medical History Past Medical History: Anxiety, Bipolar, Depression, Seizure, Stroke, Other Additional Past Medical Histor: Lupus;Preeclamp/HELP syn ; Ulcerative colitis; Left sided weakness Past Surgical History: Angioplasty, Other Additional Past Surgical Histo: Radhika Filter; Stents (left leg); D&C x2 Smoking Status: Never Smoker Alcohol Use: None Drug Use: None General Adult EDM: Chief Complaint: OTHER COMPLAINTS HPI: HPI: Patient is a 29 year old AA female who presents to the ER after having a temperature reading of 99.9 at work, She states that her employer made her leave work and go to an ER to be evaluated for COVID. Pt denies any known COVID exposure, respiratory sx, or gastrointestinal sx. She states that she has been having a flare of her lupus for the last 2 days. She reports extremity and ankle swelling and generalized joint discomfort. Patient states she is supposed to take prednisone for her lupus flares but has not yet started to take the medication. Patient also reports that she takes Adderall and that that will cause her heart rate to be elevated. Patient reports feeling anxious at this time, she reports that she knows her body and has several chronic conditions that she deals with. Patient states that she feels anxious because she really needs to be at work to make money. She currently rates her discomfort a 2 or 3 out of 10 on the pain scale. She states that she took some Tylenol earlier this morning. Review of Systems: Review of Systems: Constitutional: Denies fever or chills. [] Eyes: Denies change in visual acuity. [] HENT: Denies nasal congestion or sore throat. [] Respiratory: Denies cough or shortness of breath. [] Cardiovascular: Denies chest pain or edema. [] GI: Denies abdominal pain, nausea, vomiting, or diarrhea. [] : Denies dysuria. [] Musculoskeletal: see HPI Integument: Denies rash. [] Neurologic: Denies headache Lymphatic: Denies swollen glands. [] Psychiatric: Denies depression; see HPI Heart Score: Risk Factors: Risk Factors: DM, Current or recent (<one month) smoker, HTN, HLP, family history of CAD, obesity. Risk Scores: Score 0 - 3: 2.5% MACE over next 6 weeks - Discharge Home Score 4 - 6: 20.3% MACE over next 6 weeks - Admit for Clinical Observation Score 7 - 10: 72.7% MACE over next 6 weeks - Early Invasive Strategies Current Medications: Current Medications Medications (Trade) Dose Ordered Sig/Cyndi Start Time Stop Time Status Last Admin Dose Admin Ibuprofen (Motrin) 600 mg 1X ONCE 03/05/20 11:45 03/05/20 11:46 DC Prednisone (Prednisone) 50 mg 1X ONCE 03/05/20 11:45 03/05/20 11:46 DC Allergies: Allergies: Allergies Coded Allergies Type Severity Reaction Last Updated Verified prochlorperazine Allergy Severe DYSTONIC REACTION 02/17/18 Yes warfarin Allergy Intermediate "AGGRAVATES ULCERS IN STOMACH" 02/17/18 Yes Physical Exam: PE: Constitutional: Well developed, well nourished, no acute distress, non-toxic appearance. [] HENT: Normocephalic, atraumatic, bilateral external ears normal, oropharynx moist, no oral exudates, nose normal. [] Eyes: PERRLA, EOMI, conjunctiva normal, no discharge. [] Neck: Normal range of motion, no tenderness, supple, no stridor. [] Cardiovascular:Heart rate regular rhythm, no murmur [] Lungs & Thorax: Bilateral breath sounds clear to auscultation, Respirations even and unlabored, no retractions, no respiratory distress [] Skin: Warm, dry, no erythema, no rash. [] Extremities: BLE: No cyanosis, ROM intact, 1+ edema. [] Neurologic: Alert and oriented X 3, no focal deficits noted. [] Psychologic: Affect normal, judgement normal, mood normal. [] Current Patient Data: Vital Signs: Vital Signs Date Time Temp Pulse Resp B/P (MAP) Pulse Ox O2 Delivery O2 Flow Rate FiO2 03/05/20 11:05 99.2 135 18 163/100 (121) 100 Room Air 99.2 EKG: EKG: [] Radiology/Procedures: Radiology/Procedures: [] Course & Med Decision Making: Course & Med Decision Making Pertinent Labs and Imaging studies reviewed. (See chart for details) [] Dragon Disclaimer: Dragon Disclaimer: This electronic medical record was generated, in whole or in part, using a voice recognition dictation system. Departure Departure Impression: Primary Impression: Chronic pain Qualified Codes: G89.29 - Other chronic pain Additional Impression: Exacerbation of systemic lupus Disposition: HOME, SELF-CARE Condition: STABLE Referrals: NO PCP (PCP) Patient Instructions: Chronic Pain Additional Instructions: Take your prednisone as prescribed for your lupus flares beginning tomorrow. Tylenol or ibuprofen as needed for pain. Follow-up with your primary care doctor if symptoms persist, you did not present with any upper respiratory or gastrointestinal symptoms concerning for COVID 19. You may return to work at this time. Justicifation of Admission Dx: Justifications for Admission: Justification of Admission Dx: N/A MALAIKA OFRD APRN Mar 05, 2020 12:10
== END 2020-03-05 12:32 | disposition home or self-care (01) ==
LOC: ER 10:54
DX: G89.29 Other chronic pain (principal); M32.9 Systemic lupus erythematosus, unspecified; M79.604 Pain in right leg; M79.605 Pain in left leg; F31.9 Bipolar disorder, unspecified; Z86.73 Personal history of transient ischemic attack (TIA), and cerebral infarction without residual deficits; Z95.5 Presence of coronary angioplasty implant and graft; Z88.8 Allergy status to other drugs, medicaments and biological substances
CPT/HCPCS: 99283; J7512

== ENCOUNTER 2020-06-03 15:48 | Emergency (ER) | payer MEDICAID ==
[~2020-06-03] VITALS: Ht 188 cm; Wt 71.3 kg
[2020-06-03 16:35] VITALS: BP 146/98
[2020-06-03] MEDS ORDERED: CLIN300C8 PO (17:11)
[2020-06-03] MEDS ORDERED: HYDR-3164 PO (17:11)
--- NOTE | 2020-06-03 17:11 | PHYS DOC ---
Past Medical History Past Medical History: Anxiety, Bipolar, Depression, Seizure, Stroke, Other Additional Past Medical Histor: Lupus;Preeclamp/HELP syn ; Ulcerative colitis; Left sided weakness Past Surgical History: Angioplasty, Other Additional Past Surgical Histo: Radhika Filter; Stents (left leg); D&C x2 Smoking Status: Never Smoker Alcohol Use: None Drug Use: None General Adult EDM: Chief Complaint: DENTAL PROBLEM HPI: HPI: Patient is a 29 year old female who presents with 3 days of right facial sw elling and dental pain. She is also states that she got a pedicure about a week ago and now she has left great toe swelling and redness and some tenderness. Patient is rating her total pain a 10 out of 10. She states that she has been using Tylenol and ibuprofen together but is not helping. She states that she does have a dentist and the [facility] dentist will not operate on her because they have to put her to sleep because of her past medical history. Patient has many dental caries and has a right lower broken tooth and a right upper dental valentin molar. Patient has right-sided facial swelling as well. There is no cellulitis. She denies fever, nausea, vomiting, body aches, diarrhea, abdominal pain, nausea,, dizziness, syncope, chest pain, shortness of air. Review of Systems: Review of Systems: Constitutional: Denies fever or chills. [] Eyes: Denies change in visual acuity. [] HENT: Denies nasal congestion or sore throat. Right-sided facial swelling with broken teeth and dental caries. [] Respiratory: Denies cough or shortness of breath. [] Cardiovascular: Denies chest pain or edema. [] GI: Denies abdominal pain, nausea, vomiting, bloody stools or diarrhea. [] : Denies dysuria. [] Musculoskeletal: Denies back pain or joint pain. Left great toe tenderness [] Integument: Denies rash. Left great toe redness. [] Neurologic: Denies headache, focal weakness or sensory changes. [] Endocrine: Denies polyuria or polydipsia. [] Lymphatic: Denies swollen glands. [] Psychiatric: Denies depression or anxiety. [] Heart Score: Risk Factors: Risk Factors: DM, Current or recent (<one month) smoker, HTN, HLP, family history of CAD, obesity. Risk Scores: Score 0 - 3: 2.5% MACE over next 6 weeks - Discharge Home Score 4 - 6: 20.3% MACE over next 6 weeks - Admit for Clinical Observation Score 7 - 10: 72.7% MACE over next 6 weeks - Early Invasive Strategies Allergies: Allergies: Allergies Coded Allergies Type Severity Reaction Last Updated Verified prochlorperazine Allergy Severe DYSTONIC REACTION 02/17/18 Yes warfarin Allergy Intermediate "AGGRAVATES ULCERS IN STOMACH" 02/17/18 Yes Physical Exam: PE: Constitutional: Well developed, well nourished, no acute distress, non-toxic appearance. [] HENT: Normocephalic, atraumatic, bilateral external ears normal, oropharynx moist, no oral exudates, nose normal. Many dental caries. Facial swelling. [] Eyes: PERRLA, EOMI, conjunctiva normal, no discharge. [] Neck: Normal range of motion, no tenderness, supple, no stridor. [] Cardiovascular:Heart rate regular rhythm, no murmur [] Lungs & Thorax: Bilateral breath sounds clear to auscultation [] Abdomen: Bowel sounds normal, soft, no tenderness, no masses, no pulsatile masses. [] Skin: Warm, dry, no erythema, no rash. Left great toe paronchyia. [] Back: No tenderness, no CVA tenderness. [] Extremities: No tenderness, no cyanosis, no clubbing, ROM intact, no edema. [] Neurologic: Alert and oriented X 3, normal motor function, normal sensory funct ion, no focal deficits noted. [] Psychologic: Affect normal, judgement normal, mood normal. [] Current Patient Data: Vital Signs: Vital Signs Date Time Temp Pulse Resp B/P (MAP) Pulse Ox O2 Delivery O2 Flow Rate FiO2 06/03/20 16:35 98.6 102 20 146/98 (114) 99 Room Air 98.6 EKG: EKG: [] Radiology/Procedures: Radiology/Procedures: [] Course & Med Decision Making: Course & Med Decision Making Pertinent Labs and Imaging studies reviewed. (See chart for details) See HPI. Alert and oriented x4. Ambulatory to steady gait. Afebrile. Vital signs within normal limits. Patient has a left great toe Paronchyia. There is no cellulitis to the toe and there is no drainage. Part of the toe is hard with palpation is not joint. Patient will be placed on Romycin for both the dental abscess and toe infection. [] Dragon Disclaimer: Juma Disclaimer: This electronic medical record was generated, in whole or in part, using a voice recognition dictation system. Departure Departure Impression: Primary Impression: Dental abscess Additional Impression: Paronychia due to ingrown nail Disposition: HOME, SELF-CARE Condition: STABLE Referrals: NO PCP (PCP) Patient Instructions: Dental Abscess, Dental Caries, Paronychia, [id number] Additional Instructions: Use the dental resources we have provided for you to call your dentist as soon as possible. Take medication as prescribed and with food. Drink plenty of fluids. Scripts Hydrocodone/Apap 5-325 (NORCO 5-325 TABLET) 1 Each Tablet 1 TAB PO PRN Q6HRS PRN for PAIN, #6 TAB 0 Refills Prov: NELI RIOJAS [employer] 06/03/20 Clindamycin Hcl (CLINDAMYCIN HCL) 300 Mg Capsule 300 MG PO QID, #10 CAP Prov: NELI RIOJAS [employer] 06/03/20 NELI RIOJAS [employer] Jun 03, 2020 17:11
== END 2020-06-03 17:57 | disposition home or self-care (01) ==
LOC: ER 16:03
DX: K04.7 Periapical abscess without sinus (principal); L03.032 Cellulitis of left toe; R60.0 Localized edema; F32.9 Major depressive disorder, single episode, unspecified; F41.9 Anxiety disorder, unspecified; Z90.89 Acquired absence of other organs; Z98.890 Other specified postprocedural states
CPT/HCPCS: 99283

== ENCOUNTER → 2021-06-22 | Outpatient (CLI) | payer MEDICAID ==
[~2021-06-22] MED LIST changes: +BUPR150T21 PO; -BUPR150T6 PO; +CLIN-94 PO; -CLIN300C8 PO; +CONTRAST GIVEN. MC PRN; +IOHEXOL 240 MG/ML 50ML VIAL. PO ONE; +IOHEXOL 300 MG/ML 100ML VIAL. IV ONE; -OMEP40CA45 PO; +OMEP40CA7 PO
--- NOTE | 2021-06-22 10:52 | RAD ---
INDICATION: Reason: ULCERATIVE COLITIS AND ABDOMINAL PAIN / Spl. Instructions: OMNI 300 INJ. 75 MLS. OMNI 240 PO 30 MLS / History: COMPARISON: October 2014 TECHNIQUE: Axial CT images were obtained through the abdomen and pelvis with intravenous contrast. One or more of the following individualized dose reduction techniques were utilized for this examinat ion: 1. Automated exposure control; 2. Adjustment of the mA and/or kV according to patient size; 3 . Use of iterative reconstruction technique. FINDINGS: Calcified granuloma right lung base. Additional noncalcified right lower lung pulmonary nodule measur ing less than 4 mm. Vascular: Inferior vena cava filter. Stent seen within the left common iliac vein. Additional stent s een at the left common femoral vein. Hepatobiliary: Liver is borderline low density. Mild fatty infiltration not excluded. Pancreas: No peripancreatic edema. Spleen: Spleen unremarkable. Renal/Bladder: Urinary bladder is well distended at time of exam. Mild prominence bilateral extrarena l pelvis. There is a couple of subcentimeter low-density right renal lesions which are most commonly secondary to cyst. Gastrointestinal: Within the left adnexa there is a rim-enhancing low-density lesion measuring approx imately 30 x 23 mm. Moderate stool throughout the colon. The appendix is distended with intraluminal content without adjacent inflammatory changes. Small fat-containing umbilical hernia. Subcutaneous nodule at the right side of the back posteriorly. Could be skin associated or secondary to alternative causes such as fat necrosis. There is some sclerosis at the sacroiliac joints which could be from chronic sacroiliitis or degenera tive in nature. Mild degenerative changes the spine with mild disc protrusion. IMPRESSION: * Moderate amount of stool within portions of the colon which appears distended. Could be from caus es such as constipation. * No evidence of bowel obstruction or appendicitis. The bowel loops do not appear significantly infl jessica at this time. * Rim-enhancing low-density lesion at the left adnexa which could be ovarian in nature. If further e valuation is needed ultrasound could further assess. Electronically signed by: German Carrizales MD (06/22/2021 10:50 AM) [id number]
== END ==
LOC: CT 09:23
PROVIDERS: ATTEND Internal Medicine Gastroenterology
DX: K42.9 Umbilical hernia without obstruction or gangrene (principal); K51.90 Ulcerative colitis, unspecified, without complications; R10.9 Unspecified abdominal pain; J84.10 Pulmonary fibrosis, unspecified; R91.1 Solitary pulmonary nodule; N32.89 Other specified disorders of bladder
CPT/HCPCS: 74177; Q9966; Q9967